=== PATIENT | female | born 1935 | race Caucasian/White ===

== ENCOUNTER → 2018-05-18 | Outpatient (CLI) | payer MEDICARE, OTHER ==
[2018-05-18 12:33] LABS: Appearance,Urine Clear (Clear); Bacteria,Urine Rare /hpf; Bilirubin,Urine Negative (Negative); Blood,Urine Negative (Negative); Color,Urine Yellow; Glucose,Urine (UA) Negative (Negative); Ketones,Urine Negative (Negative); Leukocyte Esterase,Urine Trace (Negative); Mucus,Urine Rare /hpf; Nitrite,Urine Negative (Negative); PH, Urine 5.5 (5.0-8.0); Protein,Urine 1+ (Negative); RBC,Urine 5 /hpf (0-5); Specific Gravity,Urine 1.018 (1.001-1.035); Squamous Epithelial Cell,Urine 2 /hpf (0-4); Urobilinogen,Urine <2.0 mg/dL (<2.0); WBC,Urine 2 /hpf (0-5)
[2018-05-18 13:40] LABS: HCT 41.5 % (34.0-46.0); HGB 13.3 gm/dL (11.4-16.0); MCH 27.6 pg (25.0-35.0); MCHC 32.1 g/dL (31.0-37.0); MCV 85.9 fL (80.0-100.0); Mean Platelet Volume 7.2; Platelet Count 478 k/uL (150-450); RBC 4.83 m/uL (3.80-5.40); RDW 13.9 % (11.5-15.5); WBC 8.6 k/uL (3.8-10.6)
[2018-05-18 13:47] LABS: Partial Thromboplastin Time 23.8 sec (22.0-30.0); Prothrombin Time 9.7 sec (9.0-12.0)
[2018-05-18 14:03] LABS: Albumin 3.9 g/dL (3.5-5.0); Calcium 9.2 mg/dL (8.4-10.2); Potassium 4.9 mmol/L (3.5-5.1); Total Bilirubin 0.3 mg/dL (0.2-1.3); Total Protein 7.2 g/dL (6.3-8.2)
== END ==
LOC: LABPAT 11:25
PROVIDERS: ATTEND Orthopaedic Surgery
DX: Z01.812 Encounter for preprocedural laboratory examination (principal); M19.90 Unspecified osteoarthritis, unspecified site
CPT/HCPCS: 36415; 80053; 81001; 85027; 85610; 85730; 87070; 87086

== ENCOUNTER 2018-05-25 07:00 | Inpatient (IN) | payer MEDICARE, OTHER ==
[~2018-05-25 07:00] MED LIST: ACETAMINOPHEN TAB 500 MG TAB PO ONE; MELOXICAM 7.5 MG TAB PO ONE; ROPIVACAINE 246.25 MG, EPINEPHrine 0.5 MG, KETOROLAC 30 MG, cloNIDine HCL/PF 80 MCG, WA... MISCELLANE ONE; TRANEXAMIC ACID 1,000 MG in SODIUM CHLORIDE 0.9% 50 ML IVPB ONE; ceFAZolin IN SWFI 2 GM/20 ML SYRINGE IVP ONE
[2018-05-25] MEDS ORDERED: LIDOCAINE 1% 20 ML VIAL (10MG/ML) FOR IV START INTRADERMA ONE (07:37)
[2018-05-25] MEDS ORDERED: LACTATED RINGERS 1,000 ML IV ONE ×2 (07:38→11:04)
[2018-05-25] MEDS ORDERED: DEXAMETHASONE SOD PHOS (MDV) 100 MG/10 ML VIAL IVP ONE (07:39)
[2018-05-25] MEDS ORDERED: ONDANSETRON 4 MG/2 ML VIAL IVP ONE (07:39)
[2018-05-25] MEDS ORDERED: HYDROmorphone 0.5 MG/0.5 ML SYRINGE IVP PRN ×3 (09:37)
[2018-05-25] MEDS ORDERED: DIAZEPAM 5 MG TAB PO PRN (09:37)
[2018-05-25] MEDS ORDERED: MAGNESIUM HYDROXIDE 2,400 MG/10 ML CUP PO PRN (09:37)
[2018-05-25] MEDS ORDERED: NALOXONE 0.4 MG/ML 1 ML VIAL IV PRN (09:37)
[2018-05-25] MEDS ORDERED: HYDROcodone/APAP 5-325MG 1 EACH TAB PO PRN ×2 (09:37)
[2018-05-25] MEDS ORDERED: Acetaminophen-Codeine 300-30mg TAB PO PRN (09:41)
[2018-05-25] MEDS ORDERED: fentaNYL (PF) 50 MCG/ML 2 ML AMP ONE (09:48)
[2018-05-25] MEDS ORDERED: HEPARIN SODIUM,PORCINE 10,000 UNIT/ML 1 ML VIAL ONE (09:48)
[2018-05-25] MEDS ORDERED: ceFAZolin 3,000 MG in SODIUM CHLORIDE 0.9% IRRIGATIO 3,000 ML IRRIGATION ONE (09:48)
[2018-05-25] MEDS ORDERED: MIDAZOLAM 2 MG/2 ML VIAL ONE (09:48)
[2018-05-25] MEDS ORDERED: SODIUM CHLORIDE 0.9% IRRIG 1,000 ML BTL IRRIGATION ONE (09:48)
[2018-05-25] MEDS ORDERED: TRANEXAMIC ACID 1,000 MG/10 ML VIAL ONE (09:48)
[2018-05-25] MEDS ORDERED: diphenhydrAMINE 50 MG/ML 1 ML VIAL ONE (09:48)
[2018-05-25] MEDS ORDERED: SODIUM CHLORIDE 0.9% 100 ML BAG ONE (09:48)
--- NOTE | 2018-05-25 11:00 | P.OP ---
Date of Procedure: 05/25/18 Preoperative Diagnosis: Severe osteoarthritis right hip Postoperative Diagnosis: Severe osteoarthritis right hip Procedure(s) Performed: Right total hip arthroplasty with a direct anterior approach Implants: Araiza and nephew Polarstem size 4 standard [employer]iza [employer] Nephew R3, 3 hole acetabular shell, 48 mm [employer] Nephew reflection 6.5 mm cancellus screw, 20 mm 2 [employer]iza [employer]hew R3, XLPE 20 acetabular liner [employer]iza [employer] Nephew Oxinium femoral head 32 m, +0 All components were press-fit. The articulation is Oxinium on polyethylene. Anesthesia: spinal Surgeon: Mehrdad Urena Pasting Machine Offbearer #1: Lorrie Vargas Estimated Blood Loss (ml): 50 Pathology: other (Femoral head) Condition: stable Disposition: PACU Indications for Procedure: After failure of conservative treatment we discussed the surgical and nonsurgical treatment options at length. Patient wishes to proceed with a total hip arthroplasty with a direct anterior approach. Complications specific to this procedure were discussed at length, including but not limited to infection, leg length discrepancy, dislocation, and nerve injury. Patient is aware of all these complications and informed consent was obtained Operative Findings: The operative findings are consistent with severe osteoarthritis of the right hip Description of Procedure: Patient was seen and evaluated in the preoperative area, consent was reviewed, and the surgical site was marked with a skin marker. Patient was then brought to the operating room and given prophylactic antibiotics intravenously. 1 g of Tranexamic acid was also given. A spinal anesthetic was administered by the anesthesia department. The patient was then placed on the [place] table with the bony prominences well-padded. The hip area was then prepped and draped in usual sterile fashion. A universal timeout was then performed, which confirmed the patient's name, surgical site, ALLERGIES, and procedure being performed. Next the incision site was located at 1 cm distal and 1 cm lateral to the anterior superior iliac spine. The skin and subcutaneous tissues were sharply incised. Incision was carefully dissected down to the fascia overlying the tensor fascia denise muscle. This fascia was then incised in line with the incision. Next, using blunt finger dissection, the tensor fascia denise muscle was dissected off its investing fascia. The muscle was then carefully retracted laterally with a cobra retractor over the lateral neck of the femur. Next, the circumflex vessels were identified and cauterized using the AquaMantis device. The anterior hip capsule was then exposed. The capsule was then opened and an inverted T fashion. Cobra retractors were then placed intracapsularly. The proximal femur was then visualized. The femoral neck was then osteotomized appropriate level above the lesser trochanter. Small amount of traction was placed with the [place] table. A small wedge of bone was then removed from the remaining femoral head. Next, using a corkscrew femoral head was easily removed from the acetabulum. On gross visual inspection, the femoral head had complete loss of articular cartilage in multiple periarticular osteophytes. Attention was then turned to the acetabulum. the acetabulum was exposed and any remaining labrum was excised. Sequential reaming of the acetabulum was performed using fluoroscopic guidance. When the appropriate size was reached, a trial was then placed. The position and fit of the trial was checked with fluoroscopy. The trial was then removed. Then, using fluoroscopic guidance, the final implant was impacted at 20 of anteversion and 40 of abduction, and fully seated in the acetabulum. 2 screws were then placed in the acetabulum. Again fluoroscopy was used to check position of the screws. Next, the liner was then impacted, with a 20 elevated liner located in the anterior superior quadrant. Component locking was confirmed. Attention was then directed to the femur. With the aid of the [place] table, the femur was externally rotated to approximately 130, extended, and abducted under the opposite leg. A side hook was then placed under the proximal femur, and the side hook elevator was used to elevate the proximal femur. Retractors were then placed. A capsular release was performed, as well as a release of the conjoined tendon, which afforded excellent visualization of the proximal femur. Next, a box osteotome was used to lateralize the proximal femur. A endband cutter hand was then used to locate the femoral canal. Sequential broaching was then performed with appropriate size which afforded excellent fixation in the proximal femur. A trial was then placed with appropriate head and neck, and the hip was gently reduced with the aid of the [place] table. Fluoroscopy was then used to check position of the components, as well as to ensure equal leg lengths. The hip was then gently dislocated and the trials were then removed. Final implants were then impacted and the hip was again reduced. Final fluoroscopic x-rays confirmed that the components were in anatomic position, as well as equal leg lengths. The hip was also taken through range of motion, and found to be stable. The hip was then copiously irrigated with antibiotic solution with pulsatile lavage. The hip was then irrigated with Irrisept solution. The soft tissues were then injected with a ropivacaine solution, which consisted of 246.25 mg of ropivacaine, 0.5 mg of epinephrine, 30 mg of Toradol, 80 g of clonidine, and 48.45 mL of sterile water, for a total of 100 mL of fluid injected. A second dose of 1 g of Tranexamic acid was also given. the fascia was then closed with 2-0 strata fix suture. The subcutaneous tissue was closed with 3-0 Vicryl. The subcuticular tissue was closed with 3-0 strata fix suture. The skin was then closed with Dermabond glue and a sterile silver dressing. The patient was then transferred to the recovery room in stable condition. The pastrycook's assistant MOHIT Martinez was required due to the complexity of surgery, and the need for skilled surgical corsetier for positioning, draping, exposure, retraction, and closure of the wound.
--- NOTE | 2018-05-25 11:28 | FL ---
EXAMINATION TYPE: FL guidance operating room, XR Hip Limited RT DATE OF EXAM: 05/25/2018 CLINICAL HISTORY: Right hip replacement. Right hip pain. TECHNIQUE: Fluoroscopy. COMPARISON: None. FINDINGS/IMPRESSION: Fluoroscopic guidance was provided during procedure performed by Dr. Urena. A total of 38 seconds of fluoroscopic time was utilized during the procedure and 2 spot images was a cquired.
--- NOTE | 2018-05-25 12:15 | XR ---
EXAMINATION TYPE: XR Hip Limited RT DATE OF EXAM: 05/25/2018 CLINICAL HISTORY: Status post right hip arthroplasty. Right hip pain. TECHNIQUE: AP and frogleg views of the right hip are obtained. COMPARISON: None. FINDINGS: There is no acute fracture/dislocation evident in the right hip. The joint space in the r ight hip appears within normal limits. The overlying soft tissue appears unremarkable. IMPRESSION: There is no acute fracture or dislocation in the right hip.
[2018-05-25 13:14] VITALS: BMI 30.6
[2018-05-25] MEDS: SODIUM CHLORIDE 0.9% 1,000 ML IV SCH (14:09)
[2018-05-25] MEDS: LACTATED RINGERS 1,000 ML IV SCH (14:09)
--- NOTE | 2018-05-25 14:52 | P.CONS ---
History of Present Illness - Reason for Consult Recommendations regarding antihypertensive medications - History of Present Illness This is a very pleasant 82-year-old female admitted for elective right hip arthroplasty, patient's oxacillin underwent surgery clinically doing well did not pass gas yet did not move her bowel yet. Her pain is well controlled. Patient did take her amlodipine today morning her blood pressure is fairly controlled patient is on very minimal dose of hydralazine which doesn't even affect the blood pressure because of which this will be discontinued Review of Systems REVIEW OF SYSTEMS: CONSTITUTIONAL: No fever, no malaise, no fatigue. HEENT: No recent visual problems or hearing problems. Denied any sore throat. CARDIOVASCULAR: No chest pain, orthopnea, PND, no palpitations, no syncope. PULMONARY: No shortness of breath, no cough, no hemoptysis. GASTROINTESTINAL: No diarrhea, no nausea, no vomiting, no abdominal pain. Normoactive bowel sounds. NEUROLOGICAL: No headaches, no weakness, no numbness. HEMATOLOGICAL: Denies any bleeding or petechiae. GENITOURINARY: Denies any burning micturition, frequency, or urgency. MUSCULOSKELETAL/RHEUMATOLOGICAL: Denies any joint pain, swelling, or any muscle pain. ENDOCRINE: Denies any polyuria or polydipsia. The rest of the 14-point review of systems is negative. Past Medical History Past Medical History: CVA/TIA, Eye Disorder, Hearing Disorder / Deafness, Hyperlipidemia, Hypertension, Osteoarthritis (OA), Thyroid Disorder Additional Past Medical History / Comment(s): GLAUCOMA. 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 History of Any Multi-Drug Resistant Organisms: None Reported Past Surgical History: Appendectomy, Joint Replacement Additional Past Surgical History / Comment(s): BILATERAL SHOULDER ARTHROPLASTY. BILATERAL CATARACTS W/ LENS IMPLANTS. TOTAL LT HIP. Past Anesthesia/Blood Transfusion Reactions: No Reported Reaction Past Psychological History: No Psychological Hx Reported Smoking Status: Never smoker Past Alcohol Use History: None Reported Past Drug Use History: None Reported - Past Family History Father Family Medical History: Cancer Medications and Allergies Home Medications Medication Instructions Recorded Confirmed Type Ibuprofen 800 mg PO DAILY PRN 07/17/17 05/25/18 History Timolol 0.5% Ophth Soln [Timoptic 1 drop BOTH EYES DAILY 07/17/17 05/25/18 History 0.5% Ophth Soln] Ascorbic Acid [Vitamin C] 500 mg PO DAILY 05/18/18 05/25/18 History Fiber Supplement 1 cap PO DAILY 05/18/18 05/25/18 History Vitamin B Complex/Folic Acid 0.4 mg PO DAILY 05/18/18 05/25/18 History [B-Complex Tablet] amLODIPine [Norvasc] 10 mg PO DAILY 05/18/18 05/25/18 History hydrALAZINE HCL [Apresoline] 10 mg PO TID 05/18/18 05/25/18 History prednisoLONE ACETATE 1% OPHTH 1 drops BOTH EYES QID 05/18/18 05/25/18 History [Pred Forte 1%] Allergies Allergy/AdvReac Type Severity Reaction Status Date / Time alcohol Allergy Nausea & Verified 05/25/18 13:17 Vomiting hydrocodone [From Vicodin] Allergy Itching Verified 05/25/18 13:17 tramadol [From Ultram] Allergy Unknown Verified 05/25/18 13:17 Physical Exam Vitals: Vital Signs Temp Pulse Pulse Resp BP BP Pulse Ox 05/25/18 14:15 150/90 05/25/18 12:45 18 05/25/18 12:15 82 18 142/65 95 05/25/18 12:00 82 16 139/63 95 05/25/18 11:45 84 16 127/59 94 L 05/25/18 11:38 82 16 135/60 96 05/25/18 11:23 98.0 F 84 16 127/59 94 L 05/25/18 07:29 97.6 F 88 18 145/75 97 Intake and Output 05/24/18 05/25/18 05/25/18 22:59 06:59 14:59 Intake Total 1101 Output Total 50 Balance 1051 Intake: IV 1101 Output: Estimated Blood Loss 50 Other: Weight 81 kg PHYSICAL EXAMINATION: GENERAL: The patient is alert and oriented x3, not in any acute distress. Well developed, well nourished. HEENT: Pupils are round and equally reacting to light. EOMI. No scleral icterus. No conjunctival pallor. Normocephalic, atraumatic. No pharyngeal erythema. No thyromegaly. CARDIOVASCULAR: S1 and S2 present. No murmurs, rubs, or gallops. PULMONARY: Chest is clear to auscultation, no wheezing or crackles. ABDOMEN: Soft, nontender, nondistended, normoactive bowel sounds. No palpable organomegaly. MUSCULOSKELETAL: Deferred to orthotics surgery patient doesn't have any surgical drain EXTREMITIES: No cyanosis, clubbing, or pedal edema. NEUROLOGICAL: Gross neurological examination did not reveal any focal deficits. SKIN: No rashes. Assessment and Plan Plan: -Left hip arthroplasty postoperative day 0: Patient postoperatively is clinically doing well. Pain management DVT prophylaxis as per primary service. Considering her age patient is high risk for narcotic induced delirium, if possible please try and avoid opiates, benzodiazepines, barbiturates, anticholinergic medications. -Hypertension: Continue with amlodipine, hydralazine is not beneficial particularly at her dose that will be discontinued -Hyperlipidemia -CVA TIA in the past
[2018-05-25] MEDS: Acetaminophen-Codeine 300-30mg TAB PO PRN (15:48)
[2018-05-25] MEDS: ceFAZolin IN SWFI 2 GM/20 ML SYRINGE IVP SCH (15:49)
[2018-05-25] MEDS: prednisoLONE ACETATE 1% OPHTH DROPS 5 ML BTL BOTH EYES SCH ×2 (18:05→22:42)
[2018-05-25] MEDS: ASPIRIN 325 MG TAB PO SCH (20:51)
[2018-05-25] MEDS: SENNOSIDES-DOCUSATE SODIUM 1 EACH TAB PO SCH (20:51)
[2018-05-25] MEDS: hydrALAZINE HCL 10 MG TAB PO SCH (22:40)
[2018-05-26] MEDS: ceFAZolin IN SWFI 2 GM/20 ML SYRINGE IVP SCH (00:04)
[2018-05-26] MEDS: SODIUM CHLORIDE 0.9% 1,000 ML IV SCH ×2 (01:34→18:16)
[2018-05-26] MEDS: Acetaminophen-Codeine 300-30mg TAB PO PRN (02:41)
[2018-05-26] MEDS: LACTATED RINGERS 1,000 ML IV SCH (06:12)
--- NOTE | 2018-05-26 08:23 | P.PN ---
Subjective Progress Note Date: 05/26/18 This is an 82-year-old female who is status post right total hip arthroplasty. This is postoperative day #1. Patient is seen and evaluated at bedside with Dr. Mehrdad Urena. Patient states that her pain is well controlled today and she has been up and out of bed. Patient denies any fever/chills, numbness, weakness, tingling, abdominal pain, shortness of breath or chest pain. Objective - Vital Signs Vital signs: Vital Signs Temp 98.1 F 05/26/18 01:59 Pulse 86 05/26/18 01:59 Resp 16 05/26/18 01:59 BP 148/85 05/26/18 01:59 Pulse Ox 93 L 05/26/18 01:59 Intake & Output 05/25/18 05/26/18 05/26/18 18:59 06:59 18:59 Intake Total 1101 Output Total 50 Balance 1051 Weight 81 kg Intake: IV 1101 Output: Estimated Blood Loss 50 Other: # Voids 1 - Exam Vital signs are stable. Patient is in no acute distress and is alert and oriented 3. Calf is soft and nontender to palpation. Dressing is clean, dry, and intact. Patient has full foot and ankle motion without pain or difficulty. Neurovascular status and circulatory status are intact. Assessment and Plan (1) Primary osteoarthritis of right hip Current Visit: Yes Status: Acute Code(s): M16.11 - UNILATERAL PRIMARY OSTEOARTHRITIS, RIGHT HIP SNOMED Code(s): 542073005 (2) S/P total hip arthroplasty Current Visit: No Status: Acute Code(s): Z96.649 - PRESENCE OF UNSPECIFIED ARTIFICIAL HIP JOINT SNOMED Code(s): 262379961172 Plan: Continue routine postop care. Continue antocoagulation. Weightbearing as tolerated with a walker. Leave dressing in place for 10 days. Likely discharge home tomorrow.
[2018-05-26] MEDS: ASPIRIN 325 MG TAB PO SCH ×2 (08:30→20:14)
[2018-05-26] MEDS: MELOXICAM 7.5 MG TAB PO SCH (08:31)
[2018-05-26] MEDS: hydrALAZINE HCL 10 MG TAB PO SCH (08:47)
[2018-05-26] MEDS: amLODIPine 10 MG TAB PO SCH (08:47)
[2018-05-26] MEDS: TIMOLOL 0.5% OPHTH DROPS 5 ML BTL BOTH EYES SCH (08:50)
[2018-05-26] MEDS: prednisoLONE ACETATE 1% OPHTH DROPS 5 ML BTL BOTH EYES SCH ×4 (08:50→19:49)
[2018-05-26 10:48] LABS: Basophils % (A) 0 %; Eosinophils % (A) 0 %; HCT 36.6 % (34.0-46.0); HGB 11.8 gm/dL (11.4-16.0); Lymphocytes # (A) 1.9 k/uL (1.0-4.8); Lymphocytes % (A) 12 %; MCH 27.9 pg (25.0-35.0); MCHC 32.3 g/dL (31.0-37.0); MCV 86.2 fL (80.0-100.0); Mean Platelet Volume 7.3; Monocytes # (A) 0.8 k/uL (0-1.0); Monocytes % (A) 5 %; Neutrophils # (A) 13.2 k/uL (1.3-7.7); Neutrophils % (A) 82 %; Platelet Count 433 k/uL (150-450); RBC 4.24 m/uL (3.80-5.40); RDW 14.1 % (11.5-15.5)
--- NOTE | 2018-05-26 18:46 | P.PN ---
Subjective Progress Note Date: 05/26/18 Progress note being dictated for Dr. Rao. Interval history:This is a very pleasant 82-year-old female admitted for elective right hip arthroplasty, patient's oxacillin underwent surgery clinically doing well did not pass gas yet did not move her bowel yet. Her pain is well controlled. Patient did take her amlodipine today morning her blood pressure is fairly controlled patient is on very minimal dose of hydralazine which doesn't even affect the blood pressure because of which this will be discontinued 05/26/2018 continues to do well. Ambulated with physical therapy, tolerated exertion well. Denies any lightheadedness dizziness or focal deficits Good diet intake with no nausea or vomiting. Passing flatus, no bowel movement. Incentive spirometer up to 1200. Objective - Vital Signs Vital signs: Vital Signs Temp 98.2 F 05/26/18 15:00 Pulse 85 05/26/18 15:00 Resp 12 05/26/18 15:00 BP 120/72 05/26/18 15:00 Pulse Ox 95 05/26/18 15:00 Intake & Output 05/25/18 05/26/18 05/26/18 18:59 06:59 18:59 Intake Total 1101 Output Total 50 Balance 1051 Weight 81 kg Intake: IV 1101 Output: Estimated Blood Loss 50 Other: # Voids 1 3 - Exam GENERAL: Sitting up in chair, alert and oriented x3, not in any acute distress. HEENT: Pupils are round and equally reacting to light. EOMI. No scleral icterus. No conjunctival pallor. Normocephalic, atraumatic. CARDIOVASCULAR: S1 and S2 present. No murmurs, rubs, or gallops. PULMONARY: Chest is clear to auscultation, no wheezing or crackles. ABDOMEN: Soft, nontender, nondistended, normoactive bowel sounds. No palpable organomegaly. MUSCULOSKELETAL: Deferred to orthotics EXTREMITIES: No cyanosis, clubbing, or pedal edema. NEUROLOGICAL: Gross neurological examination did not reveal any focal deficits. SKIN: No rashes. - Labs CBC & Chem 7: 05/26/18 08:35 Labs: Abnormal Lab Results - Last 24 Hours (Table) 05/26/18 Range/Units 08:35 WBC 16.0 H (3.8-10.6) k/uL Neutrophils # 13.2 H (1.3-7.7) k/uL Assessment and Plan Assessment: -Left hip arthroplasty -Hypertension: Continue with amlodipine, hydralazine is not beneficial particularly at her dose, discontinued -Hyperlipidemia -CVA TIA in the past Plan: Continue current medication regime ,monitoring and symptomatic treatment. Aggressive pulmonary toileting with incentive spirometer reinforced. PT. Pain management, anticoagulation as per orthopedic surgery. Leukocytosis, suspect reactive, repeat labs in am. Discharge planning in progress for tomorrow. The impression and plan of care has been dictated as directed. : I performed a history and examination of this patient, discussed the same with the dictator. I agree with the dictator's note ,documented as a scribe. Any additional findings or plans will be noted.
[2018-05-26] MEDS: SENNOSIDES-DOCUSATE SODIUM 1 EACH TAB PO SCH (20:14)
[2018-05-26] MEDS ORDERED: ZOLPIDEM 5 MG TAB PO PRN (23:41)
[2018-05-27] MEDS: LACTATED RINGERS 1,000 ML IV SCH (05:58)
[2018-05-27] MEDS: SODIUM CHLORIDE 0.9% 1,000 ML IV SCH (06:00)
[2018-05-27 07:41] LABS: Basophils # (A) 0.1 k/uL (0-0.2); Basophils % (A) 1 %; Eosinophils # (A) 0.2 k/uL (0-0.7); Eosinophils % (A) 2 %; HCT 33.7 % (34.0-46.0); HGB 10.9 gm/dL (11.4-16.0); Lymphocytes # (A) 1.7 k/uL (1.0-4.8); Lymphocytes % (A) 16 %; MCH 27.8 pg (25.0-35.0); MCHC 32.5 g/dL (31.0-37.0); MCV 85.7 fL (80.0-100.0); Mean Platelet Volume 7.1; Monocytes # (A) 0.7 k/uL (0-1.0); Monocytes % (A) 7 %; Neutrophils % (A) 74 %; Platelet Count 343 k/uL (150-450); RBC 3.93 m/uL (3.80-5.40); RDW 14.3 % (11.5-15.5); WBC 10.9 k/uL (3.8-10.6)
[2018-05-27 07:55] LABS: Calcium 8.7 mg/dL (8.4-10.2); Potassium 4.1 mmol/L (3.5-5.1)
--- NOTE | 2018-05-27 08:20 | P.DS ---
Providers Date of admission: 05/25/18 07:00 Expected date of discharge: 05/27/18 Attending physician: Mehrdad Urena Consults: 05/25/18 09:37 Consult Physician Routine Consulting Provider: Karo Goel Consult Reason/Comments: medical management Do you want consulting provider notified?: Yes 05/25/18 12:02 Consult Physician Routine Consulting Provider: Ranjan Wolf Consult Reason/Comments: medical managment Do you want consulting provider notified?: Yes Primary care physician: Karo Goel - Discharge Diagnosis(es) (1) Primary osteoarthritis of right hip Current Visit: Yes Status: Acute (2) S/P total hip arthroplasty Current Visit: No Status: Acute Hospital Course: This is a 82-year-old female with known history of degenerative arthritis of the right hip. The patient presents for evaluation. After discussion and consideration patient elects to proceed with total hip arthroplasty. The patient is seen preoperatively by Dr. Urena and medically cleared for surgery by their primary care physician. Past medical history significant for hypertension, hyperlipidemia, history of CVA TIA. Patient is admitted to [facility] on 05/25/2018 for total hip arthroplasty. The procedures performed without complication or sequelae. The patient is doing well postoperatively. Labs and vital signs are stable on day of discharge. On day of discharge patient's hip incision is healing well. There is minimal erythema. There is no drainage noted at this time. There is minimal soft tissue swelling to the hip and thigh. Patient has full foot and ankle motion without difficulty or pain. Neurovascular status to the right lower extremity is intact. Patient is discharged home in good condition. Please see med rec for accurate list of home medications. Plan - Discharge Summary Discharge Rx Participant: No New Discharge Prescriptions: New Acetaminophen-Codeine 300-30mg [Tylenol #3] 1 - 2 tab PO Q6H PRN #56 tablet PRN Reason: Pain Aspirin 325 mg PO BID #60 tab Sennosides [Senokot] 1 tab PO BID #60 tablet No Action Ibuprofen 800 mg PO DAILY PRN PRN Reason: Pain Timolol 0.5% Ophth Soln [Timoptic 0.5% Ophth Soln] 1 drop BOTH EYES DAILY amLODIPine [Norvasc] 10 mg PO DAILY Ascorbic Acid [Vitamin C] 500 mg PO DAILY Fiber Supplement 1 cap PO DAILY hydrALAZINE HCL [Apresoline] 10 mg PO TID prednisoLONE ACETATE 1% OPHTH [Pred Forte 1%] 1 drops BOTH EYES QID Vitamin B Complex/Folic Acid [B-Complex Tablet] 0.4 mg PO DAILY Discharge Medication List Ibuprofen 800 mg PO DAILY PRN 07/17/17 [History] Timolol 0.5% Ophth Soln [Timoptic 0.5% Ophth Soln] 1 drop BOTH EYES DAILY [History] Ascorbic Acid [Vitamin C] 500 mg PO DAILY 05/18/18 [History] Fiber Supplement 1 cap PO DAILY 05/18/18 [History] Vitamin B Complex/Folic Acid [B-Complex Tablet] 0.4 mg PO DAILY 05/18/18 [ History] amLODIPine [Norvasc] 10 mg PO DAILY 05/18/18 [History] hydrALAZINE HCL [Apresoline] 10 mg PO TID 05/18/18 [History] prednisoLONE ACETATE 1% OPHTH [Pred Forte 1%] 1 drops BOTH EYES QID 05/18/18 [ History] Acetaminophen-Codeine 300-30mg [Tylenol #3] 1 - 2 tab PO Q6H PRN #56 tablet [Rx] Aspirin 325 mg PO BID #60 tab 05/27/18 [Rx] Sennosides [Senokot] 1 tab PO BID #60 tablet 05/27/18 [Rx] Follow up Appointment(s)/Referral(s): [facility] Nurse, [NON-STAFF] - Mehrdad Urena DO [Doctor of Osteopathic Medicine] - 2 Weeks Activity/Diet/Wound Care/Special Instructions: Weightbearing as tolerated with walker. Leave dressing intact. Dressing may be removed by home care nurse in 10 days. May shower with dressing on. Follow-up with [facility] in 2 weeks, please call with any questions or concerns [phone]. Discharge Disposition: HOME WITH HOME HEALTH SERVICES
[2018-05-27] MEDS: Acetaminophen-Codeine 300-30mg TAB PO PRN (08:45)
[2018-05-27 09:26] VITALS: BP 148/71; PULSE 104; RESP 16; TEMP 98.3
[2018-05-27] MEDS: MELOXICAM 7.5 MG TAB PO SCH (09:52)
[2018-05-27] MEDS: amLODIPine 10 MG TAB PO SCH (09:52)
[2018-05-27] MEDS: ASPIRIN 325 MG TAB PO SCH (09:52)
[2018-05-27] MEDS: TIMOLOL 0.5% OPHTH DROPS 5 ML BTL BOTH EYES SCH (09:53)
[2018-05-27] MEDS: prednisoLONE ACETATE 1% OPHTH DROPS 5 ML BTL BOTH EYES SCH (09:53)
--- NOTE | 2018-05-27 22:09 | P.PN ---
Subjective Progress Note Date: 05/27/18 Principal diagnosis: Right hip total arthroplasty Interval history:This is a very pleasant 82-year-old female admitted for elective right hip arthroplasty, patient's oxacillin underwent surgery clinically doing well did not pass gas yet did not move her bowel yet. Her pain is well controlled. Patient did take her amlodipine today morning her blood pressure is fairly controlled patient is on very minimal dose of hydralazine which doesn't even affect the blood pressure because of which this will be discontinued 05/26/2018 continues to do well. Ambulated with physical therapy, tolerated exertion well. Denies any lightheadedness dizziness or focal deficits Good diet intake with no nausea or vomiting. Passing flatus, no bowel movement. Incentive spirometer up to 1200. 05/27/2018 Patient denied any complains of chest pain or shortness of breath today. Right hip pain is much improved now. No nausea vomiting or abdominal pain. Tolerating oral diet. Patient is well controlled. No headache or dizziness or lightheadedness. Patient is being discharged home today otherwise. Current medications reviewed Objective - Vital Signs Vital signs: Vital Signs Temp 98.3 F 05/27/18 08:45 Pulse 104 H 05/27/18 08:45 Resp 16 05/27/18 08:45 BP 148/71 05/27/18 08:45 Pulse Ox 97 05/27/18 08:45 Intake & Output 05/26/18 05/27/18 05/27/18 18:59 06:59 18:59 Output Total 100 Balance -100 Output: Urine 100 Other: # Voids 3 1 - Exam - Exam GENERAL: Sitting up in chair, alert and oriented x3, not in any acute distress. HEENT: Pupils are round and equally reacting to light. EOMI. No scleral icterus. No conjunctival pallor. Normocephalic, atraumatic. CARDIOVASCULAR: S1 and S2 present. No murmurs, rubs, or gallops. PULMONARY: Chest is clear to auscultation, no wheezing or crackles. ABDOMEN: Soft, nontender, nondistended, normoactive bowel sounds. No palpable organomegaly. MUSCULOSKELETAL: Deferred to orthotics EXTREMITIES: No cyanosis, clubbing, or pedal edema. NEUROLOGICAL: Gross neurological examination did not reveal any focal deficits. SKIN: No rashes. - Labs CBC & Chem 7: 05/27/18 06:49 05/27/18 06:49 Labs: Abnormal Lab Results - Last 24 Hours (Table) 05/27/18 05/27/18 Range/Units 06:49 06:49 WBC 10.9 H (3.8-10.6) k/uL Hgb 10.9 L (11.4-16.0) gm/dL Hct 33.7 L (34.0-46.0) % Neutrophils # 8.0 H (1.3-7.7) k/uL BUN 23 H (7-17) mg/dL Creatinine 1.06 H (0.52-1.04) mg/dL Assessment and Plan Assessment: -Left hip arthroplasty -Hypertension: Continue with amlodipine -Hyperlipidemia -CVA TIA in the past - Leukocytosis likely reactive. resolved. Plan: Continue current medication regime ,monitoring and symptomatic treatment. Aggressive pulmonary toileting with incentive spirometer reinforced. PT. Pain management, anticoagulation as per orthopedic surgery. Leukocytosis is resolved. Patient is being discharged home today. Recommended to follow up with primary care physician for titration of blood pressure medications.
== END 2018-05-27 12:42 | disposition home health service (06) | DRG 470 ==
LOC: 2ORMAIN 07:00 → 4SSUR 11:32
PROVIDERS: ADMIT Orthopaedic Surgery; ATTEND Orthopaedic Surgery
PROC: 0SR906A Replacement of Right Hip Joint with Oxidized Zirconium on Polyethylene Synthetic Substitute, Uncemented, Open Approach (ICD-10-PCS; principal; 2018-05-25 09:15)
DX: M16.11 Unilateral primary osteoarthritis, right hip (principal); D72.829 Elevated white blood cell count, unspecified; E78.5 Hyperlipidemia, unspecified; H40.9 Unspecified glaucoma; H91.90 Unspecified hearing loss, unspecified ear; I10 Essential (primary) hypertension; G89.29 Other chronic pain; K21.9 Gastro-esophageal reflux disease without esophagitis; M47.9 Spondylosis, unspecified; K27.9 Peptic ulcer, site unspecified, unspecified as acute or chronic, without hemorrhage or perforation; E03.9 Hypothyroidism, unspecified; M17.11 Unilateral primary osteoarthritis, right knee; E66.9 Obesity, unspecified; Z68.30 Body mass index [BMI] 30.0-30.9, adult; Z79.899 Other long term (current) drug therapy; Z88.5 Allergy status to narcotic agent; Z91.048 Other nonmedicinal substance allergy status; Z86.73 Personal history of transient ischemic attack (TIA), and cerebral infarction without residual deficits; Z96.611 Presence of right artificial shoulder joint; Z96.612 Presence of left artificial shoulder joint; Z96.642 Presence of left artificial hip joint; Z90.49 Acquired absence of other specified parts of digestive tract; Z98.42 Cataract extraction status, left eye; Z98.41 Cataract extraction status, right eye; Z96.1 Presence of intraocular lens; Z80.9 Family history of malignant neoplasm, unspecified; Z82.49 Family history of ischemic heart disease and other diseases of the circulatory system
CPT/HCPCS: 73501; 80048; 85025; 86850; 86870; 86880; 86891; 86900; 86901; 88300

== ENCOUNTER 2019-07-25 12:25 | Inpatient (IN) | payer MEDICARE, OTHER ==
[2019-07-25] MEDS ORDERED: ACETAMINOPHEN TAB 325 MG TAB PO PRN (13:07)
--- NOTE | 2019-07-25 13:11 | ED ---
General Adult HPI - General Chief complaint: Neuro Symptoms/Deficit Stated complaint: TIA Time Seen by Provider: 07/25/19 12:46 Source: patient Mode of arrival: ambulatory Limitations: no limitations - History of Present Illness Initial comments: Dictation was produced using [employer] dictation software. please excuse any grammatical, word or spelling errors. Chief Complaint: 83-year-old female transferred from [facility] for strokelike symptoms. History of Present Illness: An is an 83-year-old female she was transferred via EMS from nearby emergency department for escalation of care. Patient initially presented to the emergency Department for slurred speech and right facial droop. Family at bedside reports that her symptoms began 3-4 days ago. She was evaluated at [facility] [place] she had negative CT imaging and laboratory evaluation. She was transferred here for neurology. The ROS documented in this emergency department record has been reviewed and confirmed by me. Those systems with pertinent positive or negative responses have been documented in the HPI. All other systems are other negative and/or noncontributory. PHYSICAL EXAM: General Impression: Alert and oriented x3, not in acute distress HEENT: Normocephalic atraumatic, extra-ocular movements intact, pupils equal and reactive to light bilaterally, mucous membranes moist. Cardiovascular: Heart regular rate and rhythm, S1&S2 audible, no murmurs, rubs or gallops Chest: Lungs clear to auscultation bilaterally, no rhonchi, no wheeze, no rales Abdomen: Bowel sounds present, abdomen soft, non-tender, non-distended, no organomegaly Musculoskeletal: Pulses present and equal in all extremities, no peripheral edema Motor: no focal deficits noted Neurological: CN II-XII grossly intact, no focal motor or sensory deficits noted no drift, very mild right-sided facial, slurred speech, not aphasic Skin: Intact with no visualized rashes Psych: Normal affect and mood ED course: 83-year-old female transferred from [facility] for CVA. Onset of symptoms 4 days ago. Patient is outside of the TPA window. Chest her documentation was reviewed. Discussed patient case with Dr. Neely who is willing to accept patients care. Auscultation ordered for neurology. All signs upon arrival are within acceptable limits. Patient is well-appearing at bedside. - Related Data Home Medications Medication Instructions Recorded Confirmed Timolol 0.5% Ophth Soln [Timoptic 1 drop BOTH EYES DAILY 07/17/17 05/25/18 0.5% Ophth Soln] Ascorbic Acid [Vitamin C] 500 mg PO DAILY 05/18/18 05/25/18 Fiber Supplement 1 cap PO DAILY 05/18/18 05/25/18 Vitamin B Complex/Folic Acid 0.4 mg PO DAILY 05/18/18 05/25/18 [B-Complex Tablet] amLODIPine [Norvasc] 10 mg PO DAILY 05/18/18 05/25/18 hydrALAZINE HCL [Apresoline] 10 mg PO TID 05/18/18 05/25/18 prednisoLONE ACETATE 1% OPHTH 1 drops BOTH EYES QID 05/18/18 05/25/18 [Pred Forte 1%] Previous Rx's Medication Instructions Recorded Acetaminophen-Codeine 300-30mg 1 - 2 tab PO Q6H PRN #56 tablet 05/27/18 [Tylenol #3] Aspirin 325 mg PO BID #60 tab 05/27/18 Sennosides [Senokot] 1 tab PO BID #60 tablet 05/27/18 Allergies Allergy/AdvReac Type Severity Reaction Status Date / Time alcohol Allergy Nausea & Verified 05/25/18 13:17 Vomiting hydrocodone [From Vicodin] Allergy Itching Verified 05/25/18 13:17 tramadol [From Ultram] Allergy Unknown Verified 05/25/18 13:17 Review of Systems ROS Statement: Those systems with pertinent positive or pertinent negative responses have been documented in the HPI. ROS Other: All systems not noted in ROS Statement are negative. Past Medical History Past Medical History: CVA/TIA, Eye Disorder, Hearing Disorder / Deafness, Hyperlipidemia, Hypertension, Osteoarthritis (OA), Thyroid Disorder Additional Past Medical History / Comment(s): GLAUCOMA. 2009 CVA, NO RESIDUAL. "BORDERLINE THYROID." RT HIP PROB. History of Any Multi-Drug Resistant Organisms: None Reported Past Surgical History: Appendectomy, Joint Replacement Additional Past Surgical History / Comment(s): BILATERAL SHOULDER ARTHROPLASTY. BILATERAL CATARACTS W/ LENS IMPLANTS. TOTAL LT HIP. Past Anesthesia/Blood Transfusion Reactions: No Reported Reaction Past Psychological History: No Psychological Hx Reported Smoking Status: Never smoker Past Alcohol Use History: None Reported Past Drug Use History: None Reported - Past Family History Father Family Medical History: Cancer General Exam Limitations: no limitations Course Vital Signs 07/25/19 12:27 Temperature 98.5 F Pulse Rate 74 Respiratory 19 Rate Blood Pressure 175/89 O2 Sat by Pulse 97 Oximetry Disposition Clinical Impression: Slurred speech Disposition: ADMITTED IP TO THIS HOSP Condition: Fair Referrals: Karo Goel MD [Primary Care Provider] - 1-2 days Decision Time: 13:11
[2019-07-25] MEDS: SODIUM CHLORIDE 0.9% 1,000 ML IV SCH (18:16)
[2019-07-25] MEDS ORDERED: ASPIRIN 81 MG PO STA (23:13)
[2019-07-25] MEDS ORDERED: guaiFENesin-Coden 100-10MG/5ML 10 ML CUP PO PRN (23:13)
[2019-07-25] MEDS ORDERED: METOPROLOL TARTRATE 12.5 MG TAB PO STA (23:15)
--- NOTE | 2019-07-25 23:19 | P.HPIM ---
History of Present Illness this is a pleasant 83 years old female with past medical history of CVA/TIA, hyperlipidemia, hypertension, hypothyroidism, glaucoma. Patient has recent history of upper respiratory symptoms and she's been taking some cough medicine including codeine including this morning. Patient lives with daughter and family at her place. She presents with 3-4 days history of slurred speech with no other symptoms. she denies headache, no blurred vision, no weakness or numbness or abnormal sensation. No chest pain or dyspnea. No change in urine or bowel habits. pt first presents to [facility] and was transferred to [facility] for neurological service evaluation which is not available currently at [facility] vitals stable, blood pressure 175/89.labs at [facility] showing unremarkable BMP except for creatinine of 1.1, unremarkable liver enz, and CBC, UA is suspicious for UTI , CT of brain: no acute process, mild cerebral atrophy as per radiologist. EKG: NSR at [address]-T changes, qTc 433 in emergency room she recieved one dose of keflex, and norvasc 10 mg we will start ceftriaxone and f/u urine culture, start asprin 81 mg Review of Systems CONSTITUTIONAL: No fever, no malaise, no fatigue. HEENT: No recent visual problems or hearing problems. Denied any sore throat. CARDIOVASCULAR: No orthopnea, PND, no palpitations, no syncope. PULMONARY: No shortness of breath, no cough, no hemoptysis. GASTROINTESTINAL: No diarrhea, no nausea, no vomiting, no abdominal pain. No rmoactive bowel sounds. NEUROLOGICAL: No headaches, no weakness, no numbness. HEMATOLOGICAL: Denies any bleeding or petechiae. GENITOURINARY: Denies any burning micturition, frequency, or urgency. MUSCULOSKELETAL/RHEUMATOLOGICAL: Denies any joint pain, swelling, or any muscle pain. ENDOCRINE: Denies any polyuria or polydipsia. Past Medical History Past Medical History: CVA/TIA, Eye Disorder, Hearing Disorder / Deafness, Hyperlipidemia, Hypertension, Osteoarthritis (OA), Thyroid Disorder Additional Past Medical History / Comment(s): GLAUCOMA. 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 History of Any Multi-Drug Resistant Organisms: None Reported Past Surgical History: Appendectomy, Joint Replacement Additional Past Surgical History / Comment(s): BILATERAL SHOULDER ARTHROPLASTY. BILATERAL CATARACTS W/ LENS IMPLANTS. TOTAL LT HIP. Past Anesthesia/Blood Transfusion Reactions: No Reported Reaction Past Psychological History: No Psychological Hx Reported Smoking Status: Never smoker Past Alcohol Use History: None Reported Past Drug Use History: None Reported - Past Family History Father Family Medical History: Cancer Medications and Allergies Home Medications Medication Instructions Recorded Confirmed Type amLODIPine [Norvasc] 10 mg PO DAILY 05/18/18 07/25/19 History hydrALAZINE HCL [Apresoline] 10 mg PO TID 05/18/18 07/25/19 History Cephalexin [Keflex] 500 mg PO TID 07/25/19 07/25/19 History Cyanocobalamin (Vitamin B-12) 1,000 mcg PO DAILY 07/25/19 07/25/19 History [Vitamin B-12] Timolol 0.5% Ophth Gel Forming 1 drop BOTH EYES HS 07/25/19 07/25/19 History [Timoptic-Xe] guaiFENesin-Coden 100-10MG/5ML 5 - 10 ml PO Q4H PRN 07/25/19 07/25/19 History [Robitussin AC] Allergies Allergy/AdvReac Type Severity Reaction Status Date / Time alcohol Allergy Nausea & Verified 05/25/18 13:17 Vomiting hydrocodone [From Vicodin] Allergy Itching Verified 05/25/18 13:17 tramadol [From Ultram] Allergy Unknown Verified 05/25/18 13:17 Physical Exam Vitals: Vital Signs Temp Pulse Resp BP Pulse Ox 07/25/19 12:27 98.5 F 74 19 175/89 97 Intake and Output 07/24/19 07/25/19 07/25/19 22:59 06:59 14:59 Other: Weight 79.379 kg GENERAL: The patient is alert and oriented x3, not in any acute distress. Well developed, well nourished. HEENT: Pupils are round and equally reacting to light. EOMI. No scleral icterus. No conjunctival pallor. Normocephalic, atraumatic. No pharyngeal erythema. No thyromegaly. CARDIOVASCULAR: S1 and S2 present. No murmurs, rubs, or gallops. PULMONARY: Chest is clear to auscultation, no wheezing or crackles. ABDOMEN: Soft, nontender, nondistended, normoactive bowel sounds. No palpable organomegaly. MUSCULOSKELETAL: No joint swelling or deformity. EXTREMITIES: No cyanosis, clubbing, or pedal edema. -NEUROLOGICAL: cranial nerves are grossly intact except for mild facial dictation and slurred speech. Strength is 5/5 and sensation is intact in all extremities. Meningeal signs are absent SKIN: No rashes. No petechiae Assessment and Plan Assessment: slurred speech,possible TIA possible UTI Hypertension, uncontrolled on admission History of CVA/TIA Hyperlipidemia Hypothyroidism History of glaucoma Plan: this is a pleasant 53 years old female who presents with possible TIA and UTI. Continue with neuro check. Neuro consult. c/w aspirin, start rocephin and f/u UC Labs and medication were reviewed.. Continue same treatment. Continue with symptomatic treatment. Resume home medication. Monitor lytes and vitals. DVT and GI prophylaxis. Further recommendations of the clinical course of the patient DVT prophylaxis: Subcutaneous heparin GI Prophylaxis: Pepcid PT/OT: Pending Prognosis is guarded
[2019-07-26 06:55] LABS: Basophils # (A) 0.1 k/uL (0-0.2); Basophils % (A) 2 %; Eosinophils # (A) 0.4 k/uL (0-0.7); Eosinophils % (A) 6 %; HCT 42.2 % (34.0-46.0); HGB 13.7 gm/dL (11.4-16.0); Lymphocytes # (A) 1.6 k/uL (1.0-4.8); Lymphocytes % (A) 23 %; MCH 27.9 pg (25.0-35.0); MCHC 32.4 g/dL (31.0-37.0); MCV 86.2 fL (80.0-100.0); Mean Platelet Volume 7.8; Monocytes # (A) 0.5 k/uL (0-1.0); Monocytes % (A) 8 %; Neutrophils # (A) 4.1 k/uL (1.3-7.7); Neutrophils % (A) 59 %; Platelet Count 339 k/uL (150-450); RDW 13.5 % (11.5-15.5); WBC 6.9 k/uL (3.8-10.6)
[2019-07-26 07:07] LABS: Calcium 9.3 mg/dL (8.4-10.2); Potassium 3.9 mmol/L (3.5-5.1)
[2019-07-26] MEDS: SODIUM CHLORIDE 0.9% 1,000 ML IV SCH (08:17)
[2019-07-26] MEDS: CYANOCOBALAMIN 500 MCG TAB PO SCH (08:27)
[2019-07-26] MEDS: amLODIPine 10 MG TAB PO SCH (08:27)
[2019-07-26] MEDS: ASPIRIN 81 MG PO SCH (08:27)
[2019-07-26] MEDS ORDERED: METOPROLOL TARTRATE 25 MG TAB PO SCH (09:00)
[2019-07-26] MEDS ORDERED: ASPIRIN 325 MG TAB PO SCH (09:00)
--- NOTE | 2019-07-26 10:20 | P.CNNES ---
History of Present Illness Consult date: 07/26/19 Requesting physician: Hernan Zabala Reason for Consult: CVA History of Present Illness: Patient is a 83-year-old left-handed female, who states that she woke up on Thursday morning, 07/22/2019 and her speech was slurred. She denied any other focal symptoms like facial droop, numbness tingling weakness problem with the v ision problem with balance. She felt that her symptoms will go away therefore stayed home. As his symptoms persisted, she went to [facility], where she had computed tomography scan of the head, which revealed no acute process. Patient was transferred to [facility] yesterday for neurological evaluation. Patient was not a candidate for TPA. Patient had an EKG done at [facility] which revealed sinus rhythm. Borderline prolonged KS interval. Inferior infarct old, anterior infarct, old. Patient's UA showed negative nitrite, 3+ leukocyte Estrace, more than 25 WBCs and 129 few bacteria. Chem-20 was normal. CPK 48 CBC normal with hemoglobin 14.8 platelets 448. Computed tomography scan of the head showed no acute intracranial hemorrhage or midline shift. There is mild diffuse age- related cerebral atrophy and mild to moderate nonspecific white matter changes. Areas of acute/subacute ischemia difficult to exclude without prior comparison. Consider MRI of follow-up which is more sensitive. Patient's blood pressure in the ER was 125/76 pulse rate 74 afebrile. Patient states she had history of a TIA 7 years ago when it affected her left arm and facial region for a short while, with no residual deficits. She did go to ER. Patient does not take any antiplatelet medication at home. Patient has hypertension for 7 years. She denies diabetes. She denies tobacco use ever. Denies hyperlipidemia. Patient's blood tests from this morning showed cholesterol 251, LDL 175, HDL 54 and triglycerides 111. Review of Systems As above in HPI. Otherwise completely unremarkable. She is very hard of hearing and uses hearing aids. Past Medical History Past Medical History: CVA/TIA, Eye Disorder, Hearing Disorder / Deafness, Hyperlipidemia, Hypertension, Osteoarthritis (OA), Thyroid Disorder Additional Past Medical History / Comment(s): GLAUCOMA. 2009 CVA, NO RESIDUAL. "BORDERLINE THYROID." RT HIP PROB. History of Any Multi-Drug Resistant Organisms: None Reported Past Surgical History: Appendectomy, Joint Replacement Additional Past Surgical History / Comment(s): BILATERAL SHOULDER ARTHROPLASTY. BILATERAL CATARACTS W/ LENS IMPLANTS. TOTAL LT HIP. Past Anesthesia/Blood Transfusion Reactions: No Reported Reaction Past Psychological History: No Psychological Hx Reported Smoking Status: Never smoker Past Alcohol Use History: None Reported Past Drug Use History: None Reported - Past Family History Father Family Medical History: Cancer Medications and Allergies Home Medications Medication Instructions Recorded Confirmed Type amLODIPine [Norvasc] 10 mg PO DAILY 05/18/18 07/25/19 History hydrALAZINE HCL [Apresoline] 10 mg PO TID 05/18/18 07/25/19 History Cephalexin [Keflex] 500 mg PO TID 07/25/19 07/25/19 History Cyanocobalamin (Vitamin B-12) 1,000 mcg PO DAILY 07/25/19 07/25/19 History [Vitamin B-12] Timolol 0.5% Ophth Gel Forming 1 drop BOTH EYES HS 07/25/19 07/25/19 History [Timoptic-Xe] guaiFENesin-Coden 100-10MG/5ML 5 - 10 ml PO Q4H PRN 07/25/19 07/25/19 History [Robitussin AC] Allergies Allergy/AdvReac Type Severity Reaction Status Date / Time alcohol Allergy Nausea & Verified 05/25/18 13:17 Vomiting hydrocodone [From Vicodin] Allergy Itching Verified 05/25/18 13:17 tramadol [From Ultram] Allergy Unknown Verified 05/25/18 13:17 Physical Examination - Vital Signs Vital Signs: Vital Signs Temp Pulse Pulse Resp BP BP Pulse Ox 07/26/19 08:05 97 07/26/19 08:00 97.9 F 74 18 156/71 94 L 07/26/19 03:05 98.7 F 78 16 171/75 97 07/25/19 23:35 98.2 F 81 16 176/86 94 L 07/25/19 19:50 98.3 F 84 16 165/79 95 07/25/19 18:35 92 134/77 98 07/25/19 18:00 86 20 174/98 95 07/25/19 17:30 84 20 175/99 96 07/25/19 17:00 83 18 165/99 93 L 07/25/19 16:30 82 19 169/98 94 L 07/25/19 16:00 80 23 167/93 95 07/25/19 15:30 83 18 166/91 95 07/25/19 15:00 74 19 139/70 94 L 07/25/19 14:30 75 21 150/91 89 L 07/25/19 13:30 72 17 159/91 95 07/25/19 12:27 98.5 F 74 19 175/89 97 Intake and Output 07/25/19 07/26/19 07/26/19 22:59 06:59 14:59 Intake Total 240 Balance 240 Intake: Oral 240 Other: Weight 83.8 kg On examination patient is an elderly female, very pleasant in no acute distress. Patient is alert and awake fairly well oriented. Her speech is mild to moderately dysarthric but no aphasia. On cranial nerve examination pupils are round and reactive to light, visual sanders are full on confrontation, extraocular muscles are intact with no nystagmus. Patient has very mild right facial asymmetry. Tongue protrudes midline. Palatal elevation and sensation normal. Patient is very hard of hearing and uses hearing aids. On muscle strength testing patient has mild right pronation but no drift. The strength appears fairly normal in arms and legs distally and proximally reflexes are diminished and plantars are downgoing. Sensory touch is equal with no neglect. No patient has mild dysmetria for [id number] testing on the right. Tone and bulk of muscles normal. No carotid bruit or murmur. S1 and S2 audible. Results - Laboratory Findings CBC and BMP: 07/26/19 06:18 07/26/19 06:18 Abnormal Lab Findings: Abnormal Labs 07/26/19 06:18 Cholesterol 251 H LDL Cholesterol, Calc 175 H Assessment and Plan Assessment: * Acute ischemic stroke with mild to moderate dysarthria and very subtle right facial brachial weakness. Stroke possible due to small vessel disease. Need to rule out embolic source. * Hypertension * Hyperlipidemia * Previous history of TIA 7 years ago. Plan: * Patient will undergo MRI of the brain to localize CVA. We will also check MRA of the head to rule out any intracranial arterial stenosis. * We will check carotid Doppler to rule out carotid stenosis and 2-D echo with bubble study to rule out PFO or other embolic source. * Continue telemetry monitoring. * Agree with starting aspirin. We will also start Lipitor 20 mg for dyslipidemia. * Speech therapy.
--- NOTE | 2019-07-26 11:31 | P.PN ---
Subjective this is a pleasant 83 years old female with past medical history of CVA/TIA, hyperlipidemia, hypertension, hypothyroidism, glaucoma. Patient has recent history of upper respiratory symptoms and she's been taking some cough medicine including codeine including this morning. Patient lives with daughter and family at her place. She presents with 3-4 days history of slurred speech with no other symptoms. she denies headache, no blurred vision, no weakness or numbness or abnormal sensation. No chest pain or dyspnea. No change in urine or bowel habits. pt first presents to [facility] and was transferred to [facility] for neurological service evaluation which is not available currently at [facility] vitals stable, blood pressure 175/89.labs at [facility] showing unremarkable BMP except for creatinine of 1.1, unremarkable liver enz, and CBC, UA is suspicious for UTI , CT of brain: no acute process, mild cerebral atrophy as per radiologis t. EKG: NSR at [address]-T changes, qTc 433 in emergency room she recieved one dose of keflex, and norvasc 10 mg we will start ceftriaxone and f/u urine culture, start asprin 81 mg 07/26/2019 Patient is awake and alert, her voice looks to me less slurred compared to yesterday, family at bedside think also her voice is better than yesterday. There is no change in the tone of the voice. Patient is not in respiratory distress. She denies stridor. No breathing difficulty. She is able to answer questions appropriately. However she has some delay in response. She has mild fascial weakness. Neurologist evaluated the patient and recommended MRI/A of the brain, carotid duplex and echocardiogram. This is a still pending. Patient was started on aspirin review of systems: CONSTITUTIONAL: No fever, no malaise, no fatigue. HEENT: No recent visual problems or hearing problems. Denied any sore throat. CARDIOVASCULAR: No orthopnea, PND, no palpitations, no syncope. PULMONARY: No shortness of breath, no cough, no hemoptysis. GASTROINTESTINAL: No diarrhea, no nausea, no vomiting, no abdominal pain. Normoactive bowel sounds. NEUROLOGICAL: No headaches, no weakness, no numbness. HEMATOLOGICAL: Denies any bleeding or petechiae. GENITOURINARY: Denies any burning micturition, frequency, or urgency. MUSCULOSKELETAL/RHEUMATOLOGICAL: Denies any joint pain, swelling, or any muscle pain. ENDOCRINE: Denies any polyuria or polydipsia. Active Medications Generic Name Dose Route Start Last Admin Trade Name Freq PRN Reason Stop Dose Admin Acetaminophen 650 mg 07/25/19 13:07 Tylenol Tab PO Q6HR PRN Pain Amlodipine Besylate 10 mg 07/26/19 09:00 07/26/19 08:27 Norvasc PO 10 mg DAILY DAVEY Administration Aspirin 81 mg 07/26/19 09:00 07/26/19 08:27 Aspirin PO 81 mg DAILY DAVEY Administration Atorvastatin Calcium 20 mg 07/26/19 21:00 Lipitor PO HS DAVEY Cyanocobalamin 1,000 mcg 07/26/19 09:00 07/26/19 08:27 Vitamin B-12 PO 1,000 mcg DAILY DAVEY Administration Guaifenesin/Codeine Phosphate 5 ml 07/25/19 23:13 Robitussin Ac PO Q4H PRN Cough Sodium Chloride 1,000 mls @ 20 mls/hr 07/25/19 13:15 07/26/19 08:17 Saline 0.9% IV Not Given .Q24H DAVEY Ceftriaxone Sodium 1 gm/ 50 mls @ 100 mls/hr 07/26/19 00:00 07/25/19 23:48 Sodium Chloride IVPB 100 mls/hr Q24H DAVEY Administration Metoprolol Tartrate 25 mg 07/26/19 09:00 07/26/19 08:27 Lopressor PO 25 mg BID DAVEY Administration Timolol Maleate 1 drops 07/26/19 21:00 Timoptic BOTH EYES HS [facility] Objective - Vital Signs Vital signs: Vital Signs Temp 97.9 F 07/26/19 08:00 Pulse 74 07/26/19 08:00 Resp 18 07/26/19 11:23 BP 156/71 07/26/19 08:00 Pulse Ox 97 07/26/19 08:05 Intake & Output 07/25/19 07/26/19 07/26/19 18:59 06:59 18:59 Intake Total 240 Balance 240 Weight 79.379 kg 83.8 kg Intake: Oral 240 - Exam GENERAL: The patient is alert and oriented x3, not in any acute distress. Well developed, well nourished. HEENT: Pupils are round and equally reacting to light. EOMI. No scleral icterus. No conjunctival pallor. Normocephalic, atraumatic. No pharyngeal erythema. No thyromegaly. CARDIOVASCULAR: S1 and S2 present. No murmurs, rubs, or gallops. PULMONARY: Chest is clear to auscultation, no wheezing or crackles. ABDOMEN: Soft, nontender, nondistended, normoactive bowel sounds. No palpable organomegaly. MUSCULOSKELETAL: No joint swelling or deformity. EXTREMITIES: No cyanosis, clubbing, or pedal edema. NEUROLOGICAL: Gross neurological examination did not reveal any focal deficits. SKIN: No rashes. no petechiae. - Labs CBC & Chem 7: 07/26/19 06:18 07/26/19 06:18 Labs: Abnormal Lab Results - Last 24 Hours (Table) 07/26/19 Range/Units 06:18 Cholesterol 251 H (<200) mg/dL LDL Cholesterol, Calc 175 H (0-99) mg/dL Assessment and Plan Assessment: slurred speech,possible TIA possible UTI Hypertension, uncontrolled on admission History of CVA/TIA Hyperlipidemia Hypothyroidism History of glaucoma Plan: this is a pleasant 53 years old female who presents with possible TIA and UTI. Continue with neuro check. Neuro consult. c/w aspirin, start rocephin and f/u UC. Continue with neuro workup as above including MRI/A, carotid duplex and echo Labs and medication were reviewed.. Continue same treatment. Continue with symptomatic treatment. Resume home medication. Monitor lytes and vitals. DVT and GI prophylaxis. Further recommendations of the clinical course of the patient DVT prophylaxis: Subcutaneous heparin GI Prophylaxis: Pepcid PT/OT: Pending Prognosis is guarded
--- NOTE | 2019-07-26 11:56 | MR ---
EXAMINATION TYPE: MR angio head wo con DATE OF EXAM: 07/26/2019 COMPARISON: CT brain from yesterday. HISTORY: CVA , Slurred speech TECHNIQUE: Time of flight images focusing on the [place] were performed without contrast.. 2-D and 3-D postprocessing imaging is performed on independent workstation and reviewed. FINDINGS: There is dominant left vertebral artery. Vertebral arteries are patent to the basilar junct ion. There is no significant focal stenosis or aneurysmal change in the posterior circulation. There is patent right posterior communicating artery. There is hypoplastic left posterior communicating art marco a. Images of the anterior circulation show poor visualization of patent anterior communicating artery. T here is no significant focal stenosis or aneurysmal change identified. IMPRESSION: No aneurysmal change at level of the [place].
--- NOTE | 2019-07-26 12:06 | ECHOF ---
Referral Reason:CVA MEASUREMENTS -------- HEIGHT: 162.6 cm WEIGHT: 83.5 kg BP: RVIDd: 2.5 cm (< 3.3) IVSd: 0.7 cm (0.6 - 1.1) LVIDd: 4.0 cm (3.9 - 5.3) LVPWd: 1.1 cm (0.6 - 1.1) IVSs: 1.4 cm LVIDs: 1.8 cm LVPWs: 1.8 cm LAESV Index (A-L): 15.98 ml/m Ao Diam: 2.8 cm (2.0 - 3.7) AV Cusp: 1.4 cm (1.5 - 2.6) LA Diam: 3.5 cm (2.7 - 3.8) MV EXCURSION: 10.412 mm (> 18.000) MV EF SLOPE: 26 mm/s (70 - 150) EPSS: 0.9 cm MV E Cassisu: 0.82 m/s MV DecT: 267 ms MV A Cassius: 1.54 m/s MV E/A Ratio: 0.53 RAP: 5.00 mmHg RVSP: 14.21 mmHg FINDINGS -------- Sinus rhythm. This was a technically adequate study. The left ventricular size is normal. Left ventricular wall thickness is normal. Overall left vent ricular systolic function is normal with, an EF between 55 - 60 %. The right ventricle is normal in size. Normal LA size by volume 22+/-6 ml/m2. The right atrial size is normal. No evidence of interatrial communication by color flow doppler analysis. The aortic valve is trileaflet, and appears structurally normal. No aortic stenosis or regurgitation. The mitral valve is normal. Mild mitral regurgitation is present. The tricuspid valve appears structurally normal. Mild tricuspid regurgitation present. Right vent ricular systolic pressure is normal at < 35 mmHg. There is no pulmonic regurgitation present. The aortic root size is normal. Normal inferior vena cava with normal inspiratory collapse consistent with estimated right atrial pre ssure of 5 mmHg. There is no pericardial effusion. CONCLUSIONS -------- 1. Sinus rhythm. 2. This was a technically adequate study. 3. The left ventricular size is normal. 4. Left ventricular wall thickness is normal. 5. Overall left ventricular systolic function is normal with, an EF between 55 - 60 %. 6. Normal LA size by volume 22+/-6 ml/m2. 7. The aortic valve is trileaflet, and appears structurally normal. No aortic stenosis or regurgitati on. 8. The mitral valve is normal. 9. Mild mitral regurgitation is present. 10. Mild tricuspid regurgitation present. 11. Right ventricular systolic pressure is normal at < 35 mmHg. 12. There is no pulmonic regurgitation present. 13. The aortic root size is normal. 14. Normal inferior vena cava with normal inspiratory collapse consistent with estimated right atrial pressure of 5 mmHg. 15. There is no pericardial effusion. COMMERCIAL LITIGATION ATTORNEY: Alice Gaines RDCS
--- NOTE | 2019-07-26 12:16 | MR ---
EXAMINATION TYPE: MR brain wo con DATE OF EXAM: 07/26/2019 COMPARISON: MRI brain January 16, 2014. Outside CT brain from yesterday. HISTORY: CVA , Slurred speech TECHNIQUE: Multiplanar, multisequence imaging of the brain and brainstem is performed without IV cont rast. FINDINGS: Diffusion weighted images demonstrate roughly 2.2 x 1.0 cm area left coronal radiata of increased sig nal on diffusion-weighted images with diminished signal on ADC mapping that shows T1 hypointensity an d T2 hyperintensity consistent with evolving acute infarct. This area correlates to the area of low d ensity on CT axial image 17. There is diffuse ventricular and sulcal prominence. There are scattered foci of T2 hyperintensity see n throughout the white matter bilaterally. Some progression of both findings are present from 2014 st [facility]. New area of involvement from 2014 MRI right nydia noted with low T1 signal consistent with old la cunar infarct sagittal image 11 and axial image 10. Slightly more prominent CSF over anterior left te mporal lobe unchanged from prior MRI could reflect asymmetric atrophy or small arachnoid cyst. Midline structures demonstrate normal morphology. The craniocervical junction appears within normal limits. Normal vascular flow voids are present. The visualized sinuses are clear and the globes are i ntact. IMPRESSION: 1. Evolving acute 2.2 x 1.0 cm infarct left coronal radiata posterior frontal lobe level. 2. Background of [id number]-ie-[id number] diffuse cerebral atrophy and moderate to advanced chronic small ve ssel ischemic changes with progression from 2014 MRI noted.
--- NOTE | 2019-07-26 13:58 | US ---
EXAMINATION TYPE: US carotid duplex BILAT DATE OF EXAM: 07/26/2019 COMPARISON: NONE CLINICAL HISTORY: CVA. EXAM MEASUREMENTS: RIGHT: Peak Systolic Velocity (PSV) cm/sec ----- Right CCA: 51.0 ----- Right ICA: 55.9 ----- Right ECA: 95.2 ICA/CCA ratio: 1.1 RIGHT: End Diastole cm/sec ----- Right CCA: 6.8 ----- Right ICA: 14.0 ----- Right ECA: 0.0 LEFT: Peak Systolic Velocity (PSV) cm/sec ----- Left CCA: 53.7 ----- Left ICA: 59.5 ----- Left ECA: 87.5 ICA/CCA ratio: 1.1 LEFT: End Diastole cm/sec ----- Left CCA: 9.2 ----- Left ICA: 16.8 ----- Left ECA: 0.0 VERTEBRALS (direction of flow): Right Vertebral: Antegrade Left Vertebral: Antegrade Rhythm: Normal Gunderson scale images show mild to moderate peripheral plaque at carotid bulb level bilaterally. Velocity measurements and ratios remain within normal limits and visualized portion of both internal carotid arteries. IMPRESSION: No hemodynamically significant stenosis is seen in either internal carotid artery. Criteria for Assigning % of Stenosis / Diameter reduction (Estimation based on the indirect measurements of the internal carotid artery velocities (ICA PSV). 1. Normal (no stenosis)=ICA PSV < 125 cm/s: ratio < 2.0: ICA EDV<40 cm/s. 2. Less than 50% stenosis=ICA PSV < 125 cm/s: ratio < 2.0: ICA EDV<40 cm/s. 3. 50 to 69% stenosis=ICA PSV of 125 to 230 cm/s: ration 2.0 ? 4.0: ICA EDV 40-100 cm/s. 4. Greater than 70% stenosis to near occlusion= ICA PSV > 230 cm/s: ratio > 4.0: ICA EDV > 100 cm/s. 5. Near occlusion= ICA PSV velocities may be low or undetectable: variable ratio and ICA EDV. 6. Total occlusion=unable to detect flow.
[2019-07-26 17:52] LABS: Hemoglobin A1C 5.4 % (4.0-6.0)
[2019-07-26] MEDS: METOPROLOL TARTRATE 25 MG TAB PO SCH (20:19)
[2019-07-26] MEDS ORDERED: TIMOLOL 0.5% OPHTH DROPS 5 ML BTL BOTH EYES SCH (21:00)
[2019-07-26] MEDS ORDERED: ATORVASTATIN 20 MG TAB PO SCH (21:00)
[2019-07-27 06:41] LABS: Calcium 9.3 mg/dL (8.4-10.2)
[2019-07-27 06:54] LABS: Basophils # (A) 0.1 k/uL (0-0.2); Basophils % (A) 1 %; Eosinophils # (A) 0.4 k/uL (0-0.7); Eosinophils % (A) 6 %; HCT 40.1 % (34.0-46.0); HGB 13.7 gm/dL (11.4-16.0); Lymphocytes # (A) 2.1 k/uL (1.0-4.8); Lymphocytes % (A) 28 %; MCH 28.8 pg (25.0-35.0); MCHC 34.1 g/dL (31.0-37.0); MCV 84.4 fL (80.0-100.0); Mean Platelet Volume 8.5; Monocytes # (A) 0.6 k/uL (0-1.0); Monocytes % (A) 8 %; Neutrophils # (A) 4.1 k/uL (1.3-7.7); Neutrophils % (A) 56 %; Platelet Count 329 k/uL (150-450); RBC 4.76 m/uL (3.80-5.40); RDW 13.3 % (11.5-15.5); WBC 7.4 k/uL (3.8-10.6)
[2019-07-27] MEDS: ASPIRIN 81 MG PO SCH (08:51)
[2019-07-27] MEDS: CYANOCOBALAMIN 500 MCG TAB PO SCH (08:51)
[2019-07-27] MEDS: amLODIPine 10 MG TAB PO SCH (08:51)
[2019-07-27] MEDS: METOPROLOL TARTRATE 25 MG TAB PO SCH (08:51)
[2019-07-27 09:01] VITALS: RESP 16
--- NOTE | 2019-07-27 10:59 | P.PN ---
Subjective Progress Note Date: 07/27/19 Patient states she is doing better. No further neurological deficits. No new neurological symptoms. Denies headache. Objective - Vital Signs Vital signs: Vital Signs Temp 97.7 F 07/27/19 08:30 Pulse 83 07/27/19 08:30 Resp 16 07/27/19 08:30 BP 142/99 07/27/19 08:30 Pulse Ox 95 07/27/19 08:30 Intake & Output 07/26/19 07/27/19 07/27/19 18:59 06:59 18:59 Intake Total 360 210 Balance 360 210 Weight 79.2 kg Intake: IV 10 Invasive Line 2 10 Oral 360 200 - Exam On examination patient is alert and awake. Her speech is mildly dysarthric, b allyn than yesterday. On cranial nerve examination, pupils are round and reacting, visual sanders are full, face is symmetric and tongue protrudes the midline. On muscle strength testing patient has right pronation no drift. The strength is normal in arms and legs distally and proximally. Sensations are equal. No neglect. No ataxia. Tone and bulk of muscles normal. Patient states she has been walking to the bathroom feels very steady. - Labs CBC & Chem 7: 07/27/19 05:37 07/27/19 05:37 Assessment and Plan Assessment: * Acute ischemic stroke with mild to moderate dysarthria and very subtle right facial brachial weakness. Stroke possible due to small vessel disease. Need to rule out embolic source. * Hypertension * Hyperlipidemia * Previous history of TIA 7 years ago. Plan: * MRI of the brain revealed evolving acute 2.2 x 1.0 cm infarct left baltazar radiate a posterior frontal lobe level. Background of mild to moderate diffuse cerebral atrophy and moderate to advanced chronic small vessel ischemic changes with progression from [address] her on DAP aspirin 81 mg and Plavix 75 mg daily for 3 weeks, thereafter patient can stay on monotherapy with aspirin. * MRA of the head was normal. * Carotid Doppler showed mild to moderate plaque bilaterally with no h emodynamically significant stenosis. t * 2-D echo showed EF 55-60%. Left atrial size is normal. * Hemoglobin A1c 5.4. Lipid panel showed cholesterol 251, LDL 175, HDL 54 and triglycerides 111. Continue Lipitor 20 mg daily. * Permissible hypertension for 24-48 hours post stroke. Patient already has passed through this stage, as the stroke actually happened on Thursday, 4 days prior to arrival to this hospital. However I would still be very cautious in controlling blood pressure aggressively. Suggest keep her on home blood pressure medications, and may start treating blood pressure more aggressively as an outpatient. Patient wants to go home. * Telemetry monitoring showing no arrhythmia. * Speech therapy. * PT OT evaluate for home safety for discharge.
[2019-07-27] MEDS ORDERED: CLOPIDOGREL 75 MG TAB PO SCH (11:00)
[2019-07-27 11:37] VITALS: BP 142/65; PULSE 61; TEMP 98.2
--- NOTE | 2019-07-27 11:49 | P.DS ---
Providers Date of admission: 07/25/19 13:08 Attending physician: Arnulfo Rao Consults: 07/25/19 13:09 Consult Physician Routine Consulting Provider: Michael Mujica Consult Reason/Comments: cva Do you want consulting provider notified?: Yes Primary care physician: Karo Goel Hospital Course: Diagnoses: slurred speech, secondary to acute stroke.MRI of the brain revealed evolving acute 2.2 x 1.0 cm infarct left baltazar radiate a posterior frontal lobe level. Her slurred speech is improving upon discharge possible UTI Hypertension, uncontrolled on admission History of CVA/TIA Hyperlipidemia Hypothyroidism History of glaucoma Hospital course: this is a pleasant 83 years old female with past medical history of CVA/TIA, hyperlipidemia, hypertension, hypothyroidism, glaucoma. Patient lives with daughter and family at her place. She presents with 3-4 days history of slurred speech with no other symptoms. she denies headache, no blurred vision, no weakness or numbness or abnormal sensation.pt first presents to [facility] and was transferred to [facility] for neurological service evaluation which is not available currently at [facility]. CT of brain: no acute process, mild cerebral atrophy as per radiologist, MRI of the brain revealed evolving acute 2.2 x 1.0 cm infarct left baltazar radiate a posterior frontal lobe level. Background of mild to moderate diffuse cerebral atrophy and moderate to advanced chronic small vessel ischemic changes with progression from 2014 MRI. MRA of the head was normal, Carotid Doppler was negative, 2-D echo showed EF 55- 60%. Telemetry showing no arrhythmia. Left atrial size is normal.Hemoglobin A1c 5.4. Lipid panel showed cholesterol 251, LDL 175, HDL 54 and triglycerides 111. Continue Lipitor 20 mg daily. Neurologist recommended to continue with aspirin 81 mg daily plus Plavix 75 mg daily (Plavix would be for 3 weeks only).. Also recommended permissive hypertension and blood pressure control as an outpatient. We will continue patient home medication of Norvasc 10 mg howeve we will switch her hydralazine 10 mg 3 times a day to metoprolol 25 mg twice a day (patient was on metoprolol 50 mg twice a day however it was lowered to 25 twice a day for permissive hypertension). UA is suspicious for UTI Patient has no or minimal urinary symptoms. She says she is has increased frequency of urination states this is at her baseline. We'll discharge him on short course of oral antibiotics. This morning patient denies other symptoms. She denies chest pain or dyspnea. No weakness or headache or abnormal sensation. No change in bowel habits. No nausea vomiting and she is tolerating diet well. Of note her slurred speech is improving every day as per family at bedside including today. No other neurological deficits. Patient was a eager to be discharged today on . Daughter at bedside she agrees with her and I discussed all the recommendation with them and they are agreeable. Daughter says she'll make sure she will make her follow-up with all extracted doctors as below. Patient was cleared by neurologist for discharge Problems and management plan were discussed with the patient and he verbalized u nderstanding and acceptance Patient was found stable and can be discharged home however he needs follow-up as an outpatient. Patient was instructed to follow up with PCP within one week and patient agrees. Patient was instructed to follow up with the neurologist in 1 week if possible, and with table machine operator in 1 week if possible for echo cardiogram with bubble study and patient and daughter at bedside agree. Patient and family are aware today is and appointment is could not be made for the patient and they're willing to make her own appointment Gen: patient is a AAOx3, no distress CVS: S1-S2, RRR, no murmur Lungs: B/L CTA, no wheezing Abdomen: soft, no distention, no tenderness, positive bowel sounds Extremity: no leg edema or induration -Neuro: Slurred speech significantly improving. Risks of cranial nerves are grossly intact. Motor strength is 5/5 and sensation is intact Time spent more than 35 minutes Patient Condition at Discharge: Fair Plan - Discharge Summary Discharge Rx Participant: Yes New Discharge Prescriptions: No Action amLODIPine [Norvasc] 10 mg PO DAILY hydrALAZINE HCL [Apresoline] 10 mg PO TID Timolol 0.5% Ophth Gel Forming [Timoptic-Xe] 1 drop BOTH EYES HS guaiFENesin-Coden 100-10MG/5ML [Robitussin AC] 5 - 10 ml PO Q4H PRN PRN Reason: Cough Cyanocobalamin (Vitamin B-12) [Vitamin B-12] 1,000 mcg PO DAILY Cephalexin [Keflex] 500 mg PO TID Discharge Medication List amLODIPine [Norvasc] 10 mg PO DAILY 05/18/18 [History] Cyanocobalamin (Vitamin B-12) [Vitamin B-12] 1,000 mcg PO DAILY 07/25/19 [History] Timolol 0.5% Ophth Gel Forming [Timoptic-Xe] 1 drop BOTH EYES HS 07/25/19 [History] Aspirin 81 mg PO DAILY #30 chew 07/27/19 [Rx] Atorvastatin [Lipitor] 20 mg PO HS #30 tab 07/27/19 [Rx] Cefuroxime Axetil [Ceftin] 500 mg PO BID 2 Days #4 tab 07/27/19 [Rx] Clopidogrel [Plavix] 75 mg PO DAILY 21 Days #21 tab 07/27/19 [Rx] Metoprolol Tartrate [Lopressor] 25 mg PO BID #60 tab 07/27/19 [Rx] Follow up Appointment(s)/Referral(s): Karo Goel MD [Primary Care Provider] - 1-2 days Mikel Champion MD [STAFF PHYSICIAN] - 1 Week (Office closed. Please call to make appointment.) Alli Reyes DO [STAFF PHYSICIAN] - 1 Week (Office closed - please call to make appointment) Activity/Diet/Wound Care/Special Instructions: [facility] Speech Therapy: #[phone].
[2019-07-27] MEDS: SODIUM CHLORIDE 0.9% 1,000 ML IV SCH (13:30)
[2019-07-27] MEDS ORDERED: METOPROLOL TARTRATE 25 MG TAB PO SCH (21:00)
== END 2019-07-27 14:35 | disposition home or self-care (01) | DRG 65 ==
LOC: EC 12:25 → 3SCARD 13:08
PROVIDERS: ADMIT Internal Medicine; ATTEND Internal Medicine
DX: I63.89 Other cerebral infarction (principal); N39.0 Urinary tract infection, site not specified; I10 Essential (primary) hypertension; E78.5 Hyperlipidemia, unspecified; R29.810 Facial weakness; E03.9 Hypothyroidism, unspecified; H40.9 Unspecified glaucoma; H91.90 Unspecified hearing loss, unspecified ear; R47.1 Dysarthria and anarthria; R53.1 Weakness; R29.701 NIHSS score 1; R40.2143 Coma scale, eyes open, spontaneous, at hospital admission; M19.90 Unspecified osteoarthritis, unspecified site; I25.2 Old myocardial infarction; Z96.612 Presence of left artificial shoulder joint; Z96.642 Presence of left artificial hip joint; Z96.611 Presence of right artificial shoulder joint; Z96.1 Presence of intraocular lens; Z88.6 Allergy status to analgesic agent; Z88.8 Allergy status to other drugs, medicaments and biological substances; Z79.52 Long term (current) use of systemic steroids; Z79.82 Long term (current) use of aspirin; Z79.84 Long term (current) use of oral hypoglycemic drugs; Z79.899 Other long term (current) drug therapy; Z98.42 Cataract extraction status, left eye; Z98.41 Cataract extraction status, right eye; Z90.49 Acquired absence of other specified parts of digestive tract; Z80.9 Family history of malignant neoplasm, unspecified
CPT/HCPCS: 70544; 70551; 80048; 80061; 83036; 85025; 93306; 93880; 94760; 99285

== ENCOUNTER → 2020-10-22 | Outpatient (CLI) | payer MEDICARE, OTHER ==
--- NOTE | 2020-10-22 15:00 | US ---
EXAMINATION TYPE: US carotid duplex BILAT DATE OF EXAM: 10/22/2020 COMPARISON: CLINICAL HISTORY: Hx cerebral vascular accident Z86.73. stroke x 1 year ago. No HTN. EXAM MEASUREMENTS: RIGHT: Peak Systolic Velocity (PSV) cm/sec ----- Right CCA: 57.5 ----- Right ICA: 53.1 ----- Right ECA: 84.5 ICA/CCA ratio: 0.9 RIGHT: End Diastole cm/sec ----- Right CCA: 8.6 ----- Right ICA: 0.0 ----- Right ECA: 0.0 LEFT: Peak Systolic Velocity (PSV) cm/sec ----- Left CCA: 62.7 ----- Left ICA: 99.5 ----- Left ECA: 86.6 ICA/CCA ratio: 1.6 LEFT: End Diastole cm/sec ----- Left CCA: 8.6 ----- Left ICA: 16.7 ----- Left ECA: 6.6 VERTEBRALS (direction of flow): Right Vertebral: Antegrade Left Vertebral: Antegrade Rhythm: Arrhythmia Plaque visualized. Bilateral wall thickening. No elevated velocities. No significant stenosis. IMPRESSION: No evidence for hemodynamically significant stenosis. Criteria for Assigning % of Stenosis / Diameter reduction (Estimation based on the indirect measurements of the internal carotid artery velocities (ICA PSV). 1. Normal (no stenosis)=ICA PSV < 125 cm/s: ratio < 2.0: ICA EDV<40 cm/s. 2. Less than 50% stenosis=ICA PSV < 125 cm/s: ratio < 2.0: ICA EDV<40 cm/s. 3. 50 to 69% stenosis=ICA PSV of 125 to 230 cm/s: ration 2.0 ? 4.0: ICA EDV 40-100 cm/s. 4. Greater than 70% stenosis to near occlusion= ICA PSV > 230 cm/s: ratio > 4.0: ICA EDV > 100 cm/s. 5. Near occlusion= ICA PSV velocities may be low or undetectable: variable ratio and ICA EDV. 6. Total occlusion=unable to detect flow.
== END | disposition home or self-care (01) ==
LOC: RADUSWWP 14:07
PROVIDERS: ATTEND Psychiatry & Neurology Neurology
DX: Z86.73 Personal history of transient ischemic attack (TIA), and cerebral infarction without residual deficits (principal)
CPT/HCPCS: 93880

== ENCOUNTER → 2020-10-22 | Outpatient (CLI) | payer MEDICARE, OTHER ==
--- NOTE | 2020-10-22 14:13 | MR ---
EXAMINATION TYPE: MR brain wo con DATE OF EXAM: 10/22/2020 COMPARISON: 07/26/2019 HISTORY: Memory loss, stroke, hearing loss bilateral CONTRAST: Performed utilizing 0 mL intravenous Gadavist gadolinium contrast. TECHNIQUE: Multiplanar, multiecho imaging on a 3.0 Asha magnet is performed through the brain. Stud y is performed within 24 hours of arrival to the hospital. The craniovertebral junction is normal. The pituitary is normal. Diffusion-weighted imaging is performed. No abnormal hyperintensity is present to suggest an acute i ntracranial infarct or acute ischemic change. There is fairly extensive white matter changes through the periventricular white matter. The findings are nonspecific, likely related to chronic white matter ischemic changes. Other etiologies including multiple sclerosis, vasculitis could be considered. There is likely an old lacunar infarct in the left baltazar radiata. Ventricles and sulci are slightly prominent for the patient age. IMPRESSIONS: 1. Atrophy with moderately extensive periventricular white matter ischemic type changes. 2. No acute ischemic changes evident. 3. Probable old lacunar infarct left baltazar radiata.
== END ==
LOC: RADMRIMAIN 12:29
PROVIDERS: ATTEND Psychiatry & Neurology Neurology
DX: I67.82 Cerebral ischemia (principal); Z86.73 Personal history of transient ischemic attack (TIA), and cerebral infarction without residual deficits
CPT/HCPCS: 70551

== ENCOUNTER 2021-06-25 16:04 | Inpatient (IN) | payer MEDICARE, OTHER ==
[2021-06-25] MEDS ORDERED: ACETAMINOPHEN TAB 325 MG TAB PO STA (17:54)
--- NOTE | 2021-06-25 17:56 | XR ---
EXAMINATION TYPE: XR chest 2V DATE OF EXAM: 06/25/2021 COMPARISON: 07/25/2017 HISTORY: Short of breath TECHNIQUE: Single view FINDINGS: There is diffuse airspace infiltrate throughout both lungs. Heart size is normal. Thoracic aorta is atheromatous. 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 IMPRESSION: Bilateral diffuse airspace pneumonia is new compared to old exam. Normal heart.
[2021-06-25 18:35] LABS: Basophils # (A) 0.1 k/uL (0-0.2); Basophils % (A) 1 %; Eosinophils % (A) 0 %; HCT 46.2 % (34.0-46.0); HGB 15.7 gm/dL (11.4-16.0); Lymphocytes # (A) 0.9 k/uL (1.0-4.8); Lymphocytes % (A) 6 %; MCH 29.4 pg (25.0-35.0); MCV 86.3 fL (80.0-100.0); Mean Platelet Volume 8.7; Monocytes # (A) 0.9 k/uL (0-1.0); Monocytes % (A) 6 %; Neutrophils # (A) 12.5 k/uL (1.3-7.7); Neutrophils % (A) 85 %; Platelet Count 405 k/uL (150-450); RBC 5.35 m/uL (3.80-5.40); RDW 13.1 % (11.5-15.5); WBC 14.7 k/uL (3.8-10.6)
--- NOTE | 2021-06-25 18:44 | XR ---
EXAMINATION TYPE: XR chest 1V portable DATE OF EXAM: 06/25/2021 COMPARISON: 06/25/2020 HISTORY: Short of breath TECHNIQUE: Single view FINDINGS: There is bilateral moderate patchy predominantly interstitial pneumonia. Heart size is norm al. Thoracic aorta is atheromatous. 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 IMPRESSION: Bilateral pneumonia slightly worse than exam one hour ago.
[2021-06-25 18:58] LABS: Albumin 3.5 g/dL (3.5-5.0); C Reactive Protein 5.8 mg/dL (<1.0); Calcium 8.8 mg/dL (8.4-10.2); Total Bilirubin 1.2 mg/dL (0.2-1.3)
[2021-06-25 19:05] LABS: Partial Thromboplastin Time 20.5 sec (22.0-30.0); Prothrombin Time 10.4 sec (9.0-12.0)
[2021-06-25 19:15] LABS: Potassium 4.8 mmol/L (3.5-5.1)
--- NOTE | 2021-06-25 19:45 | ED ---
General Adult HPI - General Chief complaint: Shortness of Breath Stated complaint: Covid+,LILIANE Time Seen by Provider: 06/25/21 17:36 Source: patient, family, RN notes reviewed, old records reviewed Mode of arrival: wheelchair Limitations: no limitations - History of Present Illness Initial comments: I evaluated the patient when she was placed in a room. Patient is a 85-year-old female with past medical history remarkable for prior CVA, TIA, thyroid di sorder, hypertension who presents emergency Department complaining of being Covid positive and having worsening shortness of breath. They have attempted to treat it at home with steroids but had minimal improvement. Patient tested positive for Covid last week. Patient is having worsening shortness of breath over that time. They brought her to the emergency department for further evaluation. She does endorse a nonproductive cough. Denies any abdominal pain, nausea, vomiting. He endorses lack of appetite. Endorses fatigue. She was not vaccinated. Patient presents for evaluation for Covid positive and worsening symptoms. - Related Data Home Medications Medication Instructions Recorded Confirmed Benzonatate [Tessalon Perles] 100 mg PO TID PRN 06/25/21 06/25/21 Zolpidem Tartrate [Ambien] 10 mg PO HS 06/25/21 06/25/21 hydrALAZINE HCL 10 mg PO TID 06/25/21 06/25/21 Allergies Allergy/AdvReac Type Severity Reaction Status Date / Time alcohol Allergy Nausea & Verified 06/25/21 18:27 Vomiting hydrocodone [From Vicodin] Allergy Itching Verified 06/25/21 18:27 tramadol [From Ultram] Allergy Unknown Verified 06/25/21 18:27 Review of Systems ROS Statement: Those systems with pertinent positive or pertinent negative responses have been documented in the HPI. Review of Systems: CONST: Endorses fatigue EYES: Denies blurry vision ENT: Denies nasal congestion C/V: Denies Chest pain RESP: Endorses shortness of breath GI: Denies abdominal pain : Denies dysuria SKIN: Denies rash. MSK: Denies joint pain. NEURO: Denies headache ROS Other: All systems not noted in ROS Statement are negative. Past Medical History Past Medical History: CVA/TIA, Eye Disorder, Hearing Disorder / Deafness, Hyperlipidemia, Hypertension, Osteoarthritis (OA), Thyroid Disorder Additional Past Medical History / Comment(s): GLAUCOMA. 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 History of Any Multi-Drug Resistant Organisms: None Reported Past Surgical History: Appendectomy, Joint Replacement Additional Past Surgical History / Comment(s): BILATERAL SHOULDER ARTHROPLASTY. BILATERAL CATARACTS W/ LENS IMPLANTS. TOTAL LT HIP. Past Anesthesia/Blood Transfusion Reactions: No Reported Reaction Past Psychological History: No Psychological Hx Reported Smoking Status: Never smoker Past Alcohol Use History: None Reported Past Drug Use History: None Reported - Past Family History Father Family Medical History: Cancer General Exam - General Exam Comments Initial Comments: General: Appears in no acute distress. HEAD: Normal with no signs of head trauma. EYES: PERRLA, EOMI, conjunctiva normal, no discharge. ENT: Hearing grossly intact, normal oropharynx. RESPIRATORY: Patient is hypoxic on room air. Coarse breath sounds bilaterally. C/V: Mildly tachycardic with a regular rhythm. S1 and S2 auscultated. Carol pheral pulses are 2+ and intact throughout. ABD: Abd is soft, nontender, nondistended EXT: Normal range of motion, no obvious deformity SKIN: No rashes or lesions observed on exposed skin. NEURO: Alert and oriented 4. No focal deficits. Limitations: no limitations Course Vital Signs 06/25/21 06/25/21 06/25/21 17:12 17:54 19:27 Temperature 98.5 F Pulse Rate 108 H 90 94 Respiratory 19 20 20 Rate Blood Pressure 119/65 133/76 148/86 O2 Sat by Pulse 86 L 90 L 94 L Oximetry 06/25/21 21:39 Temperature Pulse Rate 86 Respiratory 20 Rate Blood Pressure 131/81 O2 Sat by Pulse 92 L Oximetry Medical Decision Making - Medical Decision Making Based on the patient's presentation and physical exam, I do believe she is COVID-19 positive and is not hypoxic. Patient will require admission hospital. We will obtain Covid 19 laboratory studies. She was immediately placed on nasal cannula and eventually upgraded type flow nasal cannula. Oxygen saturations following this are improved into the low 90%'s. Breathing treatments and steroids were ordered for the patient. This includes Decadron twice a day 6 mg. We will obtain Covid labs and she will be connected to continuous cardiac monitoring. Patient and family were in agreement with this plan. EKG shows no signs of acute ischemia. Chest x-ray reveals I lateral pneumonia secondary to COVID-19. Laboratory studies are remarkable for a leukocytosis of 14. D-dimer is mildly elevated to 0.82, however this is within normal range with age adjustment. Sodium is mildly decreased to 133. Troponin is indeterminate. LDH is 1100. CRP is 5.8. Covid is positive. On reevaluation, I updated patient as well as family members that patient will be admitted to the hospital. She'll be started on Lovenox in addition to 2 breathing treatments and steroids described above. Infectious disease as well as pulmonology was consulted. Patient will be admitted to telemetry bed. I spoke with the admitting physician, BILLY Boss of [facility] who accepted the patient. Patient was admitted in serious condition to telemetry bed. - Lab Data Result diagrams: 06/25/21 18:20 06/25/21 18:20 Lab Results 06/25/21 06/25/21 06/25/21 Range/Units 18:20 18:20 18:20 WBC 14.7 H (3.8-10.6) k/uL RBC 5.35 (3.80-5.40) m/uL Hgb 15.7 (11.4-16.0) gm/dL Hct 46.2 H (34.0-46.0) % MCV 86.3 (80.0-100.0) fL MCH 29.4 (25.0-35.0) pg MCHC 34.0 (31.0-37.0) g/dL RDW 13.1 (11.5-15.5) % Plt Count 405 (150-450) k/uL MPV 8.7 Neutrophils % 85 % Lymphocytes % 6 % Monocytes % 6 % Eosinophils % 0 % Basophils % 1 % Neutrophils # 12.5 H (1.3-7.7) k/uL Lymphocytes # 0.9 L (1.0-4.8) k/uL Monocytes # 0.9 (0-1.0) k/uL Eosinophils # 0.0 (0-0.7) k/uL Basophils # 0.1 (0-0.2) k/uL PT 10.4 (9.0-12.0) sec INR 1.0 (<1.2) APTT 20.5 L (22.0-30.0) sec D-Dimer 0.82 H (<0.60) mg/L FEU Sodium 133 L (137-145) mmol/L Potassium 4.8 (3.5-5.1) mmol/L Chloride 100 (98-107) mmol/L Carbon Dioxide 23 (22-30) mmol/L Anion Gap 10 mmol/L BUN 26 H (7-17) mg/dL Creatinine 1.08 H (0.52-1.04) mg/dL Est GFR (CKD-EPI)AfAm 54 (>60 ml/min/1.73 sqM) Est GFR (CKD-EPI)NonAf 47 (>60 ml/min/1.73 sqM) Glucose 131 H (74-99) mg/dL Plasma Lactic Acid [place] (0.7-2.0) mmol/L Calcium 8.8 (8.4-10.2) mg/dL Magnesium 2.0 (1.6-2.3) mg/dL Total Bilirubin 1.2 (0.2-1.3) mg/dL AST 42 H (14-36) U/L ALT 25 (4-34) U/L Alkaline Phosphatase 85 (38-126) U/L Lactate Dehydrogenase 1120 H (313-618) U/L Troponin I (0.000-0.034) ng/mL C-Reactive Protein 5.8 H (<1.0) mg/dL Total Protein 7.0 (6.3-8.2) g/dL Albumin 3.5 (3.5-5.0) g/dL Coronavirus (PCR) (Not Detectd) 06/25/21 06/25/21 06/25/21 Range/Units 18:20 18:20 18:56 WBC (3.8-10.6) k/uL RBC (3.80-5.40) m/uL Hgb (11.4-16.0) gm/dL Hct (34.0-46.0) % MCV (80.0-100.0) fL MCH (25.0-35.0) pg MCHC (31.0-37.0) g/dL RDW (11.5-15.5) % Plt Count (150-450) k/uL MPV Neutrophils % % Lymphocytes % % Monocytes % % Eosinophils % % Basophils % % Neutrophils # (1.3-7.7) k/uL Lymphocytes # (1.0-4.8) k/uL Monocytes # (0-1.0) k/uL Eosinophils # (0-0.7) k/uL Basophils # (0-0.2) k/uL PT (9.0-12.0) sec INR (<1.2) APTT (22.0-30.0) sec D-Dimer (<0.60) mg/L FEU Sodium (137-145) mmol/L Potassium (3.5-5.1) mmol/L Chloride (98-107) mmol/L Carbon Dioxide (22-30) mmol/L Anion Gap mmol/L BUN (7-17) mg/dL Creatinine (0.52-1.04) mg/dL Est GFR (CKD-EPI)AfAm (>60 ml/min/1.73 sqM) Est GFR (CKD-EPI)NonAf (>60 ml/min/1.73 sqM) Glucose (74-99) mg/dL Plasma Lactic Acid [place] 1.6 (0.7-2.0) mmol/L Calcium (8.4-10.2) mg/dL Magnesium (1.6-2.3) mg/dL Total Bilirubin (0.2-1.3) mg/dL AST (14-36) U/L ALT (4-34) U/L Alkaline Phosphatase (38-126) U/L Lactate Dehydrogenase (313-618) U/L Troponin I 0.034 (0.000-0.034) ng/mL C-Reactive Protein (<1.0) mg/dL Total Protein (6.3-8.2) g/dL Albumin (3.5-5.0) g/dL Coronavirus (PCR) Detected A (Not Detectd) - EKG Data -: EKG Interpreted by Me EKG Comments: 12-lead Electrocardiogram Interpretation Note EKG was reviewed and interpreted by myself. 12-lead ECG performed at 1754 is interpreted by me as revealing sinus tachycardia at a rate of 104 beats per minute. Left axis deviation. NC interval is 180 ms, QRS duration 70 ms, QTc is 439 ms.. There were no ST or T wave abnormalities to suggest myocardial ischemia or injury. R wave progression across the precordium was satisfactory. By my interpretation this EKG is non-diagnostic for acute ischemia. Disposition Clinical Impression: COVID-19, Acute respiratory failure with hypoxia, Pneumonia due to COVID-19 virus Disposition: ADMITTED IP TO THIS HOSP Condition: Serious
[2021-06-25] MEDS: ENOXAPARIN 40 MG/0.4 ML SYRINGE SQ SCH (21:37)
[2021-06-25] MEDS: DEXAMETHASONE SOD PHOSPHATE 10 MG/ML 1 ML VIAL IVP SCH (21:37)
[2021-06-26] MEDS: DEXAMETHASONE SOD PHOSPHATE 10 MG/ML 1 ML VIAL IVP SCH ×2 (00:13→11:39)
[2021-06-26] MEDS: hydrALAZINE HCL 10 MG TAB PO SCH ×4 (00:16→21:54)
[2021-06-26] MEDS: INSULIN ASPART (NovoLOG) 100 UNIT/ML VIAL SQ SCH ×5 (00:22→21:54)
[2021-06-26 00:23] LABS: Glucose,Whole Blood 111 mg/dL (75-99)
--- NOTE | 2021-06-26 09:21 | P.HPIM ---
History of Present Illness This is a pleasant 85 years old female with past medical history of CVA/TIA, Hearing Disorder, Hyperlipidemia, Hypertension, Osteoarthritis , hypothyroidism Patient presents because of worsening dyspnea and cough with no phlegm. No chest pain. Patient could not specify for how long she's been having these symptoms but states is been getting worse lately. Patient states that she was tested positive for Covid a week ago. No diarrhea or vomiting. No urinary symptoms. No headache or weakness. But patient looks very tired. Baseline she can walk by herself. Currently lying in bed feels generally weak. She was not vaccinated for Covid. She denies smoking, alcohol or illicit drugs Patient is saturating 91% on 5 L of oxygen via nasal cannula, afebrile. His labs showing leukocytosis 14.6 K. D-dimer is elevated at 0.82. INR is normal 1.0. Sodium 133, creatinine is slightly up at 1.08. Liver enzymes are unremarkable. Lactate dehydrogenase elevated at 1120 and C-reactive protein elevated 5.8. pro-calcitonin is negative at 0.06 Coronal virus detected EKG showing sinus tachycardia at [address]-T changes Chest x-ray: Bilateral pneumonia Review of Systems CONSTITUTIONAL: No fever, no malaise, no fatigue. HEENT: No recent visual problems or hearing problems. Denied any sore throat. CARDIOVASCULAR: No orthopnea, PND, no palpitations, no syncope. PULMONARY: No chest wall tenderness, no hemoptysis. GASTROINTESTINAL: No diarrhea, no nausea, no vomiting, no abdominal pain. Normoactive bowel sounds. NEUROLOGICAL: No headaches, no weakness, no numbness. HEMATOLOGICAL: Denies any bleeding or petechiae. GENITOURINARY: Denies any burning micturition, frequency, or urgency. MUSCULOSKELETAL/RHEUMATOLOGICAL: Denies any joint pain, swelling, or any muscle pain. ENDOCRINE: Denies any polyuria or polydipsia. Past Medical History Past Medical History: CVA/TIA, Eye Disorder, Hearing Disorder / Deafness, Hyperlipidemia, Hypertension, Osteoarthritis (OA), Thyroid Disorder Additional Past Medical History / Comment(s): GLAUCOMA. 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 History of Any Multi-Drug Resistant Organisms: None Reported Past Surgical History: Appendectomy, Joint Replacement Additional Past Surgical History / Comment(s): BILATERAL SHOULDER ARTHROPLASTY. BILATERAL CATARACTS W/ LENS IMPLANTS. TOTAL LT HIP. Past Anesthesia/Blood Transfusion Reactions: No Reported Reaction Past Psychological History: No Psychological Hx Reported Smoking Status: Never smoker Past Alcohol Use History: None Reported Past Drug Use History: None Reported - Past Family History Father Family Medical History: Cancer Medications and Allergies Home Medications Medication Instructions Recorded Confirmed Type Benzonatate [Tessalon Perles] 100 mg PO TID PRN 06/25/21 06/25/21 History Zolpidem Tartrate [Ambien] 10 mg PO HS 06/25/21 06/25/21 History hydrALAZINE HCL 10 mg PO TID 06/25/21 06/25/21 History Allergies Allergy/AdvReac Type Severity Reaction Status Date / Time alcohol Allergy Nausea & Verified 06/25/21 18:27 Vomiting hydrocodone [From Vicodin] Allergy Itching Verified 06/25/21 18:27 tramadol [From Ultram] Allergy Unknown Verified 06/25/21 18:27 Physical Exam Vitals: Vital Signs Temp Pulse Resp BP Pulse Ox 06/26/21 04:00 98.4 F 85 20 127/73 91 L 06/26/21 03:23 91 L 06/26/21 01:00 24 92 L 06/26/21 00:18 96.9 F L 85 20 126/78 92 L 06/25/21 21:39 86 20 131/81 92 L 06/25/21 19:27 94 20 148/86 94 L 06/25/21 17:54 90 20 133/76 90 L 06/25/21 17:12 98.5 F 108 H 19 119/65 86 L Intake and Output 06/25/21 06/26/21 06/26/21 22:59 06:59 14:59 Other: Weight 74.843 kg GENERAL: The patient is alert and oriented x3, not in any acute distress. Well developed, well nourished. HEENT: Pupils are round and equally reacting to light. EOMI. No scleral icterus. No conjunctival pallor. Normocephalic, atraumatic. No pharyngeal erythema. No thyromegaly. CARDIOVASCULAR: S1 and S2 present. No murmurs, rubs, or gallops. -PULMONARY: Chest is clear to auscultation, no wheezing or crackles. bilateral crepitation ABDOMEN: Soft, nontender, nondistended, normoactive bowel sounds. No palpable organomegaly. MUSCULOSKELETAL: No joint swelling or deformity. EXTREMITIES: No cyanosis, clubbing, or pedal edema. NEUROLOGICAL: Gross neurological examination did not reveal any focal deficits. SKIN: No rashes. No petechiae Results CBC & Chem 7: 06/25/21 18:20 06/25/21 18:20 Labs: Abnormal Lab Results - Last 24 Hours (Table) 06/25/21 06/25/21 06/25/21 Range/Units 18:20 18:20 18:20 WBC 14.7 H (3.8-10.6) k/uL Hct 46.2 H (34.0-46.0) % Neutrophils # 12.5 H (1.3-7.7) k/uL Lymphocytes # 0.9 L (1.0-4.8) k/uL APTT 20.5 L (22.0-30.0) sec D-Dimer 0.82 H (<0.60) mg/L FEU Sodium 133 L (137-145) mmol/L BUN 26 H (7-17) mg/dL Creatinine 1.08 H (0.52-1.04) mg/dL Glucose 131 H (74-99) mg/dL POC Glucose (mg/dL) (75-99) mg/dL Ferritin 575.0 H (10.0-291.0) ng/mL AST 42 H (14-36) U/L Lactate Dehydrogenase 1120 H (313-618) U/L C-Reactive Protein 5.8 H (<1.0) mg/dL Coronavirus (PCR) (Not Detectd) 06/25/21 06/26/21 Range/Units 18:56 00:22 WBC (3.8-10.6) k/uL Hct (34.0-46.0) % Neutrophils # (1.3-7.7) k/uL Lymphocytes # (1.0-4.8) k/uL APTT (22.0-30.0) sec D-Dimer (<0.60) mg/L FEU Sodium (137-145) mmol/L BUN (7-17) mg/dL Creatinine (0.52-1.04) mg/dL Glucose (74-99) mg/dL POC Glucose (mg/dL) 111 H (75-99) mg/dL Ferritin (10.0-291.0) ng/mL AST (14-36) U/L Lactate Dehydrogenase (313-618) U/L C-Reactive Protein (<1.0) mg/dL Coronavirus (PCR) Detected A (Not Detectd) Assessment and Plan Assessment: Bilateral Covid pneumonia Acute hypoxic respiratory failure Increased inflammatory markers Hypertension Hyperlipidemia History of osteoarthritis Hypothyroidism History of CVA/TIA Plan: this is pleasant 85 years old female who presents with covid pneumonia Continue with dexamethasone Continue with vitamin C, vitamin D and zinc Pulmonary consult Labs and medication were reviewed.. Continue same treatment. Continue with symptomatic treatment. Resume home medication. Monitor lytes and vitals. DVT and GI prophylaxis. Further recommendations depends on the clinical course of the patient DVT prophylaxis: Subcutaneous heparin GI Prophylaxis: Pepcid PT/OT: Pending Prognosis is guarded
[2021-06-26 09:24] LABS: Basophils # (A) 0.05 X 10*3/uL (0.00-0.10); Basophils % (A) 0.6 %; Eosinophils # (A) 0 X 10*3/uL (0.04-0.35); Eosinophils % (A) 0 %; HCT 44.2 % (37.2-46.3); HGB 14.6 g/dL (12.0-15.0); Lymphocytes # (A) 0.62 X 10*3/uL (0.90-5.00); Lymphocytes % (A) 7.8 %; MCH 28.3 pg (27.0-32.0); MCV 85.8 fL (80.0-97.0); Mean Platelet Volume 10.5 fL (9.5-12.2); Monocytes # (A) 0.38 X 10*3/uL (0.20-1.00); Monocytes % (A) 4.8 %; Neutrophils # (A) 6.75 X 10*3/uL (1.80-7.70); Neutrophils % (A) 84.5 %; Platelet Count 353 X 10*3/uL (140-440); RBC 5.15 X 10*6/uL (4.10-5.20); RDW 13.3 % (11.5-14.5); WBC 7.98 X 10*3/uL (4.50-10.00)
[2021-06-26 10:00] LABS: African American GFR (CKD) 59.1 (60.0-200.0); Anion Gap 13.3 mmol/L (10.00-18.00); BUN/Creat Ratio 24.2 Ratio (12.00-20.00); Blood Urea Nitrogen 24.2 mg/dL (9.0-27.0); Calcium 8.6 mg/dL (8.7-10.3); Carbon Dioxide 21.7 mmol/L (20.0-27.5); Potassium 4.3 mmol/L (3.5-5.5)
--- NOTE | 2021-06-26 10:42 | P.CNPUL ---
History of Present Illness Consult date: 06/26/21 Requesting physician: Hernan E Vj Reason for consult: dyspnea, hypoxemia, abnormal CXR/CT Chief complaint: Shortness of breath, cough, weakness History of present illness: This is a very pleasant 85-year-old female patient who follows with Dr. Goel as her primary care provider. She has a history of hypothyroidism, hypertension, previous CVA/TIA, hearing disorder. She presented here to the emergency room yesterday with a 2 week history of fatigue, weakness and worsening shortness of breath. She did test positive for CoVID last week. Her shortness of breath was getting worse and she was brought in for the same. She is not vaccinated. She is seen today in consultation in the emergency department. She is currently resting fairly comfortably in bed. She is on 6 L high flow nasal cannula to maintain O2 saturations in the low 90s. She's afebrile. Hemodynamically stable. Chest x-ray reveals bilateral pneumonia and systemic COVID-19. White count 7.9. Hemoglobin 14.6. Lymphocytes 0.6. D- dimer 0.82. Sodium 135. Potassium 4.3. Creatinine 1.0. Ferritin 575. LDH 11 20. C-reactive protein 5.8. Pro-calcitonin 0.06. Carotid virus by PCR positive. She's been initiated on Decadron, Lovenox, vitamin supplements. Outside the window for Remdesivir. Review of Systems REVIEW OF SYSTEMS: CONSTITUTIONAL: Positive for generalized weakness, fatigue. Denies any recent significant weight loss or weight gain. EYES: Denies change in vision. EARS, NOSE, MOUTH, THROAT: Denies headaches, denies sore throat. CARDIOVASCULAR: Denies chest pain, palpitations or syncopal episodes. RESPIRATORY: Positive for shortness of breath, cough, congestion no hemoptysis. GASTROINTESTINAL: Denies change in appetite, denies abdominal pain GENITOURINARY: Denies hematuria, denies infections. MUSKULOSKELETAL: Denies pain, denies swelling. INTEGUMENTARY: Denies rash, denies eczema. NEUROLOGICAL: Denies recent memory loss, no recent seizure activity. PSYCHIATRIC: Denies anxiety, denies depression. HEMATOLOGIC/LYMPHATIC: Denies anemia, denies enlarged lymph nodes. Past Medical History Past Medical History: CVA/TIA, Eye Disorder, Hearing Disorder / Deafness, Hyperlipidemia, Hypertension, Osteoarthritis (OA), Thyroid Disorder Additional Past Medical History / Comment(s): GLAUCOMA. 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 History of Any Multi-Drug Resistant Organisms: None Reported Past Surgical History: Appendectomy, Joint Replacement Additional Past Surgical History / Comment(s): BILATERAL SHOULDER ARTHROPLASTY. BILATERAL CATARACTS W/ LENS IMPLANTS. TOTAL LT HIP. Past Anesthesia/Blood Transfusion Reactions: No Reported Reaction Past Psychological History: No Psychological Hx Reported Smoking Status: Never smoker Past Alcohol Use History: None Reported Past Drug Use History: None Reported - Past Family History Father Family Medical History: Cancer Medications and Allergies Home Medications Medication Instructions Recorded Confirmed Type Benzonatate [Tessalon Perles] 100 mg PO TID PRN 06/25/21 06/25/21 History Zolpidem Tartrate [Ambien] 10 mg PO HS 06/25/21 06/25/21 History hydrALAZINE HCL 10 mg PO TID 06/25/21 06/25/21 History Allergies Allergy/AdvReac Type Severity Reaction Status Date / Time alcohol Allergy Nausea & Verified 06/25/21 18:27 Vomiting hydrocodone [From Vicodin] Allergy Itching Verified 06/25/21 18:27 tramadol [From Ultram] Allergy Unknown Verified 06/25/21 18:27 Physical Exam Vitals: Vital Signs Temp Pulse Resp BP Pulse Ox 06/26/21 04:00 98.4 F 85 20 127/73 91 L 06/26/21 03:23 91 L 06/26/21 01:00 24 92 L 06/26/21 00:18 96.9 F L 85 20 126/78 92 L 06/25/21 21:39 86 20 131/81 92 L 06/25/21 19:27 94 20 148/86 94 L 06/25/21 17:54 90 20 133/76 90 L 06/25/21 17:12 98.5 F 108 H 19 119/65 86 L Intake and Output 06/25/21 06/26/21 06/26/21 22:59 06:59 14:59 Other: Weight 74.843 kg GENERAL EXAM: Alert, weak, 85-year-old female patient on 6 L high flow nasal cannula, fairly comfortable in no apparent distress. HEAD: Normocephalic. EYES: Normal reaction of pupils, equal size. NOSE: Clear with pink turbinates. THROAT: No erythema or exudates. NECK: No masses, no JVD. CHEST: No chest wall deformity. LUNGS: Equal air entry with coarse crackles in the bilateral bases. CVS: S1 and S2 normal with no audible murmur, regular rhythm. ABDOMEN: No hepatosplenomegaly, normal bowel sounds, no guarding or rigidity. SPINE: No scoliosis or deformity SKIN: No rashes CENTRAL NERVOUS SYSTEM: No focal deficits, tone is normal in all 4 extremities. EXTREMITIES: There is no peripheral edema. No clubbing, no cyanosis. Per ipheral pulses are intact. Results - Laboratory Findings CBC and BMP: 06/26/21 03:46 06/26/21 03:46 PT/INR, D-dimer PT 10.4 sec (9.0-12.0) 06/25/21 18:20 INR 1.0 (<1.2) 06/25/21 18:20 D-Dimer 0.82 mg/L FEU (<0.60) H 06/25/21 18:20 Abnormal lab findings: Abnormal Labs 06/25/21 06/25/21 06/25/21 18:20 18:20 18:20 WBC 14.7 H Hct 46.2 H Immature Gran # Neutrophils # 12.5 H Lymphocytes # 0.9 L Eosinophils # APTT 20.5 L D-Dimer 0.82 H Sodium 133 L BUN 26 H Creatinine 1.08 H Est GFR (CKD-EPI)AfAm Est GFR (CKD-EPI)NonAf BUN/Creatinine Ratio Glucose 131 H POC Glucose (mg/dL) Calcium Ferritin 575.0 H AST 42 H Lactate Dehydrogenase 1120 H C-Reactive Protein 5.8 H Coronavirus (PCR) 06/25/21 06/26/21 06/26/21 18:56 00:22 03:46 WBC Hct Immature Gran # 0.18 H Neutrophils # Lymphocytes # 0.62 L Eosinophils # 0 L APTT D-Dimer Sodium BUN Creatinine Est GFR (CKD-EPI)AfAm Est GFR (CKD-EPI)NonAf BUN/Creatinine Ratio Glucose POC Glucose (mg/dL) 111 H Calcium Ferritin AST Lactate Dehydrogenase C-Reactive Protein Coronavirus (PCR) Detected A 06/26/21 03:46 WBC Hct Immature Gran # Neutrophils # Lymphocytes # Eosinophils # APTT D-Dimer Sodium BUN Creatinine Est GFR (CKD-EPI)AfAm 59.1 L Est GFR (CKD-EPI)NonAf 51.0 L BUN/Creatinine Ratio 24.20 H Glucose 131 H POC Glucose (mg/dL) Calcium 8.6 L Ferritin AST Lactate Dehydrogenase C-Reactive Protein Coronavirus (PCR) - Diagnostic Findings Chest x-ray: image reviewed Assessment and Plan Assessment: 1 Acute hypoxemic respiratory failure secondary to acute COVID-19 pneumonia. Not vaccinated. Outside the window for Remdesivir. 2 Elevated inflammatory marker secondary to above 3 Hearing disorder 4 History of CVA/TIA 5. Thyroid isn't 6 Hypertension 7 Hyperlipidemia Plan: The patient was seen and evaluated by Dr. Gee Chest x-ray and labs reviewed Continue Lovenox, Decadron, vitamin supplements Outside the window for Remdesivir May consider Baricitinib if her condition worsens Titrate the FiO2 as tolerated Follow-up chest x-ray, inflammatory markers in the a.m. Prognosis is guarded We will continue to follow and make further recommendations based on her clinical status I, the cosigning physician, performed a history & physical examination of the patient. Lungs sounds with coarse crackles in the bilateral bases. Maintaining O2 saturations in the 90s on liters high flow nasal cannula. I discussed the assessment and plan of care with my nurse practitioner, Fabienne Arguelles. I attest to the above consultation as dictated by her. Time with Patient: Greater than 30
[2021-06-26] MEDS: ASCORBIC ACID 500 MG TAB PO SCH (11:39)
[2021-06-26] MEDS: ZINC SULFATE 220 MG CAP PO SCH (11:39)
[2021-06-26] MEDS: CHOLECALCIFEROL 25 MCG (1000 IU) TABLET PO SCH (11:39)
[2021-06-26] MEDS: FAMOTIDINE 20 MG TAB PO SCH ×2 (11:39→21:54)
[2021-06-26] MEDS: ENOXAPARIN 40 MG/0.4 ML SYRINGE SQ SCH (11:41)
[2021-06-26 11:45] LABS: Glucose,Whole Blood 111 mg/dL (75-99)
[2021-06-26 20:43] LABS: Glucose,Whole Blood 118 mg/dL (75-99)
[2021-06-26] MEDS: ZOLPIDEM 5 MG TAB PO SCH (23:29)
[2021-06-27 07:29] LABS: Glucose,Whole Blood 122 mg/dL (75-99)
[2021-06-27] MEDS: INSULIN ASPART (NovoLOG) 100 UNIT/ML VIAL SQ SCH ×4 (07:33→20:44)
--- NOTE | 2021-06-27 09:03 | XR ---
EXAMINATION TYPE: XR chest 1V portable DATE OF EXAM: 06/27/2021 CLINICAL HISTORY: Difficulty breathing and covid pneumonia progress study. TECHNIQUE: Single AP portable upright view of the chest is obtained. COMPARISON: Chest x-ray from 2 days earlier FINDINGS: Bilateral multifocal opacities with relative sparing of left upper lung redemonstrated. Ca rdiac silhouette size stable and within normal limits with atherosclerotic change in the thoracic aor ta redemonstrated. Surgical changes bilateral shoulders partially imaged. IMPRESSION: Persistent bilateral multifocal opacities consistent with known covid-19 infection, no si gnificant change from most recent x-ray.
[2021-06-27] MEDS: FAMOTIDINE 20 MG TAB PO SCH ×2 (09:09→20:44)
[2021-06-27] MEDS: ASCORBIC ACID 500 MG TAB PO SCH (09:09)
[2021-06-27] MEDS: hydrALAZINE HCL 10 MG TAB PO SCH ×3 (09:09→22:19)
[2021-06-27] MEDS: DEXAMETHASONE SOD PHOSPHATE 10 MG/ML 1 ML VIAL IVP SCH (09:09)
[2021-06-27] MEDS: ENOXAPARIN 40 MG/0.4 ML SYRINGE SQ SCH (09:09)
[2021-06-27] MEDS: CHOLECALCIFEROL 25 MCG (1000 IU) TABLET PO SCH (09:09)
[2021-06-27] MEDS: ZINC SULFATE 220 MG CAP PO SCH (09:09)
[2021-06-27] MEDS ORDERED: guaiFENesin-DM 100-10MG/5ML 10 ML CUP PO PRN (09:23)
--- NOTE | 2021-06-27 10:47 | P.CONS ---
History of Present Illness - Reason for Consult Consult date: 06/26/21 covid 19 pneumonia Requesting physician: Ranjan Wolf - Chief Complaint shortness of breath x 2 weeks - History of Present Illness History of present illness : Patient is 85-year-old female presenting to the ER last evening for evaluation of weakness fatigue and worsening shortness of breath and this patient symptom has been going on for more than 2 weeks apparently the patient was diagnosed with a COVID-19 last week patient presented to hospital with worsening shortness of breath and "colonoscopy patient denies having any chest pain he did have a cough which is mostly dry in nature patient did have some nausea decreased oral intake but no vomiting and no significant diarrhea on presentation to the hospital the patient was afebrile patient was hypoxic with O2 sats of 86% on room air patient did have a elevated white count of 14.7 with a lymphopenia repeat white count is normal and did have persistent lymphopenia D-dimer was mildly elevated 0.82 patient did have mild elevated BUN and creatinine AST was mildly elevated as well as LDH procalcitonin is normal baltazar PCR was positive blood culture has been obtained which are currently pending patient did have a chest x-ray bilateral diffuse airspace pneumonia new compared to old exam patient has been admitted to hospital infectious disease was consulted for further management Review of system: CONSTITUTIONAL: Positive for weakness denies high-grade fever. EYES: No complaint. ENT: No complaint. RESPIRATORY: As per history of present illness. CARDIOVASCULAR: No complaint. GENITOURINARY: No complaint. GASTROINTESTINAL: As per history of present illness. MUSCULOSKELETAL: No complaint. INTEGUMENTARY: No complaint. PSYCHOLOGIC: No complaint. ENDOCRINE: No complaint. NEUROLOGIC: No complaint. Past medical history : Reviewed, documented below Past surgical history : Reviewed, documented below Social history: Reviewed, documented below Medications: Reviewed, as documented below EXAMINATION: Vital sigans= Reviewed and documented below GENERAL DESCRIPTION: Elderly female lying in bed, no distress. No tachypnea or accessory muscle of respiration use. HEENT: Shows Pallor , no scleral icterus. Oral mucous membrane is dry. NECK: Trachea central, no thyromegaly. LUNGS: Unlabored breathing. Decrease intensity of breath sounds. No wheeze or crackle. HEART: S1, S2, regular rate and rhythm. ABDOMEN: Soft, no tenderness , guarding or rigidity EXTREMITIES: No edema of feet. SKIN: No rash, no masses palpable. NEUROLOGICAL: The patient is awake, alert, oriented x3, mood and affect normal. LABS AND RADIOLOGY: Reviewed results see below Assessment : Patient presented to hospital with increasing shortness of breath and cough in this patient symptom has been going on for more than 2 weeks patient did have evidence of COVID-19 multifocal pneumonia on the chest x-ray unfortunately patient is out of the therapeutic window for remdesivir per [facility] policy and no evidence of any secondary bacterial pneumonia Plan: 1-patient will be treated with Decadron for Lovenox zinc and ascorbic acid 2-droplet isolation respiratory support 3-no need for systemic antibiotic therapy We will follow on clinical condition and cultures to further adjust medication if needed Thank you for this consultation we will follow the patient along with you Past Medical History Past Medical History: CVA/TIA, Eye Disorder, Hearing Disorder / Deafness, Hype rlipidemia, Hypertension, Osteoarthritis (OA), Thyroid Disorder Additional Past Medical History / Comment(s): GLAUCOMA. 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 History of Any Multi-Drug Resistant Organisms: None Reported Past Surgical History: Appendectomy, Joint Replacement Additional Past Surgical History / Comment(s): BILATERAL SHOULDER ARTHROPLASTY. BILATERAL CATARACTS W/ LENS IMPLANTS. TOTAL LT HIP. Past Anesthesia/Blood Transfusion Reactions: No Reported Reaction Past Psychological History: No Psychological Hx Reported Smoking Status: Never smoker Past Alcohol Use History: None Reported Past Drug Use History: None Reported - Past Family History Father Family Medical History: Cancer Medications and Allergies Home Medications Medication Instructions Recorded Confirmed Type Benzonatate [Tessalon Perles] 100 mg PO TID PRN 06/25/21 06/25/21 History Zolpidem Tartrate [Ambien] 10 mg PO HS 06/25/21 06/25/21 History hydrALAZINE HCL 10 mg PO TID 06/25/21 06/25/21 History Allergies Allergy/AdvReac Type Severity Reaction Status Date / Time alcohol Allergy Nausea & Verified 06/25/21 18:27 Vomiting hydrocodone [From Vicodin] Allergy Itching Verified 06/25/21 18:27 tramadol [From Ultram] Allergy Unknown Verified 06/25/21 18:27 Physical Exam Vitals: Vital Signs Temp Pulse Pulse Resp BP BP Pulse Ox 06/26/21 08:00 140 H 18 140/93 96 06/26/21 04:00 98.4 F 85 20 127/73 91 L 06/26/21 03:23 91 L 06/26/21 01:00 24 92 L 06/26/21 00:18 96.9 F L 85 20 126/78 92 L 06/25/21 21:39 86 20 131/81 92 L 06/25/21 19:27 94 20 148/86 94 L 06/25/21 17:54 90 20 133/76 90 L 06/25/21 17:12 98.5 F 108 H 19 119/65 86 L Intake and Output 06/25/21 06/26/21 06/26/21 22:59 06:59 14:59 Other: Weight 74.843 kg Results CBC & Chem 7: 06/26/21 03:46 06/26/21 03:46 Labs: Abnormal Lab Results - Last 24 Hours (Table) 06/25/21 06/25/21 06/25/21 Range/Units 18:20 18:20 18:20 WBC 14.7 H (3.8-10.6) k/uL Hct 46.2 H (34.0-46.0) % Immature Gran # (0.00-0.04) X 10*3/uL Neutrophils # 12.5 H (1.3-7.7) k/uL Lymphocytes # 0.9 L (1.0-4.8) k/uL Eosinophils # (0.04-0.35) X 10*3/uL APTT 20.5 L (22.0-30.0) sec D-Dimer 0.82 H (<0.60) mg/L FEU Sodium 133 L (137-145) mmol/L BUN 26 H (7-17) mg/dL Creatinine 1.08 H (0.52-1.04) mg/dL Est GFR (CKD-EPI)AfAm (60.0-200.0) Est GFR (CKD-EPI)NonAf (60.0-200.0) BUN/Creatinine Ratio (12.00-20.00) Ratio Glucose 131 H (74-99) mg/dL POC Glucose (mg/dL) (75-99) mg/dL Calcium (8.7-10.3) mg/dL Ferritin 575.0 H (10.0-291.0) ng/mL AST 42 H (14-36) U/L Lactate Dehydrogenase 1120 H (313-618) U/L C-Reactive Protein 5.8 H (<1.0) mg/dL Coronavirus (PCR) (Not Detectd) 06/25/21 06/26/21 06/26/21 Range/Units 18:56 00:22 03:46 WBC (3.8-10.6) k/uL Hct (34.0-46.0) % Immature Gran # 0.18 H (0.00-0.04) X 10*3/uL Neutrophils # (1.3-7.7) k/uL Lymphocytes # 0.62 L (1.0-4.8) k/uL Eosinophils # 0 L (0.04-0.35) X 10*3/uL APTT (22.0-30.0) sec D-Dimer (<0.60) mg/L FEU Sodium (137-145) mmol/L BUN (7-17) mg/dL Creatinine (0.52-1.04) mg/dL Est GFR (CKD-EPI)AfAm (60.0-200.0) Est GFR (CKD-EPI)NonAf (60.0-200.0) BUN/Creatinine Ratio (12.00-20.00) Ratio Glucose (74-99) mg/dL POC Glucose (mg/dL) 111 H (75-99) mg/dL Calcium (8.7-10.3) mg/dL Ferritin (10.0-291.0) ng/mL AST (14-36) U/L Lactate Dehydrogenase (313-618) U/L C-Reactive Protein (<1.0) mg/dL Coronavirus (PCR) Detected A (Not Detectd) 06/26/21 06/26/21 Range/Units 03:46 11:43 WBC (3.8-10.6) k/uL Hct (34.0-46.0) % Immature Gran # (0.00-0.04) X 10*3/uL Neutrophils # (1.3-7.7) k/uL Lymphocytes # (1.0-4.8) k/uL Eosinophils # (0.04-0.35) X 10*3/uL APTT (22.0-30.0) sec D-Dimer (<0.60) mg/L FEU Sodium (137-145) mmol/L BUN (7-17) mg/dL Creatinine (0.52-1.04) mg/dL Est GFR (CKD-EPI)AfAm 59.1 L (60.0-200.0) Est GFR (CKD-EPI)NonAf 51.0 L (60.0-200.0) BUN/Creatinine Ratio 24.20 H (12.00-20.00) Ratio Glucose 131 H (74-99) mg/dL POC Glucose (mg/dL) 111 H (75-99) mg/dL Calcium 8.6 L (8.7-10.3) mg/dL Ferritin (10.0-291.0) ng/mL AST (14-36) U/L Lactate Dehydrogenase (313-618) U/L C-Reactive Protein (<1.0) mg/dL Coronavirus (PCR) (Not Detectd)
[2021-06-27 11:34] LABS: Glucose,Whole Blood 113 mg/dL (75-99)
--- NOTE | 2021-06-27 12:25 | P.PN ---
Subjective This is a pleasant 85 years old female with past medical history of CVA/TIA, Hearing Disorder, Hyperlipidemia, Hypertension, Osteoarthritis , hypothyroidism Patient presents because of worsening dyspnea and cough with no phlegm. No chest pain. Patient could not specify for how long she's been having these symptoms but states is been getting worse lately. Patient states that she was tested positive for Covid a week ago. No diarrhea or vomiting. No urinary symptoms. No headache or weakness. But patient looks very tired. Baseline she can walk by herself. Currently lying in bed feels generally weak. She was not vaccinated for Covid. She denies smoking, alcohol or illicit drugs Patient is saturating 91% on 5 L of oxygen via nasal cannula, afebrile. His labs showing leukocytosis 14.6 K. D-dimer is elevated at 0.82. INR is normal 1.0. Sodium 133, creatinine is slightly up at 1.08. Liver enzymes are unremarkable. Lactate dehydrogenase elevated at 1120 and C-reactive protein elevated 5.8. pro-calcitonin is negative at 0.06 Coronal virus detected EKG showing sinus tachycardia at [address]-T changes Chest x-ray: Bilateral pneumonia 06/27/2021 With same respiratory distress and shortness of breath, however she can freely. No chest pain. She has quite a bit of cough and Robitussin is added. She remains on 8 L oxygen via nasal cannula. No labs today but chest x-ray showing persistent lateral infiltrates with no change from recent chest x-ray No need for systemic antibiotics per ID. Patient remains on dexamethasone, vitamin C, D and zinc. Pepcid and Lovenox Objective - Vital Signs Vital signs: Vital Signs Temp 97.4 F L 06/27/21 09:22 Pulse 90 06/27/21 09:22 Resp 18 06/27/21 09:22 BP 124/78 06/27/21 09:22 Pulse Ox 89 L 06/27/21 09:22 Intake & Output 06/26/21 06/27/21 06/27/21 18:59 06:59 18:59 Weight 74.843 kg Other: Voiding Method Toilet # Voids 3 - Exam GENERAL: The patient is alert and oriented x3, not in any acute distress. Well developed, well nourished. HEENT: Pupils are round and equally reacting to light. EOMI. No scleral icterus. No conjunctival pallor. Normocephalic, atraumatic. No pharyngeal erythema. No thyromegaly. CARDIOVASCULAR: S1 and S2 present. No murmurs, rubs, or gallops. PULMONARY: Chest is clear to auscultation, no wheezing or crackles. ABDOMEN: Soft, nontender, nondistended, normoactive bowel sounds. No palpable organomegaly. MUSCULOSKELETAL: No joint swelling or deformity. EXTREMITIES: No cyanosis, clubbing, or pedal edema. NEUROLOGICAL: Gross neurological examination did not reveal any focal deficits. SKIN: No rashes. no petechiae. - Labs CBC & Chem 7: 06/26/21 03:46 06/26/21 03:46 Labs: Abnormal Lab Results - Last 24 Hours (Table) 06/26/21 06/27/21 06/27/21 Range/Units 20:39 07:28 11:33 POC Glucose (mg/dL) 118 H 122 H 113 H (75-99) mg/dL Microbiology - Last 24 Hours (Table) 06/25/21 21:03 Blood Culture - Preliminary Blood No Growth after 24 hours 06/25/21 18:45 Blood Culture - Preliminary Blood No Growth after 24 hours Assessment and Plan Assessment: Bilateral Covid pneumonia Acute hypoxic respiratory failure Increased inflammatory markers Hypertension Hyperlipidemia History of osteoarthritis Hypothyroidism History of CVA/TIA Plan: this is pleasant 85 years old female who presents with covid pneumonia Continue with dexamethasone Continue with vitamin C, vitamin D and zinc Pulmonary consult Labs and medication were reviewed.. Continue same treatment. Continue with symptomatic treatment. Resume home medication. Monitor lytes and vitals. DVT and GI prophylaxis. Further recommendations depends on the clinical course of the patient DVT prophylaxis: Subcutaneous Lovenox GI Prophylaxis: Pepcid Prognosis is guarded
[2021-06-27 15:15] LABS: C Reactive Protein 4.1 mg/dL (<1.0)
--- NOTE | 2021-06-27 16:02 | P.PN ---
Subjective Progress Note Date: 06/27/21 Principal diagnosis: Shortness of breath. This is a very pleasant 85-year-old female patient who follows with Dr. Goel as her primary care provider. She has a history of hypothyroidism, hypertension, previous CVA/TIA, hearing disorder. She presented here to the emergency room yesterday with a 2 week history of fatigue, weakness and worsening shortness of breath. She did test positive for CoVID last week. Her shortness of breath was getting worse and she was brought in for the same. She is not vaccinated. She is seen today in consultation in the emergency departm ent. She is currently resting fairly comfortably in bed. She is on 6 L high flow nasal cannula to maintain O2 saturations in the low 90s. She's afebrile. Hemodynamically stable. Chest x-ray reveals bilateral pneumonia and systemic COVID-19. White count 7.9. Hemoglobin 14.6. Lymphocytes 0.6. D-dimer 0.82. Sodium 135. Potassium 4.3. Creatinine 1.0. Ferritin 575. LDH 1120. C- reactive protein 5.8. Pro-calcitonin 0.06. Carotid virus by PCR positive. She's been initiated on Decadron, Lovenox, vitamin supplements. Outside the window for Remdesivir. Progress note dated 06/27/2021. This is a 85-year-old female that we saw yesterday in consultation. She was admitted with a diagnosis of coronavirus pneumonia. She has a history of hypothyroidism, hypertension, CVA, and impaired hearing. Currently, the patient's on 8 L high flow O2, with saturations between 88 and 91%. She's not receiving any IV fluids. She was thought to be outside the window for REM. Labs today included a d-dimer 0.47, LDH of 762, and C-reactive protein of 4.1. Chest x-ray showed persistent bilateral infiltrates, consistent with coronavirus pneumonia. Objective - Vital Signs Vital signs: Vital Signs Temp 98.2 F 06/27/21 14:00 Pulse 95 06/27/21 14:00 Resp 20 06/27/21 14:00 BP 137/73 06/27/21 14:00 Pulse Ox 89 L 06/27/21 14:00 Intake & Output 06/26/21 06/27/21 06/27/21 18:59 06:59 18:59 Intake Total 200 Balance 200 Weight 74.843 kg Intake: Oral 200 Other: Voiding Method Toilet # Voids 3 - Exam No acute distress, oriented 3. Currently on 8 L high flow nasal O2. Saturations between 8891%. HEENT examination is grossly unremarkable. Neck supple. Full range of motion. No adenopathy thyromegaly or neck vein distention. Cardiovascular examination reveals regular rhythm rate. S1-S2 normal. No S3 or S4. No discernible murmur noted. Heart sounds are distant. Heart rate 95 bpm. Lungs reveal bilateral scattered rhonchi, and basilar crackles. Breath sounds equal bilaterally. No wheezes noted. Abdomen soft bowel sounds are heard. No masses or tenderness. Extremities are intact. No cyanosis clubbing or edema. Skin is without rash or lesion. Neurologic examination is brief but nonfocal. - Labs CBC & Chem 7: 06/26/21 03:46 06/26/21 03:46 Labs: Abnormal Lab Results - Last 24 Hours (Table) 06/26/21 06/27/21 06/27/21 Range/Units 20:39 07:28 11:33 POC Glucose (mg/dL) 118 H 122 H 113 H (75-99) mg/dL Lactate Dehydrogenase (313-618) U/L C-Reactive Protein (<1.0) mg/dL 06/27/21 Range/Units 14:00 POC Glucose (mg/dL) (75-99) mg/dL Lactate Dehydrogenase 762 H (313-618) U/L C-Reactive Protein 4.1 H (<1.0) mg/dL Microbiology - Last 24 Hours (Table) 06/25/21 21:03 Blood Culture - Preliminary Blood No Growth after 24 hours 06/25/21 18:45 Blood Culture - Preliminary Blood No Growth after 24 hours Assessment and Plan Assessment: Acute hypoxemic respiratory failure, secondary to coronavirus pneumonia. Elevated inflammatory markers secondary to coronavirus infection. Decreased hearing. History of CVA/TIA. Hypertension. Hyperlipidemia. Plan: Plan dated 06/27/2021. The patient remains on between 8 L and 9 L nasal O2. Saturations are between 88 and 91%. The patient will continue on Lovenox and Decadron. The patient also continues on vitamin C, vitamin D3, and zinc. The patient is outside the window for REM. The patient is getting Tessalon for her cough. The patient's overall prognosis is guarded. Will continue to follow and make recommendations where appropriate. Time with Patient: Less than 30
[2021-06-27 16:48] LABS: Glucose,Whole Blood 111 mg/dL (75-99)
[2021-06-27 20:24] LABS: Glucose,Whole Blood 123 mg/dL (75-99)
[2021-06-27] MEDS: ZOLPIDEM 5 MG TAB PO SCH (20:44)
[2021-06-28 07:34] LABS: Glucose,Whole Blood 145 mg/dL (75-99)
[2021-06-28] MEDS: ENOXAPARIN 40 MG/0.4 ML SYRINGE SQ SCH (08:25)
[2021-06-28] MEDS: DEXAMETHASONE SOD PHOSPHATE 10 MG/ML 1 ML VIAL IVP SCH (08:25)
[2021-06-28] MEDS: INSULIN ASPART (NovoLOG) 100 UNIT/ML VIAL SQ SCH ×4 (08:31→21:37)
--- NOTE | 2021-06-28 08:54 | PN ---
PROGRESS NOTE DATE OF SERVICE: 06/27/2021 REASON FOR FOLLOWUP: COVID-19 pneumonia. INTERVAL HISTORY: The patient is afebrile, breathing slightly comfortably. Denies having any chest pain, shortness of breath. She did have a cough, not bringing up any sputum. No abdominal pain. No diarrhea. PHYSICAL EXAMINATION: Blood pressure 131/75, pulse of 84, temperature 97.4. She is 90% on 9 L nasal cannula. General description is an elderly female lying in bed in no distress. Respiratory system: Unlabored breathing, decreased intensity of breath sounds. No wheeze. Heart S1, S2. Regular rate and rhythm. Abdomen soft, no tenderness. LABS: 10. DIAGNOSTIC IMPRESSION AND PLAN: Patient with acute COVID-19 pneumonia out of the therapeutic window for Remdesivir, on Decadron, Lovenox, zinc and ascorbic acid to continue while monitoring clinical course closely. Continue supportive care. MMODL / IJN: [id number] /
[2021-06-28] MEDS ORDERED: ONDANSETRON 4 MG/2 ML VIAL IVP PRN (09:19)
[2021-06-28] MEDS: ZINC SULFATE 220 MG CAP PO SCH (09:55)
[2021-06-28] MEDS: FAMOTIDINE 20 MG TAB PO SCH ×2 (09:55→21:52)
[2021-06-28] MEDS: ASCORBIC ACID 500 MG TAB PO SCH (09:55)
[2021-06-28] MEDS: hydrALAZINE HCL 10 MG TAB PO SCH ×3 (09:55→21:52)
[2021-06-28] MEDS: CHOLECALCIFEROL 25 MCG (1000 IU) TABLET PO SCH (09:55)
[2021-06-28 12:29] LABS: Glucose,Whole Blood 153 mg/dL (75-99)
--- NOTE | 2021-06-28 13:28 | P.PN ---
Subjective This is a pleasant 85 years old female with past medical history of CVA/TIA, Hearing Disorder, Hyperlipidemia, Hypertension, Osteoarthritis , hypothyroidism Patient presents because of worsening dyspnea and cough with no phlegm. No chest pain. Patient could not specify for how long she's been having these symptoms but states is been getting worse lately. Patient states that she was tested positive for Covid a week ago. No diarrhea or vomiting. No urinary symptoms. No headache or weakness. But patient looks very tired. Baseline she can walk by herself. Currently lying in bed feels generally weak. She was not vaccinated for Covid. She denies smoking, alcohol or illicit drugs Patient is saturating 91% on 5 L of oxygen via nasal cannula, afebrile. His labs showing leukocytosis 14.6 K. D-dimer is elevated at 0.82. INR is normal 1.0. Sodium 133, creatinine is slightly up at 1.08. Liver enzymes are unremarkable. Lactate dehydrogenase elevated at 1120 and C-reactive protein elevated 5.8. pro-calcitonin is negative at 0.06 Coronal virus detected EKG showing sinus tachycardia at [address]-T changes Chest x-ray: Bilateral pneumonia 06/27/2021 With same respiratory distress and shortness of breath, however she can freely. No chest pain. She has quite a bit of cough and Robitussin is added. She remains on 8 L oxygen via nasal cannula. No labs today but chest x-ray showing persistent lateral infiltrates with no change from recent chest x-ray No need for systemic antibiotics per ID. Patient remains on dexamethasone, vitamin C, D and zinc. Pepcid and Lovenox 06/28/2021 Total Covid pneumonia and hypoxia. Her oxygen requirement is 9 L/m today. Patient states she has same dyspnea as yesterday. However her cough is better. She to his diet better than yesterday. Yesterday her LDH was trending down 762 and C-reactive protein down to 4.1. Multiple at 0.47. Chest x-ray showing persistent bilateral multifocal pneumonia. She is on dexamethasone, vitamin C, D and zinc. Lovenox and Pepcid Objective - Vital Signs Vital signs: Vital Signs Temp 97.4 F L 06/28/21 10:12 Pulse 86 06/28/21 10:12 Resp 18 06/28/21 10:12 BP 168/92 06/28/21 10:12 Pulse Ox 95 06/28/21 10:12 Intake & Output 06/27/21 06/28/21 06/28/21 18:59 06:59 18:59 Intake Total 200 Balance 200 Intake: Oral 200 Other: Voiding Method Toilet Toilet Toilet # Voids 3 - Exam GENERAL: The patient is alert and oriented x3, not in any acute distress. Well developed, well nourished. HEENT: Pupils are round and equally reacting to light. EOMI. No scleral icterus. No conjunctival pallor. Normocephalic, atraumatic. No pharyngeal erythema. No thyromegaly. CARDIOVASCULAR: S1 and S2 present. No murmurs, rubs, or gallops. PULMONARY: Chest is clear to auscultation, no wheezing or crackles. ABDOMEN: Soft, nontender, nondistended, normoactive bowel sounds. No palpable organomegaly. MUSCULOSKELETAL: No joint swelling or deformity. EXTREMITIES: No cyanosis, clubbing, or pedal edema. NEUROLOGICAL: Gross neurological examination did not reveal any focal deficits. SKIN: No rashes. no petechiae. - Labs CBC & Chem 7: 06/26/21 03:46 06/26/21 03:46 Labs: Abnormal Lab Results - Last 24 Hours (Table) 06/27/21 06/27/21 06/27/21 Range/Units 14:00 16:46 20:20 POC Glucose (mg/dL) 111 H 123 H (75-99) mg/dL Lactate Dehydrogenase 762 H (313-618) U/L C-Reactive Protein 4.1 H (<1.0) mg/dL 06/28/21 06/28/21 Range/Units 07:33 12:28 POC Glucose (mg/dL) 145 H 153 H (75-99) mg/dL Lactate Dehydrogenase (313-618) U/L C-Reactive Protein (<1.0) mg/dL Microbiology - Last 24 Hours (Table) 06/25/21 21:03 Blood Culture - Preliminary Blood No Growth after 48 hours 06/25/21 18:45 Blood Culture - Preliminary Blood No Growth after 48 hours Assessment and Plan Assessment: Bilateral Covid pneumonia Acute hypoxic respiratory failure Increased inflammatory markers Hypertension Hyperlipidemia History of osteoarthritis Hypothyroidism History of CVA/TIA Plan: this is pleasant 85 years old female who presents with covid pneumonia Continue with dexamethasone Continue with vitamin C, vitamin D and zinc Pulmonary consult Labs and medication were reviewed.. Continue same treatment. Continue with symptomatic treatment. Resume home medication. Monitor lytes and vitals. DVT and GI prophylaxis. Further recommendations depends on the clinical course of the patient DVT prophylaxis: Subcutaneous Lovenox GI Prophylaxis: Pepcid Prognosis is guarded
[2021-06-28 17:03] LABS: Glucose,Whole Blood 133 mg/dL (75-99)
[2021-06-28] MEDS: DEXTROSE 5%-0.9% NACL 1,000 ML IV SCH (17:58)
--- NOTE | 2021-06-28 19:48 | P.PN ---
Subjective Progress Note Date: 06/28/21 Principal diagnosis: Shortness of breath. This is a very pleasant 85-year-old female patient who follows with Dr. oGel as her primary care provider. She has a history of hypothyroidism, hypertension, previous CVA/TIA, hearing disorder. She presented here to the emergency room yesterday with a 2 week history of fatigue, weakness and worsening shortness of breath. She did test positive for CoVID last week. Her shortness of breath was getting worse and she was brought in for the same. She is not vaccinated. She is seen today in consultation in the emergency departm ent. She is currently resting fairly comfortably in bed. She is on 6 L high flow nasal cannula to maintain O2 saturations in the low 90s. She's afebrile. Hemodynamically stable. Chest x-ray reveals bilateral pneumonia and systemic COVID-19. White count 7.9. Hemoglobin 14.6. Lymphocytes 0.6. D-dimer 0.82. Sodium 135. Potassium 4.3. Creatinine 1.0. Ferritin 575. LDH 1120. C- reactive protein 5.8. Pro-calcitonin 0.06. Carotid virus by PCR positive. She's been initiated on Decadron, Lovenox, vitamin supplements. Outside the window for Remdesivir. Progress note dated 06/27/2021. This is a 85-year-old female that we saw yesterday in consultation. She was admitted with a diagnosis of coronavirus pneumonia. She has a history of hypothyroidism, hypertension, CVA, and impaired hearing. Currently, the patient's on 8 L high flow O2, with saturations between 88 and 91%. She's not receiving any IV fluids. She was thought to be outside the window for REM. Labs today included a d-dimer 0.47, LDH of 762, and C-reactive protein of 4.1. Chest x-ray showed persistent bilateral infiltrates, consistent with coronavirus pneumonia. Progress note dated 06/28/2021. 85-year-old female, again seen in room 465. She's on 9 L high flow nasal O2. She's not receiving any IV fluids. She's not really eating much in the way of food. We will ask the primary service to consider placing a PICC line, and giving the patient TPN. The patient is very frail appearing, and very hard of hearing. No new labs today other than a sugar of 133. Chest x-ray from June 27 has been reviewed. Objective - Vital Signs Vital signs: Vital Signs Temp 97.5 F L 06/28/21 18:43 Pulse 77 06/28/21 18:43 Resp 20 06/28/21 18:43 BP 145/83 06/28/21 18:43 Pulse Ox 93 L 06/28/21 18:43 Intake & Output 06/28/21 06/28/21 06/29/21 06:59 18:59 06:59 Intake Total 200 Balance 200 Intake: Oral 200 Other: Voiding Method Toilet Toilet # Voids 2 - Exam No acute distress, oriented 3. Currently on 9 L high flow nasal O2. Saturations are 93 %. HEENT examination is grossly unremarkable. Neck supple. Full range of motion. No adenopathy thyromegaly or neck vein distention. Cardiovascular examination reveals regular rhythm rate. S1-S2 normal. No S3 or S4. No discernible murmur noted. Heart sounds are distant. Heart rate 77 bpm. Lungs reveal bilateral scattered rhonchi, and basilar crackles. Breath sounds equal bilaterally. No wheezes noted. Abdomen soft bowel sounds are heard. No masses or tenderness. Extremities are intact. No cyanosis clubbing or edema. Skin is without rash or lesion. Neurologic examination is brief but nonfocal. - Labs CBC & Chem 7: 06/26/21 03:46 06/26/21 03:46 Labs: Abnormal Lab Results - Last 24 Hours (Table) 06/27/21 06/28/21 06/28/21 Range/Units 20:20 07:33 12:28 POC Glucose (mg/dL) 123 H 145 H 153 H (75-99) mg/dL 06/28/21 Range/Units 17:02 POC Glucose (mg/dL) 133 H (75-99) mg/dL Microbiology - Last 24 Hours (Table) 06/25/21 21:03 Blood Culture - Preliminary Blood No Growth after 48 hours 06/25/21 18:45 Blood Culture - Preliminary Blood No Growth after 48 hours Assessment and Plan Assessment: Acute hypoxemic respiratory failure, secondary to coronavirus pneumonia. Elevated inflammatory markers secondary to coronavirus infection. Decreased hearing. History of CVA/TIA. Hypertension. Hyperlipidemia. Plan: Plan dated 06/27/2021. The patient remains on between 8 L and 9 L nasal O2. Saturations are between 88 and 91%. The patient will continue on Lovenox and Decadron. The patient also continues on vitamin C, vitamin D3, and zinc. The patient is outside the window for REM. The patient is getting Tessalon for her cough. The patient's overall prognosis is guarded. Will continue to follow and make recommendations where appropriate. Plan dated 06/28/2021. The patient is up to 9 L nasal cannula. She is very frail appearing. She is still a full code. CODE STATUS should be addressed. In addition, the patient is not really taking in much nutrition. I've asked the nurse to call the primary service, to consider a PICC line, and TPN. The patient remains on vitamin C, vitamin D3, and zinc. The patient also continues on Lovenox and Decadron. Prognosis is very guarded. We will continue to follow and make recommendations where appropriate. Time with Patient: Less than 30
[2021-06-28 20:40] LABS: Glucose,Whole Blood 112 mg/dL (75-99)
[2021-06-28] MEDS: ALBUTEROL HFA INHALER INHALATION PRN (20:48)
[2021-06-28] MEDS: ZOLPIDEM 5 MG TAB PO SCH (21:52)
--- NOTE | 2021-06-29 03:08 | PN ---
PROGRESS NOTE DATE OF SERVICE: 06/28/2021 REASON FOR FOLLOWUP: COVID-19 pneumonia. INTERVAL HISTORY: The patient is afebrile. The patient is currently requiring high-flow nasal oxygen. The patient denies any worsening shortness of breath or chest pain. Occasional cough. No abdominal pain, no diarrhea. PHYSICAL EXAMINATION: Blood pressure 159/81 with a pulse of 86, temperature 98.2. She is 92% on 9 L nasal cannula. General description is an elderly female lying in bed in no distress. Respiratory system: Unlabored breathing, decreased breath sounds at the bases. No wheeze. Heart S1, S2. Regular rate and rhythm. Abdomen soft, no tenderness. LABS: No new labs have been obtained today. DIAGNOSTIC IMPRESSION AND PLAN: Patient with acute COVID-19 pneumonia. This patient's condition about the same, no worsening or improvement. Patient to continue with dexamethasone, Lovenox, zinc and ascorbic acid and monitor clinical course closely. Continue supportive care. MMODL / IJN: [id number] /
[2021-06-29 07:35] LABS: Glucose,Whole Blood 101 mg/dL (75-99)
[2021-06-29] MEDS: INSULIN ASPART (NovoLOG) 100 UNIT/ML VIAL SQ SCH ×4 (08:34→21:03)
[2021-06-29] MEDS: DEXTROSE 5%-0.9% NACL 1,000 ML IV SCH ×2 (08:35→20:42)
[2021-06-29] MEDS: ZINC SULFATE 220 MG CAP PO SCH (08:49)
[2021-06-29] MEDS: FAMOTIDINE 20 MG TAB PO SCH ×2 (08:49→21:03)
[2021-06-29] MEDS: CHOLECALCIFEROL 25 MCG (1000 IU) TABLET PO SCH (08:49)
[2021-06-29] MEDS: ENOXAPARIN 40 MG/0.4 ML SYRINGE SQ SCH (08:49)
[2021-06-29] MEDS: ASCORBIC ACID 500 MG TAB PO SCH (08:49)
[2021-06-29] MEDS: hydrALAZINE HCL 10 MG TAB PO SCH ×3 (08:49→21:03)
[2021-06-29] MEDS: DEXAMETHASONE SOD PHOSPHATE 10 MG/ML 1 ML VIAL IVP SCH (09:48)
[2021-06-29] MEDS: BENZONATATE 100 MG CAP PO PRN (09:49)
[2021-06-29 11:56] LABS: Glucose,Whole Blood 130 mg/dL (75-99)
--- NOTE | 2021-06-29 16:27 | P.PN ---
Subjective Progress Note Date: 06/29/21 Principal diagnosis: Dyspnea On 06/29/2021 patient seen in follow-up on medical surgical floor. She is confused, she is currently up to 9 L of oxygen pulse ox is 92%. She is on D5 half-normal saline at a rate of 75 ML per hour, she is on Decadron 6 mg daily and prophylactic dose Lovenox. Patient has been afebrile, hemodynamically she is stable, lung sounds positive for bilateral crackles. Patient is a poor historian, she is confused, she has a chair alarm on his she attempts to get up on her own. Appetite is poor. But clinical patient looks to be in no distress. Objective - Vital Signs Vital signs: Vital Signs Temp 99.0 F 06/29/21 14:00 Pulse 71 06/29/21 14:00 Resp 18 06/29/21 14:00 BP 146/58 06/29/21 14:00 Pulse Ox 91 L 06/29/21 14:00 Intake & Output 06/28/21 06/29/21 06/29/21 18:59 06:59 18:59 Intake Total 200 Balance 200 Intake: Oral 200 Other: Voiding Method Toilet Toilet Toilet # Voids 2 2 - Exam GENERAL EXAM: Alert, confused, 85-year-old white female, on 9 L of oxygen the pulse ox of 92%, sitting up in the recliner, with a chair alarm on comfortable in no apparent distress. HEAD: Normocephalic/atraumatic. EYES: Normal reaction of pupils, equal size. Conjunctiva pink, sclera white. NOSE: Clear with pink turbinates. THROAT: No erythema or exudates. NECK: No masses, no JVD, no thyroid enlargement, no adenopathy. CHEST: No chest wall deformity. Symmetrical expansion. LUNGS: Equal air entry with bilateral crackles CVS: Regular rate and rhythm, normal S1 and S2, no gallops, no murmurs, no rubs ABDOMEN: Soft, nontender. No hepatosplenomegaly, normal bowel sounds, no guarding or rigidity. EXTREMITIES: No clubbing, no edema, no cyanosis, 2+ pulses and upper and lower extremities. MUSCULOSKELETAL: Muscle strength and tone normal. SPINE: No scoliosis or deformity SKIN: No rashes CENTRAL NERVOUS SYSTEM: Alert and oriented -1. No focal deficits, tone is normal in all 4 extremities. PSYCHIATRIC: Alert and oriented -1. Confused Intact judgment and insight. - Labs CBC & Chem 7: 06/26/21 03:46 06/26/21 03:46 Labs: Abnormal Lab Results - Last 24 Hours (Table) 06/28/21 06/28/21 06/29/21 Range/Units 17:02 20:38 07:34 POC Glucose (mg/dL) 133 H 112 H 101 H (75-99) mg/dL 06/29/21 Range/Units 11:54 POC Glucose (mg/dL) 130 H (75-99) mg/dL Microbiology - Last 24 Hours (Table) 06/25/21 21:03 Blood Culture - Preliminary Blood No Growth after 72 hours 06/25/21 18:45 Blood Culture - Preliminary Blood No Growth after 72 hours Assessment and Plan Plan: Assessment: #1. Acute hypoxic respiratory failure secondary to COVID-19 pneumonia, patient was outside the window for Remdesivir as she presented with a 2 week history of symptoms. Not vaccinated against COVID-19 #2. Altered mental status, possibly related to hypoxic respiratory failure related to the above #3. Elevated inflammatory markers related to acute COVID-19 pneumonia #4. Hard of hearing #5. History of CVA/TIA #6. Hypertension #7. Hyperlipidemia Plan: Continue current medical treatment Maintain safety precautions Titrate FiO2 to keep O2 sats ratios at 90% and above Currently at 9 L of oxygen Obtain inflammatory markers, followed d-dimer Continue current dose Decadron and Lovenox, continue COVID-19 vitamins We'll continue to follow her clinical course I performed a history & physical examination of the patient and discussed their management with my nurse practitioner, Bessie Marte. I reviewed the nurse practitioner's note and agree with the documented findings and plan of care. Lung sounds are positive for diminished breath sounds throughout the lung sanders. The findings and the impression was discussed with the patient. I attest to the documentation by the nurse practitioner. Time with Patient: Less than 30
[2021-06-29 16:59] LABS: Glucose,Whole Blood 133 mg/dL (75-99)
--- NOTE | 2021-06-29 17:09 | P.PN ---
Subjective This is a pleasant 85 years old female with past medical history of CVA/TIA, Hearing Disorder, Hyperlipidemia, Hypertension, Osteoarthritis , hypothyroidism Patient presents because of worsening dyspnea and cough with no phlegm. No chest pain. Patient could not specify for how long she's been having these symptoms but states is been getting worse lately. Patient states that she was tested positive for Covid a week ago. No diarrhea or vomiting. No urinary symptoms. No headache or weakness. But patient looks very tired. Baseline she can walk by herself. Currently lying in bed feels generally weak. She was not vaccinated for Covid. She denies smoking, alcohol or illicit drugs Patient is saturating 91% on 5 L of oxygen via nasal cannula, afebrile. His labs showing leukocytosis 14.6 K. D-dimer is elevated at 0.82. INR is normal 1.0. Sodium 133, creatinine is slightly up at 1.08. Liver enzymes are unremarkable. Lactate dehydrogenase elevated at 1120 and C-reactive protein elevated 5.8. pro-calcitonin is negative at 0.06 Coronal virus detected EKG showing sinus tachycardia at [address]-T changes Chest x-ray: Bilateral pneumonia 06/27/2021 With same respiratory distress and shortness of breath, however she can freely. No chest pain. She has quite a bit of cough and Robitussin is added. She remains on 8 L oxygen via nasal cannula. No labs today but chest x-ray showing persistent lateral infiltrates with no change from recent chest x-ray No need for systemic antibiotics per ID. Patient remains on dexamethasone, vitamin C, D and zinc. Pepcid and Lovenox 06/28/2021 Total Covid pneumonia and hypoxia. Her oxygen requirement is 9 L/m today. Patient states she has same dyspnea as yesterday. However her cough is better. She to his diet better than yesterday. Yesterday her LDH was trending down 762 and C-reactive protein down to 4.1. Multiple at 0.47. Chest x-ray showing persistent bilateral multifocal pneumonia. She is on dexamethasone, vitamin C, D and zinc. Lovenox and Pepcid 06/29/2021 Patient sitting in bed most of the time, she feels generally weak. She still on 9 L/m of oxygen since yesterday. No labs from today She remains on dexamethasone and multiple vitamins, Lovenox and Pepcid. Also patient was started on D5 normal saline at 75 mL/h. Patient has not eating much Repeat labs tomorrow morning Objective - Vital Signs Vital signs: Vital Signs Temp 97.8 F 06/29/21 10:00 Pulse 90 06/29/21 10:00 Resp 16 06/29/21 10:06 BP 150/80 06/29/21 10:00 Pulse Ox 92 L 06/29/21 10:00 Intake & Output 06/28/21 06/29/21 06/29/21 18:59 06:59 18:59 Intake Total 200 Balance 200 Intake: Oral 200 Other: Voiding Method Toilet Toilet Toilet # Voids 2 2 - Exam GENERAL: The patient is alert and oriented x3, not in any acute distress. Well developed, well nourished. HEENT: Pupils are round and equally reacting to light. EOMI. No scleral icterus. No conjunctival pallor. Normocephalic, atraumatic. No pharyngeal erythema. No thyromegaly. CARDIOVASCULAR: S1 and S2 present. No murmurs, rubs, or gallops. PULMONARY: Chest is clear to auscultation, no wheezing or crackles. ABDOMEN: Soft, nontender, nondistended, normoactive bowel sounds. No palpable organomegaly. MUSCULOSKELETAL: No joint swelling or deformity. EXTREMITIES: No cyanosis, clubbing, or pedal edema. NEUROLOGICAL: Gross neurological examination did not reveal any focal deficits. SKIN: No rashes. no petechiae. - Labs CBC & Chem 7: 06/26/21 03:46 06/26/21 03:46 Labs: Abnormal Lab Results - Last 24 Hours (Table) 06/28/21 06/28/21 06/29/21 Range/Units 17:02 20:38 07:34 POC Glucose (mg/dL) 133 H 112 H 101 H (75-99) mg/dL 06/29/21 Range/Units 11:54 POC Glucose (mg/dL) 130 H (75-99) mg/dL Microbiology - Last 24 Hours (Table) 06/25/21 21:03 Blood Culture - Preliminary Blood No Growth after 72 hours 06/25/21 18:45 Blood Culture - Preliminary Blood No Growth after 72 hours Assessment and Plan Assessment: Bilateral Covid pneumonia Acute hypoxic respiratory failure Increased inflammatory markers decreased appetite Hypertension Hyperlipidemia History of osteoarthritis Hypothyroidism History of CVA/TIA Plan: this is pleasant 85 years old female who presents with covid pneumonia Continue with dexamethasone Continue with vitamin C, vitamin D and zinc Pulmonary consult Labs and medication were reviewed.. Continue same treatment. Continue with symptomatic treatment. Resume home medication. Monitor lytes and vitals. DVT and GI prophylaxis. Further recommendations depends on the clinical course of the patient DVT prophylaxis: Subcutaneous Lovenox GI Prophylaxis: Pepcid Prognosis is guarded
[2021-06-29 20:57] LABS: Glucose,Whole Blood 126 mg/dL (75-99)
[2021-06-29] MEDS: ZOLPIDEM 5 MG TAB PO SCH (21:03)
--- NOTE | 2021-06-30 01:49 | PN ---
PROGRESS NOTE DATE OF SERVICE: 06/29/2021. REASON FOR FOLLOWUP: COVID-19 pneumonia. INTERVAL HISTORY: The patient is afebrile, breathing slightly comfortably. Still requiring high-flow oxygen. No chest pain. No worsening cough. No abdominal pain, no diarrhea. PHYSICAL EXAMINATION: Blood pressure 172/91, pulse 92, temperature 98.6. She is 91% on 9 L nasal cannula. General description is an elderly female lying in bed in no distress. Respiratory system: Unlabored breathing, decreased intensity of the breath sounds. Heart S1, S2. Regular rate and rhythm. Abdomen soft, no tenderness. LABS: No new labs have been obtained today. DIAGNOSTIC IMPRESSION AND PLAN: This patient with acute COVID-19 pneumonia with acute respiratory failure. Condition remains to be critical with minimal clinical improvement. Continue with Decadron, Lovenox, zinc and ascorbic acid and monitor clinical course closely. MMODL / IJN: [id number] /
[2021-06-30 07:05] LABS: Glucose,Whole Blood 90 mg/dL (75-99)
[2021-06-30] MEDS: INSULIN ASPART (NovoLOG) 100 UNIT/ML VIAL SQ SCH ×4 (07:30→21:33)
[2021-06-30] MEDS: ALBUTEROL HFA INHALER INHALATION PRN ×2 (09:41→12:41)
[2021-06-30] MEDS: ENOXAPARIN 40 MG/0.4 ML SYRINGE SQ SCH (10:07)
[2021-06-30] MEDS: CHOLECALCIFEROL 25 MCG (1000 IU) TABLET PO SCH (10:08)
[2021-06-30] MEDS: DEXAMETHASONE SOD PHOSPHATE 10 MG/ML 1 ML VIAL IVP SCH (10:08)
[2021-06-30] MEDS: ZINC SULFATE 220 MG CAP PO SCH (10:08)
[2021-06-30] MEDS: FAMOTIDINE 20 MG TAB PO SCH ×2 (10:08→21:34)
[2021-06-30] MEDS: hydrALAZINE HCL 10 MG TAB PO SCH ×3 (10:08→21:34)
[2021-06-30 11:27] LABS: Basophils # (A) 0.04 X 10*3/uL (0.00-0.10); Basophils % (A) 0.3 %; Eosinophils # (A) 0 X 10*3/uL (0.04-0.35); Eosinophils % (A) 0 %; HCT 43.8 % (37.2-46.3); HGB 13.9 g/dL (12.0-15.0); Lymphocytes # (A) 1.22 X 10*3/uL (0.90-5.00); Lymphocytes % (A) 10.7 %; MCH 27.9 pg (27.0-32.0); MCHC 31.7 g/dL (32.0-37.0); Mean Platelet Volume 10.6 fL (9.5-12.2); Monocytes # (A) 0.94 X 10*3/uL (0.20-1.00); Monocytes % (A) 8.2 %; Neutrophils # (A) 9.04 X 10*3/uL (1.80-7.70); Platelet Count 369 X 10*3/uL (140-440); RBC 4.98 X 10*6/uL (4.10-5.20); RDW 13.4 % (11.5-14.5); WBC 11.45 X 10*3/uL (4.50-10.00)
[2021-06-30 11:33] LABS: Glucose,Whole Blood 116 mg/dL (75-99)
[2021-06-30] MEDS: DEXTROSE 5%-0.9% NACL 1,000 ML IV SCH ×2 (11:43→21:35)
[2021-06-30] MEDS: ASCORBIC ACID 500 MG TAB PO SCH (11:44)
[2021-06-30 11:58] LABS: Albumin/Globulin Ratio 1.2 (1.60-3.17); Anion Gap 12.6 mmol/L (10.00-18.00); BUN/Creat Ratio 22.52 Ratio (12.00-20.00); Blood Urea Nitrogen 23.2 mg/dL (9.0-27.0); C Reactive Protein 4.4 mg/dL (0.00-0.80); Calcium 8.8 mg/dL (8.7-10.3); Carbon Dioxide 22.6 mmol/L (20.0-27.5); Globulin 2.5 g/dL (1.6-3.3); Non-African American GFR(CKD) 49.2 (60.0-200.0); Potassium 4.3 mmol/L (3.5-5.5); Total Bilirubin 0.4 mg/dL (0.30-1.20); Total Protein 5.5 g/dL (6.2-8.2)
--- NOTE | 2021-06-30 14:21 | XR ---
EXAMINATION TYPE: XR chest 1V portable DATE OF EXAM: 06/30/2021 COMPARISON: 06/27/2021 HISTORY: 85 years Female. STUDY INDICATION GIVEN: COVID . TECHNIQUE: AP chest radiograph IMPRESSION: Patchy left greater than right airspace and interstitial opacities slightly decreased in the interval . This appears to be superimposed on a background of chronic lung disease COPD/emphysema. No pneumothorax or large effusion. Normal cardiomediastinal silhouette. Extensive atherosclerotic calcifications in the intrathoracic aorta which appears tortuous. Generalized osteopenia and partially seen bilateral shoulder joint hardware. No acute osseous abnormality. Surgical clips noted over the right upper abdomen.
[2021-06-30 17:03] LABS: Glucose,Whole Blood 136 mg/dL (75-99)
--- NOTE | 2021-06-30 18:15 | P.PN ---
Subjective Progress Note Date: 06/30/21 Principal diagnosis: Shortness of breath. This is a very pleasant 85-year-old female patient who follows with Dr. Goel as her primary care provider. She has a history of hypothyroidism, hypertension, previous CVA/TIA, hearing disorder. She presented here to the emergency room yesterday with a 2 week history of fatigue, weakness and worsening shortness of breath. She did test positive for CoVID last week. Her shortness of breath was getting worse and she was brought in for the same. She is not vaccinated. She is seen today in consultation in the emergency departm ent. She is currently resting fairly comfortably in bed. She is on 6 L high flow nasal cannula to maintain O2 saturations in the low 90s. She's afebrile. Hemodynamically stable. Chest x-ray reveals bilateral pneumonia and systemic COVID-19. White count 7.9. Hemoglobin 14.6. Lymphocytes 0.6. D-dimer 0.82. Sodium 135. Potassium 4.3. Creatinine 1.0. Ferritin 575. LDH 1120. C- reactive protein 5.8. Pro-calcitonin 0.06. Carotid virus by PCR positive. She's been initiated on Decadron, Lovenox, vitamin supplements. Outside the window for Remdesivir. Progress note dated 06/27/2021. This is a 85-year-old female that we saw yesterday in consultation. She was admitted with a diagnosis of coronavirus pneumonia. She has a history of hypothyroidism, hypertension, CVA, and impaired hearing. Currently, the patient's on 8 L high flow O2, with saturations between 88 and 91%. She's not receiving any IV fluids. She was thought to be outside the window for REM. Labs today included a d-dimer 0.47, LDH of 762, and C-reactive protein of 4.1. Chest x-ray showed persistent bilateral infiltrates, consistent with coronavirus pneumonia. Progress note dated 06/28/2021. 85-year-old female, again seen in room 465. She's on 9 L high flow nasal O2. She's not receiving any IV fluids. She's not really eating much in the way of food. We will ask the primary service to consider placing a PICC line, and giving the patient TPN. The patient is very frail appearing, and very hard of hearing. No new labs today other than a sugar of 133. Chest x-ray from June 27 has been reviewed. Progress note dated 06/30/2021. 85-year-old female, again seen in room 465. Currently, she is on 9 L high flow nasal O2. She is not receiving any IV fluids. She is not eating very much. We had mentioned in a previous note, at the primary service would consider a PICC line, and possibly TPN, or, a PEG tube. Currently, the patient is not manifesting any respiratory distress. She is very frail appearing. She also has significant impaired hearing. Labs today include a white count 11.45, hemoglobin 13.9, hematocrit 43.8, and a platelet count 369,000. D-dimer was 0.52. Sodium 140, potassium 4.3, chlorides 105, CO2 23, anion gap 13, BUN 23, and creatinine 1. LDH is 319, with a C-reactive protein of 14.4. Chest x-ray shows patchy bilateral airspace disease, left greater than right, which is slightly improved. Objective - Vital Signs Vital signs: Vital Signs Temp 98.0 F 06/30/21 15:00 Pulse 78 06/30/21 15:00 Resp 17 06/30/21 15:00 BP 131/70 06/30/21 15:00 Pulse Ox 97 06/30/21 15:00 Intake & Output 06/29/21 06/30/21 06/30/21 18:59 06:59 18:59 Intake Total 1150 240 Output Total 200 Balance 1150 240 -200 Intake: Oral 1150 240 Output: Urine 200 Other: Voiding Method Toilet Toilet # Voids 1 3 # Bowel Movements 1 - Exam No acute distress, oriented 3. Currently on 9 L high flow nasal O2. Saturations are 97 %. HEENT examination is grossly unremarkable. Neck supple. Full range of motion. No adenopathy thyromegaly or neck vein distention. Cardiovascular examination reveals regular rhythm rate. S1-S2 normal. No S3 or S4. No discernible murmur noted. Heart sounds are distant. Heart rate 73 bpm. Lungs reveal bilateral scattered rhonchi, and basilar crackles. Breath sounds equal bilaterally. No wheezes noted. Abdomen soft bowel sounds are heard. No masses or tenderness. Extremities are intact. No cyanosis clubbing or edema. Skin is without rash or lesion. Neurologic examination is brief but nonfocal. - Labs CBC & Chem 7: 06/30/21 06:18 06/30/21 06:18 Labs: Abnormal Lab Results - Last 24 Hours (Table) 06/29/21 06/30/21 06/30/21 Range/Units 20:55 06:18 06:18 WBC 11.45 H (4.50-10.00) X 10*3/uL MCHC 31.7 L (32.0-37.0) g/dL Immature Gran # 0.21 H (0.00-0.04) X 10*3/uL Neutrophils # 9.04 H (1.80-7.70) X 10*3/uL Eosinophils # 0 L (0.04-0.35) X 10*3/uL Est GFR (CKD-EPI)AfAm 57.0 L (60.0-200.0) Est GFR (CKD-EPI)NonAf 49.2 L (60.0-200.0) BUN/Creatinine Ratio 22.52 H (12.00-20.00) Ratio POC Glucose (mg/dL) 126 H (75-99) mg/dL Lactate Dehydrogenase 319 H (120-246) U/L C-Reactive Protein 4.40 H (0.00-0.80) mg/dL Total Protein 5.5 L (6.2-8.2) g/dL Albumin 3.0 L (3.8-4.9) g/dL Albumin/Globulin Ratio 1.20 L (1.60-3.17) g/dL 06/30/21 06/30/21 Range/Units 11:32 17:02 WBC (4.50-10.00) X 10*3/uL MCHC (32.0-37.0) g/dL Immature Gran # (0.00-0.04) X 10*3/uL Neutrophils # (1.80-7.70) X 10*3/uL Eosinophils # (0.04-0.35) X 10*3/uL Est GFR (CKD-EPI)AfAm (60.0-200.0) Est GFR (CKD-EPI)NonAf (60.0-200.0) BUN/Creatinine Ratio (12.00-20.00) Ratio POC Glucose (mg/dL) 116 H 136 H (75-99) mg/dL Lactate Dehydrogenase (120-246) U/L C-Reactive Protein (0.00-0.80) mg/dL Total Protein (6.2-8.2) g/dL Albumin (3.8-4.9) g/dL Albumin/Globulin Ratio (1.60-3.17) g/dL Microbiology - Last 24 Hours (Table) 06/25/21 21:03 Blood Culture - Preliminary Blood No Growth after 96 hours 06/25/21 18:45 Blood Culture - Preliminary Blood No Growth after 96 hours Assessment and Plan Assessment: Acute hypoxemic respiratory failure, secondary to coronavirus pneumonia. Elevated inflammatory markers secondary to coronavirus infection. Decreased hearing. History of CVA/TIA. Hypertension. Hyperlipidemia. Plan: Plan dated 06/27/2021. The patient remains on between 8 L and 9 L nasal O2. Saturations are between 88 and 91%. The patient will continue on Lovenox and Decadron. The patient also continues on vitamin C, vitamin D3, and zinc. The patient is outside the window for REM. The patient is getting Tessalon for her cough. The patient's overall prognosis is guarded. Will continue to follow and make recommendations where appropriate. Plan dated 06/28/2021. The patient is up to 9 L nasal cannula. She is very frail appearing. She is still a full code. CODE STATUS should be addressed. In addition, the patient is not really taking in much nutrition. I've asked the nurse to call the primary service, to consider a PICC line, and TPN. The patient remains on vitamin C, vitamin D3, and zinc. The patient also continues on Lovenox and Decadron. Prognosis is very guarded. We will continue to follow and make recommendations where appropriate. Plan dated 06/30/2021. The patient remains on 9 L high flow nasal cannula. The patient is very frail appearing. She remains a full code. CODE STATUS should be addressed by the primary service. The patient remains on vitamin C, vitamin D3, and zinc, as well as Lovenox and Decadron. We will continue to follow and make recommendations where appropriate. Prognosis is certainly guarded. Time with Patient: Less than 30
--- NOTE | 2021-06-30 18:52 | P.PN ---
Subjective This is a pleasant 85 years old female with past medical history of CVA/TIA, Hearing Disorder, Hyperlipidemia, Hypertension, Osteoarthritis , hypothyroidism Patient presents because of worsening dyspnea and cough with no phlegm. No chest pain. Patient could not specify for how long she's been having these symptoms but states is been getting worse lately. Patient states that she was tested positive for Covid a week ago. No diarrhea or vomiting. No urinary symptoms. No headache or weakness. But patient looks very tired. Baseline she can walk by herself. Currently lying in bed feels generally weak. She was not vaccinated for Covid. She denies smoking, alcohol or illicit drugs Patient is saturating 91% on 5 L of oxygen via nasal cannula, afebrile. His labs showing leukocytosis 14.6 K. D-dimer is elevated at 0.82. INR is normal 1.0. Sodium 133, creatinine is slightly up at 1.08. Liver enzymes are unremarkable. Lactate dehydrogenase elevated at 1120 and C-reactive protein elevated 5.8. pro-calcitonin is negative at 0.06 Coronal virus detected EKG showing sinus tachycardia at [address]-T changes Chest x-ray: Bilateral pneumonia 06/27/2021 With same respiratory distress and shortness of breath, however she can freely. No chest pain. She has quite a bit of cough and Robitussin is added. She remains on 8 L oxygen via nasal cannula. No labs today but chest x-ray showing persistent lateral infiltrates with no change from recent chest x-ray No need for systemic antibiotics per ID. Patient remains on dexamethasone, vitamin C, D and zinc. Pepcid and Lovenox 06/28/2021 Total Covid pneumonia and hypoxia. Her oxygen requirement is 9 L/m today. Patient states she has same dyspnea as yesterday. However her cough is better. She to his diet better than yesterday. Yesterday her LDH was trending down 762 and C-reactive protein down to 4.1. Multiple at 0.47. Chest x-ray showing persistent bilateral multifocal pneumonia. She is on dexamethasone, vitamin C, D and zinc. Lovenox and Pepcid 06/29/2021 Patient sitting in bed most of the time, she feels generally weak. She still on 9 L/m of oxygen since yesterday. No labs from today She remains on dexamethasone and multiple vitamins, Lovenox and Pepcid. Also patient was started on D5 normal saline at 75 mL/h. Patient has not eating much Repeat labs tomorrow morning 06/30/2021 Patient is a frail and not eating, lethargic lying in bed most of the time. her Glucose is acceptable after starting on D5 normal saline. Her oxygen saturation improved down to 6 with saturation of 96%. Her inflammatory markers are improving LDH don't is a 19. D-dimer normal. Chest x- ray showed bilateral pneumonia. She remains on dexamethasone, multiple vitamins, Pepcid and Lovenox Objective - Vital Signs Vital signs: Vital Signs Temp 97.8 F 06/30/21 11:01 Pulse 92 06/30/21 11:01 Resp 18 06/30/21 11:26 BP 157/87 06/30/21 11:01 Pulse Ox 96 06/30/21 11:01 Intake & Output 06/29/21 06/30/21 06/30/21 18:59 06:59 18:59 Intake Total 1150 240 Balance 1150 240 Intake: Oral 1150 240 Other: Voiding Method Toilet Toilet # Voids 1 3 # Bowel Movements 1 - Exam GENERAL: The patient is alert and oriented x3, not in any acute distress. Well developed, well nourished. HEENT: Pupils are round and equally reacting to light. EOMI. No scleral icterus. No conjunctival pallor. Normocephalic, atraumatic. No pharyngeal erythema. No thyromegaly. CARDIOVASCULAR: S1 and S2 present. No murmurs, rubs, or gallops. PULMONARY: Chest is clear to auscultation, no wheezing or crackles. ABDOMEN: Soft, nontender, nondistended, normoactive bowel sounds. No palpable organomegaly. MUSCULOSKELETAL: No joint swelling or deformity. EXTREMITIES: No cyanosis, clubbing, or pedal edema. NEUROLOGICAL: Gross neurological examination did not reveal any focal deficits. SKIN: No rashes. no petechiae. - Labs CBC & Chem 7: 06/30/21 06:18 06/30/21 06:18 Labs: Abnormal Lab Results - Last 24 Hours (Table) 06/29/21 06/29/21 06/30/21 Range/Units 16:57 20:55 06:18 WBC 11.45 H (4.50-10.00) X 10*3/uL MCHC 31.7 L (32.0-37.0) g/dL Immature Gran # 0.21 H (0.00-0.04) X 10*3/uL Neutrophils # 9.04 H (1.80-7.70) X 10*3/uL Eosinophils # 0 L (0.04-0.35) X 10*3/uL Est GFR (CKD-EPI)AfAm (60.0-200.0) Est GFR (CKD-EPI)NonAf (60.0-200.0) BUN/Creatinine Ratio (12.00-20.00) Ratio POC Glucose (mg/dL) 133 H 126 H (75-99) mg/dL Lactate Dehydrogenase (120-246) U/L C-Reactive Protein (0.00-0.80) mg/dL Total Protein (6.2-8.2) g/dL Albumin (3.8-4.9) g/dL Albumin/Globulin Ratio (1.60-3.17) g/dL 06/30/21 06/30/21 Range/Units 06:18 11:32 WBC (4.50-10.00) X 10*3/uL MCHC (32.0-37.0) g/dL Immature Gran # (0.00-0.04) X 10*3/uL Neutrophils # (1.80-7.70) X 10*3/uL Eosinophils # (0.04-0.35) X 10*3/uL Est GFR (CKD-EPI)AfAm 57.0 L (60.0-200.0) Est GFR (CKD-EPI)NonAf 49.2 L (60.0-200.0) BUN/Creatinine Ratio 22.52 H (12.00-20.00) Ratio POC Glucose (mg/dL) 116 H (75-99) mg/dL Lactate Dehydrogenase 319 H (120-246) U/L C-Reactive Protein 4.40 H (0.00-0.80) mg/dL Total Protein 5.5 L (6.2-8.2) g/dL Albumin 3.0 L (3.8-4.9) g/dL Albumin/Globulin Ratio 1.20 L (1.60-3.17) g/dL Microbiology - Last 24 Hours (Table) 06/25/21 21:03 Blood Culture - Preliminary Blood No Growth after 96 hours 06/25/21 18:45 Blood Culture - Preliminary Blood No Growth after 96 hours Assessment and Plan Assessment: Bilateral Covid pneumonia Acute hypoxic respiratory failure Increased inflammatory markers decreased appetite Hypertension Hyperlipidemia History of osteoarthritis Hypothyroidism History of CVA/TIA Plan: this is pleasant 85 years old female who presents with covid pneumonia Continue with dexamethasone Continue with vitamin C, vitamin D and zinc Pulmonary consult Labs and medication were reviewed.. Continue same treatment. Continue with symptomatic treatment. Resume home medication. Monitor lytes and vitals. DVT and GI prophylaxis. Further recommendations depends on the clinical course of the patient DVT prophylaxis: Subcutaneous Lovenox GI Prophylaxis: Pepcid Prognosis is guarded
[2021-06-30 20:29] LABS: Glucose,Whole Blood 132 mg/dL (75-99)
[2021-06-30] MEDS: ZOLPIDEM 5 MG TAB PO SCH (21:34)
[2021-06-30] MEDS: BENZONATATE 100 MG CAP PO PRN (21:35)
--- NOTE | 2021-07-01 00:04 | PN ---
PROGRESS NOTE DATE OF SERVICE: 06/30/2021 REASON FOR FOLLOWUP: COVID-19 pneumonia. INTERVAL HISTORY: The patient is afebrile. The patient is still not a very good historian. Overall oral intake remains poor, per the nursing staff. No vomiting, diarrhea or any other changes were reported. Patient herself is not a good historian. PHYSICAL EXAMINATION: Blood pressure 133/84, pulse 100, temperature 98.2. She is 94% on 6 L nasal cannula. General description is an elderly female lying in bed in no distress. Respiratory system: Unlabored breathing, decreased intensity of breath sounds. No wheeze. Heart S1, S2. Regular rate and rhythm. Abdomen soft, no tenderness. LABS: Hemoglobin 13.9, white count .45, creatinine 1.0. DIAGNOSTIC IMPRESSION AND PLAN: Patient with acute COVID-19 pneumonia in this patient whose condition remains critical. The patient did have poor oral intake patient is covered with dexamethasone, Lovenox, zinc and ascorbic acid.. Possible consideration for hospice as per discussion with the nursing staff. Continue supportive care. MMODL / IJN: [id number] /
[2021-07-01 07:24] LABS: Glucose,Whole Blood 93 mg/dL (75-99)
[2021-07-01] MEDS: INSULIN ASPART (NovoLOG) 100 UNIT/ML VIAL SQ SCH ×4 (07:35→20:51)
[2021-07-01] MEDS: ENOXAPARIN 40 MG/0.4 ML SYRINGE SQ SCH (07:37)
[2021-07-01] MEDS: ASCORBIC ACID 500 MG TAB PO SCH (07:37)
[2021-07-01] MEDS: hydrALAZINE HCL 10 MG TAB PO SCH (07:37)
[2021-07-01] MEDS: FAMOTIDINE 20 MG TAB PO SCH ×2 (07:37→20:51)
[2021-07-01] MEDS: ZINC SULFATE 220 MG CAP PO SCH (07:37)
[2021-07-01] MEDS: CHOLECALCIFEROL 25 MCG (1000 IU) TABLET PO SCH (07:37)
[2021-07-01] MEDS: DEXAMETHASONE SOD PHOSPHATE 10 MG/ML 1 ML VIAL IVP SCH (07:37)
[2021-07-01] MEDS ORDERED: hydrALAZINE HCL 10 MG TAB PO ONE (08:30)
[2021-07-01] MEDS ORDERED: hydrALAZINE HCL 25 MG TAB PO SCH (09:00)
[2021-07-01 11:45] LABS: Glucose,Whole Blood 119 mg/dL (75-99)
--- NOTE | 2021-07-01 12:42 | P.PN ---
Subjective Progress Note Date: 07/01/21 Principal diagnosis: Dyspnea On 06/29/2021 patient seen in follow-up on medical surgical floor. She is confused, she is currently up to 9 L of oxygen pulse ox is 92%. She is on D5 half-normal saline at a rate of 75 ML per hour, she is on Decadron 6 mg daily and prophylactic dose Lovenox. Patient has been afebrile, hemodynamically she is stable, lung sounds positive for bilateral crackles. Patient is a poor historian, she is confused, she has a chair alarm on his she attempts to get up on her own. Appetite is poor. But clinical patient looks to be in no distress. 07/01/2021 patient seen in follow-up on medical surgical floor, patient is a very poor historian, she remains fused, and according to the daughter patient is confused intermittently at home although was never officially diagnosed with dementia. Appears to be breathing comfortably, she does have a cough, no chest discomfort. Breathing fairly comfortably, she is currently on 7 L of oxygen and patient has been requiring between 6 and 8 L of oxygen, pulse ox is around 91- 96%, blood pressure is elevated at 180/90 with a mean of 121. Patient is on Decadron 6 mg daily, Lovenox 40 daily. Patient was outside the window for Remdesivir, and currently continues on supportive treatment. Today's labs white blood cell count of 11.4, hemoglobin of 14.9, d-dimer is negative at 0.52, electrolytes and renal profile were unremarkable, and her inflammatory markers are improving with LDH down to 319, and CRP of 4.4. Her last chest x-ray from 06/30/2021 showed left greater than right airspace and interstitial opacities with a suggestion of slight worsening. Objective - Vital Signs Vital signs: Vital Signs Temp 98.1 F 07/01/21 06:10 Pulse 82 07/01/21 07:40 Resp 17 07/01/21 07:40 BP 180/92 07/01/21 06:10 Pulse Ox 96 07/01/21 06:10 Intake & Output 06/30/21 07/01/21 07/01/21 18:59 06:59 18:59 Intake Total 175 Output Total 200 Balance -200 175 Intake: Intake, IV Titration 75 Amount Dextrose 5%-0.9% NaCl 1, 75 000 ml @ 75 mls/hr IV . [id number] [facility] Rx#:[id number] Oral 100 Output: Urine 200 Other: Voiding Method Bedside Commode Bedside Commode # Voids 2 - Exam GENERAL EXAM: Alert, confused, 85-year-old white female, on 7 L of oxygen the pulse ox of 92%, sitting up in the recliner, with a chair alarm on comfortable in no apparent distress. HEAD: Normocephalic/atraumatic. EYES: Normal reaction of pupils, equal size. Conjunctiva pink, sclera white. NOSE: Clear with pink turbinates. THROAT: No erythema or exudates. NECK: No masses, no JVD, no thyroid enlargement, no adenopathy. CHEST: No chest wall deformity. Symmetrical expansion. LUNGS: Equal air entry with bilateral crackles CVS: Regular rate and rhythm, normal S1 and S2, no gallops, no murmurs, no rubs ABDOMEN: Soft, nontender. No hepatosplenomegaly, normal bowel sounds, no guarding or rigidity. EXTREMITIES: No clubbing, no edema, no cyanosis, 2+ pulses and upper and lower extremities. MUSCULOSKELETAL: Muscle strength and tone normal. SPINE: No scoliosis or deformity SKIN: No rashes CENTRAL NERVOUS SYSTEM: Alert and oriented -1. No focal deficits, tone is normal in all 4 extremities. PSYCHIATRIC: Alert and oriented -1. Confused Intact judgment and insight. - Labs CBC & Chem 7: 06/30/21 06:18 06/30/21 06:18 Labs: Abnormal Lab Results - Last 24 Hours (Table) 06/30/21 06/30/21 07/01/21 Range/Units 17:02 20:28 11:44 POC Glucose (mg/dL) 136 H 132 H 119 H (75-99) mg/dL Microbiology - Last 24 Hours (Table) 06/25/21 21:03 Blood Culture - Preliminary Blood No Growth after 120 hours 06/25/21 18:45 Blood Culture - Preliminary Blood No Growth after 120 hours Assessment and Plan Plan: Assessment: #1. Acute hypoxic respiratory failure secondary to COVID-19 pneumonia, patient was outside the window for Remdesivir as she presented with a 2 week history of symptoms. Not vaccinated against COVID-19 #2. Altered mental status, possibly related to hypoxic respiratory failure related to the above, patient has a component of chronic intermittent confusion at home according to the daughter #3. Elevated inflammatory markers related to acute COVID-19 pneumonia, improving #4. Hard of hearing #5. History of CVA/TIA #6. Hypertension #7. Hyperlipidemia Plan: Continue to wean Fio2 to keep o2 sats at or above 90% Continue current medical treatment Maintain safety precautions Currently at L of oxygen Continue current dose Decadron and Lovenox, continue COVID-19 vitamins We'll continue to follow her clinical course I performed a history & physical examination of the patient and discussed their management with my nurse practitioner, Bessie Marte. I reviewed the nurse practitioner's note and agree with the documented findings and plan of care. Lung sounds are positive for diminished breath sounds throughout the lung sanders. The findings and the impression was discussed with the patient. I attest to the documentation by the nurse practitioner. Time with Patient: Less than 30
[2021-07-01 13:48] VITALS: BMI 28.3
[2021-07-01 16:54] LABS: Glucose,Whole Blood 129 mg/dL (75-99)
[2021-07-01 20:48] LABS: Glucose,Whole Blood 102 mg/dL (75-99)
[2021-07-01] MEDS: hydrALAZINE HCL 25 MG TAB PO SCH (20:51)
[2021-07-01] MEDS: ZOLPIDEM 5 MG TAB PO SCH (20:51)
--- NOTE | 2021-07-01 22:47 | PN ---
PROGRESS NOTE DATE OF SERVICE: 07/01/2021 REASON FOR FOLLOWUP: COVID-19 pneumonia. INTERVAL HISTORY: The patient is afebrile. The patient is breathing slightly comfortably today. No chest pain or worsening shortness of breath. No worsening cough or sputum production. No abdominal pain or diarrhea. PHYSICAL EXAMINATION: Blood pressure 164/92 with a pulse of 93, temperature 97.7. She is 94% on 7 L nasal cannula. General description is an elderly female lying in bed in no distress. Respiratory system: Unlabored breathing, decreased intensity of breath sounds. No wheeze. Heart S1, S2. Regular rate and rhythm. Abdomen soft, no tenderness. LABS: No new labs have been obtained today. DIAGNOSTIC IMPRESSION AND PLAN: Patient with acute COVID-19 pneumonia. Minimal clinical improvement. Patient is covered with decadron, Lovenox, zinc and ascorbic acid; to continue along with respiratory support. Monitor clinical course closely. MMODL / IJN: [id number] /
[2021-07-02] MEDS: DEXTROSE 5%-0.9% NACL 1,000 ML IV SCH ×2 (01:28→22:52)
--- NOTE | 2021-07-02 06:13 | P.PN ---
Subjective This is a pleasant 85 years old female with past medical history of CVA/TIA, Hearing Disorder, Hyperlipidemia, Hypertension, Osteoarthritis , hypothyroidism Patient presents because of worsening dyspnea and cough with no phlegm. No chest pain. Patient could not specify for how long she's been having these symptoms but states is been getting worse lately. Patient states that she was tested positive for Covid a week ago. No diarrhea or vomiting. No urinary symptoms. No headache or weakness. But patient looks very tired. Baseline she can walk by herself. Currently lying in bed feels generally weak. She was not vaccinated for Covid. She denies smoking, alcohol or illicit drugs Patient is saturating 91% on 5 L of oxygen via nasal cannula, afebrile. His labs showing leukocytosis 14.6 K. D-dimer is elevated at 0.82. INR is normal 1.0. Sodium 133, creatinine is slightly up at 1.08. Liver enzymes are unremarkable. Lactate dehydrogenase elevated at 1120 and C-reactive protein elevated 5.8. pro-calcitonin is negative at 0.06 Coronal virus detected EKG showing sinus tachycardia at [address]-T changes Chest x-ray: Bilateral pneumonia 06/27/2021 With same respiratory distress and shortness of breath, however she can freely. No chest pain. She has quite a bit of cough and Robitussin is added. She remains on 8 L oxygen via nasal cannula. No labs today but chest x-ray showing persistent lateral infiltrates with no change from recent chest x-ray No need for systemic antibiotics per ID. Patient remains on dexamethasone, vitamin C, D and zinc. Pepcid and Lovenox 06/28/2021 Total Covid pneumonia and hypoxia. Her oxygen requirement is 9 L/m today. Patient states she has same dyspnea as yesterday. However her cough is better. She to his diet better than yesterday. Yesterday her LDH was trending down 762 and C-reactive protein down to 4.1. Multiple at 0.47. Chest x-ray showing persistent bilateral multifocal pneumonia. She is on dexamethasone, vitamin C, D and zinc. Lovenox and Pepcid 06/29/2021 Patient sitting in bed most of the time, she feels generally weak. She still on 9 L/m of oxygen since yesterday. No labs from today She remains on dexamethasone and multiple vitamins, Lovenox and Pepcid. Also patient was started on D5 normal saline at 75 mL/h. Patient has not eating much Repeat labs tomorrow morning 06/30/2021 Patient is a frail and not eating, lethargic lying in bed most of the time. her Glucose is acceptable after starting on D5 normal saline. Her oxygen saturation improved down to 6 with saturation of 96%. Her inflammatory markers are improving LDH don't is a 19. D-dimer normal. Chest x- ray showed bilateral pneumonia. She remains on dexamethasone, multiple vitamins, Pepcid and Lovenox 07/01/2021 Patient is more sitting up in bed. Has more energy today and more awake. She started eating her meal today 75 and 100%. No need for PICC line and parenteral nutrition for now. Her oxygen requirement fluctuating between 68 L/m. Continue with dexamethasone and vitamins Objective - Vital Signs Vital signs: Vital Signs Temp 98.1 F 07/01/21 06:10 Pulse 82 07/01/21 06:10 Resp 17 07/01/21 06:10 BP 180/92 07/01/21 06:10 Pulse Ox 96 07/01/21 06:10 Intake & Output 06/30/21 07/01/21 07/01/21 18:59 06:59 18:59 Intake Total 175 Output Total 200 Balance -200 175 Intake: Intake, IV Titration 75 Amount Dextrose 5%-0.9% NaCl 1, 75 000 ml @ 75 mls/hr IV . [id number] [facility] Rx#:[id number] Oral 100 Output: Urine 200 Other: Voiding Method Bedside Commode # Voids 2 - Exam GENERAL: The patient is alert and oriented x3, not in any acute distress. Well developed, well nourished. HEENT: Pupils are round and equally reacting to light. EOMI. No scleral icterus. No conjunctival pallor. Normocephalic, atraumatic. No pharyngeal erythema. No thyromegaly. CARDIOVASCULAR: S1 and S2 present. No murmurs, rubs, or gallops. PULMONARY: Chest is clear to auscultation, no wheezing or crackles. ABDOMEN: Soft, nontender, nondistended, normoactive bowel sounds. No palpable organomegaly. MUSCULOSKELETAL: No joint swelling or deformity. EXTREMITIES: No cyanosis, clubbing, or pedal edema. NEUROLOGICAL: Gross neurological examination did not reveal any focal deficits. SKIN: No rashes. no petechiae. - Labs CBC & Chem 7: 06/30/21 06:18 06/30/21 06:18 Labs: Abnormal Lab Results - Last 24 Hours (Table) 06/30/21 06/30/21 06/30/21 Range/Units 06:18 06:18 11:32 WBC 11.45 H (4.50-10.00) X 10*3/uL MCHC 31.7 L (32.0-37.0) g/dL Immature Gran # 0.21 H (0.00-0.04) X 10*3/uL Neutrophils # 9.04 H (1.80-7.70) X 10*3/uL Eosinophils # 0 L (0.04-0.35) X 10*3/uL Est GFR (CKD-EPI)AfAm 57.0 L (60.0-200.0) Est GFR (CKD-EPI)NonAf 49.2 L (60.0-200.0) BUN/Creatinine Ratio 22.52 H (12.00-20.00) Ratio POC Glucose (mg/dL) 116 H (75-99) mg/dL Lactate Dehydrogenase 319 H (120-246) U/L C-Reactive Protein 4.40 H (0.00-0.80) mg/dL Total Protein 5.5 L (6.2-8.2) g/dL Albumin 3.0 L (3.8-4.9) g/dL Albumin/Globulin Ratio 1.20 L (1.60-3.17) g/dL 06/30/21 06/30/21 Range/Units 17:02 20:28 WBC (4.50-10.00) X 10*3/uL MCHC (32.0-37.0) g/dL Immature Gran # (0.00-0.04) X 10*3/uL Neutrophils # (1.80-7.70) X 10*3/uL Eosinophils # (0.04-0.35) X 10*3/uL Est GFR (CKD-EPI)AfAm (60.0-200.0) Est GFR (CKD-EPI)NonAf (60.0-200.0) BUN/Creatinine Ratio (12.00-20.00) Ratio POC Glucose (mg/dL) 136 H 132 H (75-99) mg/dL Lactate Dehydrogenase (120-246) U/L C-Reactive Protein (0.00-0.80) mg/dL Total Protein (6.2-8.2) g/dL Albumin (3.8-4.9) g/dL Albumin/Globulin Ratio (1.60-3.17) g/dL Microbiology - Last 24 Hours (Table) 06/25/21 21:03 Blood Culture - Preliminary Blood No Growth after 120 hours 06/25/21 18:45 Blood Culture - Preliminary Blood No Growth after 120 hours Assessment and Plan Assessment: Bilateral Covid pneumonia Acute hypoxic respiratory failure Increased inflammatory markers decreased appetite Hypertension Hyperlipidemia History of osteoarthritis Hypothyroidism History of CVA/TIA Plan: this is pleasant 85 years old female who presents with covid pneumonia Continue with dexamethasone Continue with vitamin C, vitamin D and zinc Pulmonary consult Labs and medication were reviewed.. Continue same treatment. Continue with symptomatic treatment. Resume home medication. Monitor lytes and vitals. DVT and GI prophylaxis. Further recommendations depends on the clinical course of the patient DVT prophylaxis: Subcutaneous Lovenox GI Prophylaxis: Pepcid Prognosis is guarded
[2021-07-02 07:33] LABS: Glucose,Whole Blood 98 mg/dL (75-99)
[2021-07-02] MEDS: INSULIN ASPART (NovoLOG) 100 UNIT/ML VIAL SQ SCH ×4 (09:03→21:26)
[2021-07-02] MEDS: ALBUTEROL HFA INHALER INHALATION PRN (09:03)
[2021-07-02] MEDS: FAMOTIDINE 20 MG TAB PO SCH ×2 (09:14→21:26)
[2021-07-02] MEDS: ZINC SULFATE 220 MG CAP PO SCH (09:14)
[2021-07-02] MEDS: hydrALAZINE HCL 25 MG TAB PO SCH ×2 (09:14→21:26)
[2021-07-02] MEDS: ENOXAPARIN 40 MG/0.4 ML SYRINGE SQ SCH (09:14)
[2021-07-02] MEDS: DEXAMETHASONE SOD PHOSPHATE 10 MG/ML 1 ML VIAL IVP SCH (09:14)
[2021-07-02] MEDS: ASCORBIC ACID 500 MG TAB PO SCH (09:14)
[2021-07-02] MEDS: CHOLECALCIFEROL 25 MCG (1000 IU) TABLET PO SCH (09:14)
[2021-07-02 11:44] LABS: Glucose,Whole Blood 151 mg/dL (75-99)
--- NOTE | 2021-07-02 12:52 | P.PN ---
Subjective Progress Note Date: 07/02/21 Principal diagnosis: Dyspnea On 06/29/2021 patient seen in follow-up on medical surgical floor. She is confused, she is currently up to 9 L of oxygen pulse ox is 92%. She is on D5 half-normal saline at a rate of 75 ML per hour, she is on Decadron 6 mg daily and prophylactic dose Lovenox. Patient has been afebrile, hemodynamically she is stable, lung sounds positive for bilateral crackles. Patient is a poor historian, she is confused, she has a chair alarm on his she attempts to get up on her own. Appetite is poor. But clinical patient looks to be in no distress. 07/01/2021 patient seen in follow-up on medical surgical floor, patient is a very poor historian, she remains fused, and according to the daughter patient is confused intermittently at home although was never officially diagnosed with dementia. Appears to be breathing comfortably, she does have a cough, no chest discomfort. Breathing fairly comfortably, she is currently on 7 L of oxygen and patient has been requiring between 6 and 8 L of oxygen, pulse ox is around 91- 96%, blood pressure is elevated at 180/90 with a mean of 121. Patient is on Decadron 6 mg daily, Lovenox 40 daily. Patient was outside the window for Remdesivir, and currently continues on supportive treatment. Today's labs white blood cell count of 11.4, hemoglobin of 14.9, d-dimer is negative at 0.52, electrolytes and renal profile were unremarkable, and her inflammatory markers are improving with LDH down to 319, and CRP of 4.4. Her last chest x-ray from 06/30/2021 showed left greater than right airspace and interstitial opacities with a suggestion of slight worsening. On today's evaluation on 07/02/2021 patient seen in follow-up on medical surgical floor, she is resting comfortably in bed, she is sleeping, she is on 7 L of oxygen pulse ox is 95%, she is breathing comfortably, afebrile, vital signs have been stable, the nursing staff reports that patient was a bit less confused today, and she was able to state the correct year. Patient is currently on Decadron 6 mg daily, she is on active dose Lovenox 40 mg daily, albuterol inhaler, and COVID-19 vitamins including vitamin C, vitamin D and zinc. Objective - Vital Signs Vital signs: Vital Signs Temp 97.6 F 07/02/21 10:00 Pulse 86 07/02/21 10:00 Resp 16 07/02/21 10:00 BP 145/76 07/02/21 10:00 Pulse Ox 95 07/02/21 10:00 Intake & Output 07/01/21 07/02/21 07/02/21 18:59 06:59 18:59 Intake Total 400 Output Total 250 Balance 150 Weight 74.843 kg Intake: Oral 400 Output: Urine 250 Other: Voiding Method Bedside Commode Bedside Commode Bedside Commode # Voids 2 2 - Exam GENERAL EXAM: 85-year-old white female, on 7 L of oxygen the pulse ox of 92%, sleeping in bed in no apparent distress. HEAD: Normocephalic/atraumatic. EYES: Normal reaction of pupils, equal size. Conjunctiva pink, sclera white. NOSE: Clear with pink turbinates. THROAT: No erythema or exudates. NECK: No masses, no JVD, no thyroid enlargement, no adenopathy. CHEST: No chest wall deformity. Symmetrical expansion. LUNGS: Equal air entry with bilateral crackles CVS: Regular rate and rhythm, normal S1 and S2, no gallops, no murmurs, no rubs ABDOMEN: Soft, nontender. No hepatosplenomegaly, normal bowel sounds, no guarding or rigidity. EXTREMITIES: No clubbing, no edema, no cyanosis, 2+ pulses and upper and lower extremities. MUSCULOSKELETAL: Muscle strength and tone normal. SPINE: No scoliosis or deformity SKIN: No rashes CENTRAL NERVOUS SYSTEM: Alert and oriented -1. No focal deficits, tone is normal in all 4 extremities. PSYCHIATRIC: Alert and oriented -1. Confused Intact judgment and insight. - Labs CBC & Chem 7: 06/30/21 06:18 06/30/21 06:18 Labs: Abnormal Lab Results - Last 24 Hours (Table) 07/01/21 07/01/21 07/02/21 Range/Units 16:53 20:46 11:43 POC Glucose (mg/dL) 129 H 102 H 151 H (75-99) mg/dL Microbiology - Last 24 Hours (Table) 06/25/21 21:03 Blood Culture - Final Blood No Growth after 144 hours 11/23/21 18:45 Blood Culture - Final Blood No Growth after 144 hours Assessment and Plan Plan: Assessment: #1. Acute hypoxic respiratory failure secondary to COVID-19 pneumonia, patient was outside the window for Remdesivir as she presented with a 2 week history of symptoms. Not vaccinated against COVID-19 #2. Altered mental status, possibly related to hypoxic respiratory failure r elated to the above, patient has a component of chronic intermittent confusion at home according to the daughter #3. Elevated inflammatory markers related to acute COVID-19 pneumonia, improving #4. Hard of hearing #5. History of CVA/TIA #6. Hypertension #7. Hyperlipidemia Plan: Continue to wean Fio2 to keep o2 sats at or above 90% Fio2 has been cut back to 5 l/min Continue current medical treatment Maintain safety precautions Continue current dose Decadron and Lovenox, continue COVID-19 vitamins Obtain inflammatory markers, basic labs and a cxr tomorrow We'll continue to follow her clinical course I performed a history & physical examination of the patient and discussed their management with my nurse practitioner, Bessie Marte. I reviewed the nurse practitioner's note and agree with the documented findings and plan of care. Lung sounds are positive for diminished breath sounds throughout the lung sanders. The findings and the impression was discussed with the patient. I attest to the documentation by the nurse practitioner. Time with Patient: Less than 30
[2021-07-02 16:36] LABS: Glucose,Whole Blood 150 mg/dL (75-99)
[2021-07-02 20:36] LABS: Glucose,Whole Blood 110 mg/dL (75-99)
[2021-07-02] MEDS: ZOLPIDEM 5 MG TAB PO SCH (21:26)
--- NOTE | 2021-07-02 22:21 | PN ---
PROGRESS NOTE DATE OF SERVICE: 07/02/2021 REASON FOR FOLLOWUP: COVID-19 pneumonia. INTERVAL HISTORY: The patient is afebrile. The patient is breathing slightly comfortably today. The patient is down to 4 L nasal cannula. The patient denies having any chest pain. No worsening cough or sputum production. No abdominal pain or diarrhea. PHYSICAL EXAMINATION: Blood pressure 138/82 with a pulse of 94, temperature 97.6. She is 91% on 4 L nasal cannula. General description is an elderly female lying in bed in no distress. Respiratory system: Unlabored breathing, decreased intensity of breath sounds. No wheeze. Heart S1, S2. Regular rate and rhythm. Abdomen soft, no tenderness. LABS: No new labs have been obtained today. DIAGNOSTIC IMPRESSION AND PLAN: Patient with acute COVID-19 pneumonia in this patient did have overall clinical improvement. She is down to 4 L oxygen. Patient to continue with dexamethasone, Lovenox, zinc and ascorbic acid along with respiratory support and monitor clinical course closely. MMODL / IJN: [id number] /
[2021-07-03 07:01] LABS: Glucose,Whole Blood 104 mg/dL (75-99)
[2021-07-03] MEDS: INSULIN ASPART (NovoLOG) 100 UNIT/ML VIAL SQ SCH ×4 (07:29→21:24)
--- NOTE | 2021-07-03 08:08 | XR ---
EXAMINATION TYPE: XR chest 1V portable DATE OF EXAM: 07/03/2021 COMPARISON: 06/30/2021 INDICATION: Covid TECHNIQUE: Single frontal view of the chest is obtained. FINDINGS: The heart size is normal. The pulmonary vasculature is normal. Bibasilar infiltrates are present. Left lower lobe infiltrate is stable. IMPRESSION: 1. Bibasilar infiltrates. Findings are stable from comparison. Continued follow-up is recommended.
[2021-07-03 09:21] LABS: Basophils # (A) 0.02 X 10*3/uL (0.00-0.10); Basophils % (A) 0.2 %; Eosinophils # (A) 0 X 10*3/uL (0.04-0.35); Eosinophils % (A) 0 %; HCT 44.9 % (37.2-46.3); HGB 14.4 g/dL (12.0-15.0); Lymphocytes # (A) 1.73 X 10*3/uL (0.90-5.00); Lymphocytes % (A) 14.2 %; MCH 27.9 pg (27.0-32.0); MCHC 32.1 g/dL (32.0-37.0); Mean Platelet Volume 10.9 fL (9.5-12.2); Monocytes # (A) 0.86 X 10*3/uL (0.20-1.00); Monocytes % (A) 7.1 %; Neutrophils % (A) 77.3 %; Platelet Count 396 X 10*3/uL (140-440); RBC 5.16 X 10*6/uL (4.10-5.20); RDW 13.4 % (11.5-14.5); WBC 12.15 X 10*3/uL (4.50-10.00)
[2021-07-03] MEDS: ASCORBIC ACID 500 MG TAB PO SCH (09:25)
[2021-07-03] MEDS: CHOLECALCIFEROL 25 MCG (1000 IU) TABLET PO SCH (09:25)
[2021-07-03] MEDS: FAMOTIDINE 20 MG TAB PO SCH (09:25)
[2021-07-03] MEDS: hydrALAZINE HCL 25 MG TAB PO SCH ×2 (09:25→21:28)
[2021-07-03] MEDS: ZINC SULFATE 220 MG CAP PO SCH (09:25)
[2021-07-03] MEDS: DEXAMETHASONE SOD PHOSPHATE 10 MG/ML 1 ML VIAL IVP SCH (09:25)
[2021-07-03] MEDS: ENOXAPARIN 40 MG/0.4 ML SYRINGE SQ SCH (09:26)
[2021-07-03] MEDS: DEXTROSE 5%-0.9% NACL 1,000 ML IV SCH ×2 (09:26→21:28)
[2021-07-03 09:38] LABS: African American GFR (CKD) 58.4 (60.0-200.0); Albumin 3.1 g/dL (3.8-4.9); Albumin/Globulin Ratio 1.22 (1.60-3.17); Anion Gap 10.4 mmol/L (10.00-18.00); BUN/Creat Ratio 23.76 Ratio (12.00-20.00); C Reactive Protein 0.4 mg/dL (0.00-0.80); Calcium 8.9 mg/dL (8.7-10.3); Carbon Dioxide 24.8 mmol/L (20.0-27.5); Globulin 2.6 g/dL (1.6-3.3); Non-African American GFR(CKD) 50.4 (60.0-200.0); Potassium 3.9 mmol/L (3.5-5.5); Total Bilirubin 0.5 mg/dL (0.30-1.20); Total Protein 5.7 g/dL (6.2-8.2)
[2021-07-03] MEDS: ALBUTEROL HFA INHALER INHALATION PRN (09:43)
[2021-07-03 11:58] LABS: Glucose,Whole Blood 140 mg/dL (75-99)
--- NOTE | 2021-07-03 13:14 | P.PN ---
Subjective Progress Note Date: 07/03/21 Principal diagnosis: Dyspnea On 06/29/2021 patient seen in follow-up on medical surgical floor. She is confused, she is currently up to 9 L of oxygen pulse ox is 92%. She is on D5 half-normal saline at a rate of 75 ML per hour, she is on Decadron 6 mg daily and prophylactic dose Lovenox. Patient has been afebrile, hemodynamically she is stable, lung sounds positive for bilateral crackles. Patient is a poor historian, she is confused, she has a chair alarm on his she attempts to get up on her own. Appetite is poor. But clinical patient looks to be in no distress. 07/01/2021 patient seen in follow-up on medical surgical floor, patient is a very poor historian, she remains fused, and according to the daughter patient is confused intermittently at home although was never officially diagnosed with dementia. Appears to be breathing comfortably, she does have a cough, no chest discomfort. Breathing fairly comfortably, she is currently on 7 L of oxygen and patient has been requiring between 6 and 8 L of oxygen, pulse ox is around 91- 96%, blood pressure is elevated at 180/90 with a mean of 121. Patient is on Decadron 6 mg daily, Lovenox 40 daily. Patient was outside the window for Remdesivir, and currently continues on supportive treatment. Today's labs white blood cell count of 11.4, hemoglobin of 14.9, d-dimer is negative at 0.52, electrolytes and renal profile were unremarkable, and her inflammatory markers are improving with LDH down to 319, and CRP of 4.4. Her last chest x-ray from 06/30/2021 showed left greater than right airspace and interstitial opacities with a suggestion of slight worsening. On today's evaluation on 07/02/2021 patient seen in follow-up on medical surgical floor, she is resting comfortably in bed, she is sleeping, she is on 7 L of oxygen pulse ox is 95%, she is breathing comfortably, afebrile, vital signs have been stable, the nursing staff reports that patient was a bit less confused today, and she was able to state the correct year. Patient is currently on Decadron 6 mg daily, she is on active dose Lovenox 40 mg daily, albuterol inhaler, and COVID-19 vitamins including vitamin C, vitamin D and zinc. On 07/03/2021 patient seen in follow-up on medical surgical floor, currently she is requiring 2 L of oxygen, down from 5 L on yesterday's exam, her pulse ox is 93%, she is breathing very comfortably, she is more awake and conversant today, she is very confused, she does not know where she is at, she is disoriented to time, but she is answering simple questions, she denies any specific complaints. During oral intake, denies any nausea or vomiting, he is on Decadron 6 mg daily, she is on prophylactic dose Lovenox, COVID-19 vitamins. His lab 7 reviewed, with blood cell count is relatively stable at 12.1, hemoglobin is 14.4, platelet count is 396, d-dimer is 0.51, electrolytes are within normal omalley its, BUN is 24, creatinine is 1, LDH is improving and is down to 249 CRP is down to 0.40. Objective - Vital Signs Vital signs: Vital Signs Temp 97.4 F L 07/03/21 09:00 Pulse 73 07/03/21 09:00 Resp 17 07/03/21 09:00 BP 143/57 07/03/21 09:00 Pulse Ox 93 L 07/03/21 09:00 Intake & Output 07/02/21 07/03/21 07/03/21 18:59 06:59 18:59 Intake Total 960 Balance 960 Intake: Intake, IV Titration 600 Amount Dextrose 5%-0.9% NaCl 1, 600 000 ml @ 75 mls/hr IV . [id number] [facility] [place] Rx#:[id number] Oral 360 Other: Voiding Method Bedside Commode Bedside Commode Bedside Commode # Voids 2 # Bowel Movements 0 - Exam GENERAL EXAM: 85-year-old white female, on 2 L of oxygen the pulse ox of 93%, sleeping in bed in no apparent distress. HEAD: Normocephalic/atraumatic. EYES: Normal reaction of pupils, equal size. Conjunctiva pink, sclera white. NOSE: Clear with pink turbinates. THROAT: No erythema or exudates. NECK: No masses, no JVD, no thyroid enlargement, no adenopathy. CHEST: No chest wall deformity. Symmetrical expansion. LUNGS: Equal air entry with bilateral crackles CVS: Regular rate and rhythm, normal S1 and S2, no gallops, no murmurs, no rubs ABDOMEN: Soft, nontender. No hepatosplenomegaly, normal bowel sounds, no guarding or rigidity. EXTREMITIES: No clubbing, no edema, no cyanosis, 2+ pulses and upper and lower extremities. MUSCULOSKELETAL: Muscle strength and tone normal. SPINE: No scoliosis or deformity SKIN: No rashes CENTRAL NERVOUS SYSTEM: Alert and oriented -1. No focal deficits, tone is normal in all 4 extremities. PSYCHIATRIC: Alert and oriented -1. Confused Intact judgment and insight. - Labs CBC & Chem 7: 07/03/21 05:49 07/03/21 05:49 Labs: Abnormal Lab Results - Last 24 Hours (Table) 07/02/21 07/02/21 07/03/21 Range/Units 16:35 20:32 05:49 WBC 12.15 H (4.50-10.00) X 10*3/uL Immature Gran # 0.14 H (0.00-0.04) X 10*3/uL Neutrophils # 9.40 H (1.80-7.70) X 10*3/uL Eosinophils # 0 L (0.04-0.35) X 10*3/uL Est GFR (CKD-EPI)AfAm (60.0-200.0) Est GFR (CKD-EPI)NonAf (60.0-200.0) BUN/Creatinine Ratio (12.00-20.00) Ratio POC Glucose (mg/dL) 150 H 110 H (75-99) mg/dL Lactate Dehydrogenase (120-246) U/L Total Protein (6.2-8.2) g/dL Albumin (3.8-4.9) g/dL Albumin/Globulin Ratio (1.60-3.17) g/dL 07/03/21 07/03/21 07/03/21 Range/Units 05:49 07:00 11:57 WBC (4.50-10.00) X 10*3/uL Immature Gran # (0.00-0.04) X 10*3/uL Neutrophils # (1.80-7.70) X 10*3/uL Eosinophils # (0.04-0.35) X 10*3/uL Est GFR (CKD-EPI)AfAm 58.4 L (60.0-200.0) Est GFR (CKD-EPI)NonAf 50.4 L (60.0-200.0) BUN/Creatinine Ratio 23.76 H (12.00-20.00) Ratio POC Glucose (mg/dL) 104 H 140 H (75-99) mg/dL Lactate Dehydrogenase 249 H (120-246) U/L Total Protein 5.7 L (6.2-8.2) g/dL Albumin 3.1 L (3.8-4.9) g/dL Albumin/Globulin Ratio 1.22 L (1.60-3.17) g/dL Assessment and Plan Plan: Assessment: #1. Acute hypoxic respiratory failure secondary to COVID-19 pneumonia, patient was outside the window for Remdesivir as she presented with a 2 week history of symptoms. Not vaccinated against COVID-19 #2. Altered mental status, possibly related to hypoxic respiratory failure related to the above, patient has a component of chronic intermittent confusion at home according to the daughter. Seems to be improving #3. Elevated inflammatory markers related to acute COVID-19 pneumonia, improving #4. Hard of hearing #5. History of CVA/TIA #6. Hypertension #7. Hyperlipidemia Plan: Fio2 to keep o2 sats at or above 90% Fio2 has been cut back to 2 l/min Continue current medical treatment Maintain safety precautions Continue current dose Decadron and Lovenox, continue COVID-19 vitamins Inflammatory markers improving Clinically seems to be improving She could be considered for discharge today or tomorrow, may need placement Outpatient follow up with Dr. Marquez in 1-2 weeks We'll continue to follow her clinical course I performed a history & physical examination of the patient and discussed their management with my nurse practitioner, Bessie Marte. I reviewed the nurse practitioner's note and agree with the documented findings and plan of care. Lung sounds are positive for diminished breath sounds throughout the lung sanders. The findings and the impression was discussed with the patient. I attest to the documentation by the nurse practitioner. Time with Patient: Less than 30
[2021-07-03 16:54] LABS: Glucose,Whole Blood 139 mg/dL (75-99)
--- NOTE | 2021-07-03 17:13 | PN ---
PROGRESS NOTE DATE OF SERVICE: 07/03/2021 REASON FOR FOLLOWUP: COVID-19 pneumonia. INTERVAL HISTORY: Patient is afebrile. The patient is currently breathing comfortably on nasal cannula oxygen. The patient denies having any chest pain. No worsening cough or sputum production. No abdominal pain. No diarrhea. PHYSICAL EXAMINATION: Blood pressure 114/57, pulse of 70, temperature 97.4. She is 93% on 5 L nasal cannula. General description is an elderly female lying in bed in no distress. Respiratory system: Unlabored breathing, decreased intensity of breath sounds. No wheeze. Heart S1, S2. Regular rate and rhythm. Abdomen soft, no tenderness. LAB: Hemoglobin 14.4, white count 12.15, creatinine 1.0. DIAGNOSTIC IMPRESSION AND PLAN: Patient with acute COVID-19 pneumonia in this patient with minimal clinical improvement. The patient is covered with Decadron, Lovenox, zinc and ascorbic acid along with respiratory support and monitor clinical course closely. Continue supportive care. MMODL / IJN: [id number] /
[2021-07-03 20:24] LABS: Glucose,Whole Blood 111 mg/dL (75-99)
[2021-07-03] MEDS: ZOLPIDEM 5 MG TAB PO SCH (21:28)
[2021-07-04] MEDS: BENZONATATE 100 MG CAP PO PRN (02:15)
[2021-07-04 07:19] LABS: Glucose,Whole Blood 80 mg/dL (75-99)
[2021-07-04] MEDS: ALBUTEROL HFA INHALER INHALATION PRN ×3 (07:56→16:30)
[2021-07-04] MEDS: INSULIN ASPART (NovoLOG) 100 UNIT/ML VIAL SQ SCH ×4 (08:08→21:11)
[2021-07-04] MEDS: ASCORBIC ACID 500 MG TAB PO SCH (08:50)
[2021-07-04] MEDS: hydrALAZINE HCL 25 MG TAB PO SCH ×2 (08:50→21:16)
[2021-07-04] MEDS: CHOLECALCIFEROL 25 MCG (1000 IU) TABLET PO SCH (08:51)
[2021-07-04] MEDS: ZINC SULFATE 220 MG CAP PO SCH (08:51)
[2021-07-04] MEDS: DEXAMETHASONE SOD PHOSPHATE 10 MG/ML 1 ML VIAL IVP SCH (08:51)
[2021-07-04] MEDS: ENOXAPARIN 40 MG/0.4 ML SYRINGE SQ SCH (08:51)
[2021-07-04] MEDS: FAMOTIDINE 20 MG TAB PO SCH (08:51)
[2021-07-04 11:16] LABS: Basophils # (A) 0.03 X 10*3/uL (0.00-0.10); Basophils % (A) 0.3 %; Eosinophils # (A) 0.02 X 10*3/uL (0.04-0.35); Eosinophils % (A) 0.2 %; HCT 43.3 % (37.2-46.3); HGB 13.7 g/dL (12.0-15.0); Lymphocytes # (A) 1.62 X 10*3/uL (0.90-5.00); Lymphocytes % (A) 16.4 %; MCHC 31.6 g/dL (32.0-37.0); MCV 88.4 fL (80.0-97.0); Mean Platelet Volume 10.6 fL (9.5-12.2); Monocytes # (A) 0.88 X 10*3/uL (0.20-1.00); Monocytes % (A) 8.9 %; Neutrophils # (A) 7.22 X 10*3/uL (1.80-7.70); Neutrophils % (A) 73.2 %; Platelet Count 332 X 10*3/uL (140-440); RDW 13.3 % (11.5-14.5); WBC 9.87 X 10*3/uL (4.50-10.00)
[2021-07-04 12:00] LABS: Glucose,Whole Blood 113 mg/dL (75-99)
[2021-07-04 12:18] LABS: African American GFR (CKD) 59.1 (60.0-200.0); Blood Urea Nitrogen 19.5 mg/dL (9.0-27.0); Calcium 8.5 mg/dL (8.7-10.3); Carbon Dioxide 21.7 mmol/L (20.0-27.5); Chloride 107 mmol/L (96-109); Glucose 89 mg/dL (70-110); Potassium 3.7 mmol/L (3.5-5.5); Sodium 141 mmol/L (135-145)
[2021-07-04 12:48] LABS: C Reactive Protein <0.30 mg/dL (0.00-0.80); LDH 236 U/L (120-246)
--- NOTE | 2021-07-04 14:01 | P.PN ---
Subjective Progress Note Date: 07/04/21 Principal diagnosis: Dyspnea On 06/29/2021 patient seen in follow-up on medical surgical floor. She is confused, she is currently up to 9 L of oxygen pulse ox is 92%. She is on D5 half-normal saline at a rate of 75 ML per hour, she is on Decadron 6 mg daily and prophylactic dose Lovenox. Patient has been afebrile, hemodynamically she is stable, lung sounds positive for bilateral crackles. Patient is a poor historian, she is confused, she has a chair alarm on his she attempts to get up on her own. Appetite is poor. But clinical patient looks to be in no distress. 07/01/2021 patient seen in follow-up on medical surgical floor, patient is a very poor historian, she remains fused, and according to the daughter patient is confused intermittently at home although was never officially diagnosed with dementia. Appears to be breathing comfortably, she does have a cough, no chest discomfort. Breathing fairly comfortably, she is currently on 7 L of oxygen and patient has been requiring between 6 and 8 L of oxygen, pulse ox is around 91- 96%, blood pressure is elevated at 180/90 with a mean of 121. Patient is on Decadron 6 mg daily, Lovenox 40 daily. Patient was outside the window for Remdesivir, and currently continues on supportive treatment. Today's labs white blood cell count of 11.4, hemoglobin of 14.9, d-dimer is negative at 0.52, electrolytes and renal profile were unremarkable, and her inflammatory markers are improving with LDH down to 319, and CRP of 4.4. Her last chest x-ray from 06/30/2021 showed left greater than right airspace and interstitial opacities with a suggestion of slight worsening. On today's evaluation on 07/02/2021 patient seen in follow-up on medical surgical floor, she is resting comfortably in bed, she is sleeping, she is on 7 L of oxygen pulse ox is 95%, she is breathing comfortably, afebrile, vital signs have been stable, the nursing staff reports that patient was a bit less confused today, and she was able to state the correct year. Patient is currently on Decadron 6 mg daily, she is on active dose Lovenox 40 mg daily, albuterol inhaler, and COVID-19 vitamins including vitamin C, vitamin D and zinc. On 07/03/2021 patient seen in follow-up on medical surgical floor, currently she is requiring 2 L of oxygen, down from 5 L on yesterday's exam, her pulse ox is 93%, she is breathing very comfortably, she is more awake and conversant today, she is very confused, she does not know where she is at, she is disoriented to time, but she is answering simple questions, she denies any specific complaints. During oral intake, denies any nausea or vomiting, he is on Decadron 6 mg daily, she is on prophylactic dose Lovenox, COVID-19 vitamins. His lab 7 reviewed, with blood cell count is relatively stable at 12.1, hemoglobin is 14.4, platelet count is 396, d-dimer is 0.51, electrolytes are within normal omalley its, BUN is 24, creatinine is 1, LDH is improving and is down to 249 CRP is down to 0.40. On 07/04/2021 patient seen in follow-up on medical surgical floor, clinically she looks stable, in no acute distress, she is more awake on today's exam, still remains confused, and today she is on more oxygen compared to yesterday's exam, she is on 5 L and her pulse ox is 83-97%, she is afebrile, blood pressures have been elevated at 175/70 with a mean of 105, she looks fairly comfortable, on today's labs, her white count is improving and is down to 9.8, hemoglobin is 13.7, her inflammatory markers were improving, and her LDH she is down to 236 and is now within normal limits on today's labs, and her CRP is less than 0.30, electrolytes and renal profile are unremarkable. She remains on Decadron 6 mg daily, she is on COVID-19 vitamins, and prophylactic Lovenox, her d-dimer on yesterday's labs was within normal limits at 0.51. Objective - Vital Signs Vital signs: Vital Signs Temp 97.6 F 07/04/21 10:00 Pulse 83 07/04/21 10:00 Resp 16 07/04/21 10:00 BP 175/70 07/04/21 10:00 Pulse Ox 83 L 07/04/21 10:00 Intake & Output 12/08/2307/04/21 07/04/21 18:59 06:59 18:59 Intake Total 354 Balance 354 Intake: Oral 354 Other: Voiding Method Bedside Commode Bedside Commode # Voids 1 1 - Exam GENERAL EXAM: 85-year-old white female, on 5 L of oxygen the pulse ox of 93%, confused HEAD: Normocephalic/atraumatic. EYES: Normal reaction of pupils, equal size. Conjunctiva pink, sclera white. NOSE: Clear with pink turbinates. THROAT: No erythema or exudates. NECK: No masses, no JVD, no thyroid enlargement, no adenopathy. CHEST: No chest wall deformity. Symmetrical expansion. LUNGS: Equal air entry with bilateral crackles CVS: Regular rate and rhythm, normal S1 and S2, no gallops, no murmurs, no rubs ABDOMEN: Soft, nontender. No hepatosplenomegaly, normal bowel sounds, no guarding or rigidity. EXTREMITIES: No clubbing, no edema, no cyanosis, 2+ pulses and upper and lower extremities. MUSCULOSKELETAL: Muscle strength and tone normal. SPINE: No scoliosis or deformity SKIN: No rashes CENTRAL NERVOUS SYSTEM: Alert and oriented -1. No focal deficits, tone is normal in all 4 extremities. PSYCHIATRIC: Alert and oriented -1. Confused Intact judgment and insight. - Labs CBC & Chem 7: 07/04/21 07:47 07/04/21 07:43 Labs: Abnormal Lab Results - Last 24 Hours (Table) 07/03/21 07/03/21 07/04/21 Range/Units 16:53 20:22 07:43 MCHC (32.0-37.0) g/dL Immature Gran # (0.00-0.04) X 10*3/uL Eosinophils # (0.04-0.35) X 10*3/uL Est GFR (CKD-EPI)AfAm 59.1 L (60.0-200.0) Est GFR (CKD-EPI)NonAf 51.0 L (60.0-200.0) POC Glucose (mg/dL) 139 H 111 H (75-99) mg/dL Calcium 8.5 L (8.7-10.3) mg/dL 07/04/21 07/04/21 Range/Units 07:47 11:58 MCHC 31.6 L (32.0-37.0) g/dL Immature Gran # 0.10 H (0.00-0.04) X 10*3/uL Eosinophils # 0.02 L (0.04-0.35) X 10*3/uL Est GFR (CKD-EPI)AfAm (60.0-200.0) Est GFR (CKD-EPI)NonAf (60.0-200.0) POC Glucose (mg/dL) 113 H (75-99) mg/dL Calcium (8.7-10.3) mg/dL Assessment and Plan Plan: Assessment: #1. Acute hypoxic respiratory failure secondary to COVID-19 pneumonia, patient was outside the window for Remdesivir as she presented with a 2 week history of symptoms. Not vaccinated against COVID-19 #2. Altered mental status, possibly related to hypoxic respiratory failure related to the above, patient has a component of chronic intermittent confusion at home according to the daughter. Seems to be improving #3. Elevated inflammatory markers related to acute COVID-19 pneumonia, improving #4. Hard of hearing #5. History of CVA/TIA #6. Hypertension #7. Hyperlipidemia Plan: Fio2 requirements are increased and are at 5 l/min Clinically patient is breathing comfortably Provide Incentive spirometer Patient needs pulm toileting Follow up CXR and d-dimer Hold discharge Continue Decadron, prophylactic Lovenox Will continue to follow I performed a history & physical examination of the patient and discussed their management with my nurse practitioner, Bessie Marte. I reviewed the nurse practitioner's note and agree with the documented findings and plan of care. Lung sounds are positive for diminished breath sounds throughout the lung sanders. The findings and the impression was discussed with the patient. I attest to the documentation by the nurse practitioner. Time with Patient: Less than 30
--- NOTE | 2021-07-04 16:24 | PN ---
PROGRESS NOTE DATE OF SERVICE: 07/04/2021 REASON FOR FOLLOW UP: Covid 19 pneumonia. INTERVAL HISTORY: Patient is afebrile. The patient is currently breathing comfortably. She is on 5 L nasal cannula. Patient denies having any chest pain. No worsening cough, sputum production. No abdominal pain. No diarrhea. PHYSICAL EXAMINATION: Blood pressure 128/77 with a pulse of 100. Temperature 98. She is 95% on 5 L nasal cannula. General description is an elderly female lying in bed in no distress. Respiratory system: Unlabored breathing, decreased intensity of breath sounds. No wheeze. Heart S1, S2. Regular rate and rhythm. Abdomen soft, no tenderness. Extremities: No edema of the feet. LABS: Hemoglobin 13.4, white count 9.87, creatinine 1.0. DIAGNOSTIC IMPRESSION/PLAN: Patient with acute COVID-19 pneumonia in this patient who seems to have shown some clinical improvement. X-ray with no worsening. The patient is currently covered with Dexamethasone, Lovenox, zinc and ascorbic acid along with respiratory support and monitor clinical course closely. MMODL / IJN: [id number] /
[2021-07-04 16:51] LABS: Glucose,Whole Blood 159 mg/dL (75-99)
[2021-07-04 20:53] LABS: Glucose,Whole Blood 107 mg/dL (75-99)
[2021-07-04] MEDS: ZOLPIDEM 5 MG TAB PO SCH (21:16)
[2021-07-05] MEDS: DEXTROSE 5%-0.9% NACL 1,000 ML IV SCH ×2 (01:51→09:24)
[2021-07-05] MEDS: hydrALAZINE HCL 25 MG TAB PO SCH ×2 (03:54→10:45)
[2021-07-05 07:02] LABS: Glucose,Whole Blood 82 mg/dL (75-99)
[2021-07-05] MEDS: INSULIN ASPART (NovoLOG) 100 UNIT/ML VIAL SQ SCH ×2 (07:02→12:17)
[2021-07-05] MEDS: ALBUTEROL HFA INHALER INHALATION PRN ×2 (08:01→11:52)
[2021-07-05] MEDS: FAMOTIDINE 20 MG TAB PO SCH (08:07)
[2021-07-05] MEDS: CHOLECALCIFEROL 25 MCG (1000 IU) TABLET PO SCH (08:07)
[2021-07-05] MEDS: ASCORBIC ACID 500 MG TAB PO SCH (08:08)
[2021-07-05] MEDS: ENOXAPARIN 40 MG/0.4 ML SYRINGE SQ SCH (08:08)
[2021-07-05] MEDS: ZINC SULFATE 220 MG CAP PO SCH (08:08)
[2021-07-05] MEDS: DEXAMETHASONE SOD PHOSPHATE 10 MG/ML 1 ML VIAL IVP SCH (08:08)
[2021-07-05 11:53] LABS: Glucose,Whole Blood 128 mg/dL (75-99)
--- NOTE | 2021-07-05 13:15 | P.PN ---
Subjective Progress Note Date: 07/05/21 Principal diagnosis: Dyspnea On 06/29/2021 patient seen in follow-up on medical surgical floor. She is confused, she is currently up to 9 L of oxygen pulse ox is 92%. She is on D5 half-normal saline at a rate of 75 ML per hour, she is on Decadron 6 mg daily and prophylactic dose Lovenox. Patient has been afebrile, hemodynamically she is stable, lung sounds positive for bilateral crackles. Patient is a poor historian, she is confused, she has a chair alarm on his she attempts to get up on her own. Appetite is poor. But clinical patient looks to be in no distress. 07/01/2021 patient seen in follow-up on medical surgical floor, patient is a very poor historian, she remains fused, and according to the daughter patient is confused intermittently at home although was never officially diagnosed with dementia. Appears to be breathing comfortably, she does have a cough, no chest discomfort. Breathing fairly comfortably, she is currently on 7 L of oxygen and patient has been requiring between 6 and 8 L of oxygen, pulse ox is around 91- 96%, blood pressure is elevated at 180/90 with a mean of 121. Patient is on Decadron 6 mg daily, Lovenox 40 daily. Patient was outside the window for Remdesivir, and currently continues on supportive treatment. Today's labs white blood cell count of 11.4, hemoglobin of 14.9, d-dimer is negative at 0.52, electrolytes and renal profile were unremarkable, and her inflammatory markers are improving with LDH down to 319, and CRP of 4.4. Her last chest x-ray from 06/30/2021 showed left greater than right airspace and interstitial opacities with a suggestion of slight worsening. On today's evaluation on 07/02/2021 patient seen in follow-up on medical surgical floor, she is resting comfortably in bed, she is sleeping, she is on 7 L of oxygen pulse ox is 95%, she is breathing comfortably, afebrile, vital signs have been stable, the nursing staff reports that patient was a bit less confused today, and she was able to state the correct year. Patient is currently on Decadron 6 mg daily, she is on active dose Lovenox 40 mg daily, albuterol inhaler, and COVID-19 vitamins including vitamin C, vitamin D and zinc. On 07/03/2021 patient seen in follow-up on medical surgical floor, currently she is requiring 2 L of oxygen, down from 5 L on yesterday's exam, her pulse ox is 93%, she is breathing very comfortably, she is more awake and conversant today, she is very confused, she does not know where she is at, she is disoriented to time, but she is answering simple questions, she denies any specific complaints. During oral intake, denies any nausea or vomiting, he is on Decadron 6 mg daily, she is on prophylactic dose Lovenox, COVID-19 vitamins. His lab 7 reviewed, with blood cell count is relatively stable at 12.1, hemoglobin is 14.4, platelet count is 396, d-dimer is 0.51, electrolytes are within normal omalley its, BUN is 24, creatinine is 1, LDH is improving and is down to 249 CRP is down to 0.40. On 07/04/2021 patient seen in follow-up on medical surgical floor, clinically she looks stable, in no acute distress, she is more awake on today's exam, still remains confused, and today she is on more oxygen compared to yesterday's exam, she is on 5 L and her pulse ox is 83-97%, she is afebrile, blood pressures have been elevated at 175/70 with a mean of 105, she looks fairly comfortable, on today's labs, her white count is improving and is down to 9.8, hemoglobin is 13.7, her inflammatory markers were improving, and her LDH she is down to 236 and is now within normal limits on today's labs, and her CRP is less than 0.30, electrolytes and renal profile are unremarkable. She remains on Decadron 6 mg daily, she is on COVID-19 vitamins, and prophylactic Lovenox, her d-dimer on yesterday's labs was within normal limits at 0.51. On 07/05/2021 patient seen in follow-up on medical surgical floor, she is much more awake and alert, less confused, she is conversant, she is asking when she can go home, she sat 93% on 5 L, FiO2 has been dropped down to 3 L, breathing comfortable, no cough, no chest discomfort. Tolerating oral intake, she remains on Decadron 6 Estuardo daily, prophylactic Lovenox. Clinically much improved, last chest x-ray from 07/03/2021 shows bibasilar infiltrates. Sounds reveal some minimal bibasilar crackles, her last set of inflammatory markers was yesterday, and was within normal limits with LDH of 236, and CRP at less than 0.30. D-dimer was within normal limits at 0.51. Objective - Vital Signs Vital signs: Vital Signs Temp 97.9 F 07/05/21 10:00 Pulse 83 07/05/21 10:00 Resp 18 07/05/21 10:00 BP 165/80 07/05/21 10:00 Pulse Ox 93 L 07/05/21 10:00 Intake & Output 07/04/21 07/05/21 07/05/21 18:59 06:59 18:59 Intake Total 708 Balance 708 Intake: Oral 708 Other: Voiding Method Bedside Commode Bedside Commode # Voids 3 1 # Bowel Movements 0 - Exam GENERAL EXAM: Much more awake and alert, less confused 85-year-old white female, on 5 L of oxygen the pulse ox of 93% HEAD: Normocephalic/atraumatic. EYES: Normal reaction of pupils, equal size. Conjunctiva pink, sclera white. NOSE: Clear with pink turbinates. THROAT: No erythema or exudates. NECK: No masses, no JVD, no thyroid enlargement, no adenopathy. CHEST: No chest wall deformity. Symmetrical expansion. LUNGS: Equal air entry with bilateral crackles CVS: Regular rate and rhythm, normal S1 and S2, no gallops, no murmurs, no rubs ABDOMEN: Soft, nontender. No hepatosplenomegaly, normal bowel sounds, no guarding or rigidity. EXTREMITIES: No clubbing, no edema, no cyanosis, 2+ pulses and upper and lower extremities. MUSCULOSKELETAL: Muscle strength and tone normal. SPINE: No scoliosis or deformity SKIN: No rashes CENTRAL NERVOUS SYSTEM: Alert and oriented -2. No focal deficits, tone is normal in all 4 extremities. PSYCHIATRIC: Alert and oriented -2. Confused Intact judgment and insight. - Labs CBC & Chem 7: 07/04/21 07:47 07/04/21 07:43 Labs: Abnormal Lab Results - Last 24 Hours (Table) 07/04/21 07/04/21 07/05/21 Range/Units 16:50 20:51 11:51 POC Glucose (mg/dL) 159 H 107 H 128 H (75-99) mg/dL Assessment and Plan Plan: Assessment: #1. Acute hypoxic respiratory failure secondary to COVID-19 pneumonia, patient was outside the window for Remdesivir as she presented with a 2 week history of symptoms. Not vaccinated against COVID-19 #2. Altered mental status, possibly related to hypoxic respiratory failure related to the above, patient has a component of chronic intermittent confusion at home according to the daughter. Improved #3. Elevated inflammatory markers related to acute COVID-19 pneumonia, improving #4. Hard of hearing #5. History of CVA/TIA #6. Hypertension #7. Hyperlipidemia Plan: Patient has maintained stable oxygenation on 5 L, we will cut back FiO2 to 3 L Home oxygen has been arranged Clinically patient is breathing very comfortably, no acute events overnight She seems to be a lot more awake, and less confused, more appropriate Last set of inflammatory markers was improved and was within normal limits, d- dimer was negative Patient is stable for discharge home from pulmonary perspective in the care of her daughter and home oxygen. She will complete outpatient course of oral Decadron 6 mg daily, for a total of 10 days She can continue on COVID-19 vitamins including vitamin C, vitamin D and zinc Outpatient follow-up with Dr. Witt in the office in 2 weeks Clinically patient is breathing comfortably I performed a history & physical examination of the patient and discussed their management with my nurse practitioner, Bessie Marte. I reviewed the nurse practitioner's note and agree with the documented findings and plan of care. Lung sounds are positive for diminished breath sounds throughout the lung sanders. The findings and the impression was discussed with the patient. I attest to the documentation by the nurse practitioner. Time with Patient: Less than 30
[2021-07-05 14:16] VITALS: BP 117/72; PULSE 94; RESP 19; TEMP 97.8
--- NOTE | 2021-07-05 17:45 | PN ---
PROGRESS NOTE DATE OF SERVICE: 07/05/2021 REASON FOR FOLLOWUP: COVID-19 pneumonia. INTERVAL HISTORY: The patient is afebrile. The patient is currently breathing comfortably. The patient denies having any chest pain. No nausea, vomiting. No abdominal pain or diarrhea. PHYSICAL EXAMINATION: Blood pressure 117/72 with a pulse of 94, temperature 97.8. She is 92% on 3 L nasal cannula. General description is an elderly female lying in bed in no distress. Respiratory system: Unlabored breathing, decreased intensity of breath sounds. No wheeze. Heart S1, S2. Regular rate and rhythm. Abdomen soft, no tenderness. LABS: No new labs have been obtained today. IMPRESSION/PLAN: Patient with acute COVID-19 pneumonia on clinical improvement, to continue dexamethasone, Lovenox, zinc and ascorbic acid. Slowly wean of oxygen. Continue supportive care. MMODL / IJN: [id number] /
== END 2021-07-05 16:35 | disposition home health service (06) | DRG 177 ==
LOC: EC 16:04 → 4SSUR 19:33
PROVIDERS: ADMIT Hospitalist; ATTEND Hospitalist
PROC: 5A0955A Assistance with Respiratory Ventilation, Greater than 96 Consecutive Hours, High Flow/Velocity Cannula (ICD-10-PCS; principal; 2021-06-25)
DX: U07.1 COVID-19 (principal); J96.01 Acute respiratory failure with hypoxia; J12.82 Pneumonia due to coronavirus disease 2019; R54 Age-related physical debility; D72.810 Lymphocytopenia; I10 Essential (primary) hypertension; E78.5 Hyperlipidemia, unspecified; E03.9 Hypothyroidism, unspecified; H91.90 Unspecified hearing loss, unspecified ear; H40.9 Unspecified glaucoma; M19.90 Unspecified osteoarthritis, unspecified site; Z79.899 Other long term (current) drug therapy; Z86.73 Personal history of transient ischemic attack (TIA), and cerebral infarction without residual deficits; Z96.611 Presence of right artificial shoulder joint; Z96.612 Presence of left artificial shoulder joint; Z96.1 Presence of intraocular lens; Z98.42 Cataract extraction status, left eye; Z98.41 Cataract extraction status, right eye; Z90.49 Acquired absence of other specified parts of digestive tract; Z87.19 Personal history of other diseases of the digestive system; Z96.642 Presence of left artificial hip joint; Z98.890 Other specified postprocedural states; Z88.5 Allergy status to narcotic agent; Z88.8 Allergy status to other drugs, medicaments and biological substances; Z80.9 Family history of malignant neoplasm, unspecified
CPT/HCPCS: 36415; 71045; 71046; 80048; 80053; 82728; 83605; 83615; 83735; 84145; 84484; 85025; 85379; 85610; 85730; 86140; 87040; 87635; 93005; 94640; 94760; 99285